=== PATIENT | male | born 1955 | race Caucasian/White ===

== ENCOUNTER 2020-10-09 16:30 | Emergency (ER) | payer OTHER, SELFPAY ==
[2020-10-09 16:43] VITALS: BP 153/83; PULSE 82; RESP 20; TEMP 36.6; O2SAT 98
--- NOTE | 2020-10-09 16:44 | ED.URI ---
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 Patient states his work informed him he should get a Covid test after a member presumably tested positive. 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 He has no complaints, was seen by his primary doctor today, and expresses specifically no fever, cough, S OB, rash, vomiting/diarrhea, CP, AVILES, URI symptoms, other/family contacts. Related Data Home Medications Medication Instructions Recorded Confirmed carvedilol 3.125 mg tablet 3.125 mg PO Q12H 08/17/19 10/09/20 cetirizine 10 mg tablet 10 mg PO DAILY 08/17/19 10/09/20 multivitamin 1 tablet PO DAILY 08/17/19 10/09/20 omega-3 fatty acids 1,000 mg 1,000 mg PO DAILY 08/17/19 10/09/20 capsule famotidine 20 mg DAILY 10/09/20 10/09/20 Allergies Allergy/AdvReac Type Severity Reaction Status Date / Time No Known Allergies Allergy Unknown Uncoded 08/17/19 13:33 Review of Systems Review of Systems: Narrative: General/Constitutional: No weight loss,fever Eyes: N0: Redness,discharge Ears/Nose/Throat: No: Epistaxis,ear discharge Respiratory: Denies: Hemoptysis Gastrointestinal: No Vomiting, Bleeding-rectal Skin: No Lumps, eruption Neurologic: No Focal Weakness,Sz Hematologic: Denies: Petechiae/Purpura Psychiatric: No: Suicida ideationl All Other Systems: Reviewed and Negative PMF Past Medical History Medical History (Updated 10/09/20 @ 17:03 by See Parks MD) Hearing loss Laceration of middle finger with tendon involvement Right carpal tunnel syndrome Vision loss Surgical History Surgical History (Updated 08/21/19 @ 10:40 by Ember Marie) H/O: vasectomy History of carpal tunnel surgery of left wrist History of carpal tunnel surgery of right wrist Family History Family History (Updated 08/21/19 @ 10:42 by Ember Marie) Other Arthritis Cancer Diabetes mellitus Hypertension Social History Social History (Updated 08/21/19 @ 10:47 by Ember Marie) Smoking status: Never smoker Alcohol intake: former 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 Gender identity (if verbalized by the patient): Male Exam Narrative: Exam Narrative: General Appearance: Well appearing, Conjunctiva clear Ears: External ear normal Nose: Normal nose Mouth/Throat: Normal appearing, Normal lips Neck: Supple Respiratory: Airway patent, No respiratory distress Musculoskeletal: Full ROM Skin: Warm, Dry Neurological: A&O x3, Normal affect Course Vital Signs Vital signs: Vital Signs Temperature 98 F 10/09/20 16:43 Pulse Rate 82 10/09/20 16:43 Respiratory Rate 20 10/09/20 16:43 Blood Pressure 153/83 H 10/09/20 16:43 Pulse Oximetry 98 10/09/20 16:43 Temperature 98 F 10/09/20 16:43 Pulse Rate 82 10/09/20 16:43 Respiratory Rate 20 10/09/20 16:43 Blood Pressure 153/83 H 10/09/20 16:43 Pulse Oximetry 98 10/09/20 16:43 MDM - URI/Sore Throat Lab Data Labs: Lab Results 10/09/20 Range/Units 16:30 POC SARS CoV-2 Ag Negative (Negative) Discharge Plan Discharge Clinical Impression: Contact with and (suspected) exposure to other viral communicable diseases Patient Disposition: Home, Self-Care Condition: Stable Prescriptions: No Action famotidine 20 mg tablet 20 mg DAILY RF: 0 carvedilol 3.125 mg tablet 3.125 mg PO Q12H RF: 0 cetirizine 10 mg tablet 10 mg PO DAILY RF: 0 omega-3 fatty acids 1,000 mg capsule 1,000 mg PO DAILY RF: 0 multivitamin [Multiple Vitamins] Tablet 1 tablet PO DAILY RF: 0 F
== END 2020-10-09 17:10 | disposition home or self-care (01) ==
PROVIDERS: Emergency Provider Emergency Medicine; PCP Family Medicine
DX: Z20.822 Contact with and (suspected) exposure to COVID-19 (principal)
CPT/HCPCS: 87426; 99213; C9803; G0463

== ENCOUNTER 2020-12-09 08:00 | Outpatient (CLI) | payer OTHER, SELFPAY | END 2020-12-09 08:01 | disposition home or self-care (01) | LOC: ANHCOVIDVC 08:00 | PROVIDERS: PCP Family Medicine | DX: Z23 Encounter for immunization (principal) | CPT/HCPCS: 0001A; 91300 ==

== ENCOUNTER 2020-12-30 08:02 | Outpatient (CLI) | payer OTHER, SELFPAY | END 2020-12-30 08:03 | disposition home or self-care (01) | LOC: ANHCOVIDVC 08:03 | PROVIDERS: PCP Family Medicine | DX: Z23 Encounter for immunization (principal) | CPT/HCPCS: 0002A; 91300 ==

== ENCOUNTER 2021-02-13 07:40 | Outpatient (CLI) | payer OTHER, SELFPAY ==
--- NOTE | ~2021-02-13 | XR_ITS ---
XR cervical spine 4-5V 02/13/2021 08:04 Indication: Neck pain and left arm numbness. Procedure: 5 views of the cervical spine Comparison: No prior studies for comparison. Findings: Vertebral body heights are disc spaces are preserved. No fracture or traumatic malalignment . No prevertebral soft tissue swelling. Lung apices are normal. Odontoid process within normal limits . There is mild multilevel uncinate and facet degenerative change. Impression: 1: Mild cervical spondylosis. Reviewed, dictated and finalized at location A. Impression: 1: Mild cervical spondylosis.
== END 2021-02-13 07:41 | disposition home or self-care (01) ==
PROVIDERS: PCP Family Medicine; Visit Provider Physician Assistant
DX: M47.812 Spondylosis without myelopathy or radiculopathy, cervical region (principal)
CPT/HCPCS: 72050

== ENCOUNTER 2021-07-20 10:07 | Emergency (ER) | payer OTHER, SELFPAY ==
--- NOTE | 2021-07-20 10:19 | ED.URI ---
HPI - URI/Sore Throat General Chief Complaint: Upper Respiratory Infection Stated Complaint: Cough,Sore Throat,Fever,Vomiting Time Seen by Provider: 07/20/21 11:05 Source: patient and RN notes reviewed Mode of arrival: ambulatory Limitations: no limitations History of Present Illness HPI Narrative: 55-year-old male presents with concern for cough, sore throat, fever, vomiting, body aches. He reports symptoms started on Wednesday after he received a shingles and pneumonia vaccine on the same day. He reports he has been fully vaccinated for Covid. He reports he has taken Tylenol periodically with no relief. He denies known sick contacts. MD elicited complaint: cough Related Data Home Medications Medication Instructions Recorded Confirmed carvedilol 3.125 mg tablet 3.125 mg PO Q12H 08/17/19 10/09/20 cetirizine 10 mg tablet 10 mg PO DAILY 08/17/19 10/09/20 multivitamin 1 tablet PO DAILY 08/17/19 10/09/20 omega-3 fatty acids 1,000 mg 1,000 mg PO DAILY 08/17/19 10/09/20 capsule famotidine 20 mg DAILY 10/09/20 10/09/20 Allergies Allergy/AdvReac Type Severity Reaction Status Date / Time No Known Allergies Allergy Unknown Uncoded 07/20/21 10:34 Review of Systems Review of Systems: CONSTITUTIONAL: Denies malaise, chills, sweats, or fever. EYES: Denies visual changes, redness, or discharge. ENT: Denies rhinorrhea, congestion, sinus pain, otalgia report sore throat. CARDIOVASCULAR: Denies chest pain, palpitations, or edema. RESPIRATORY: Reports cough. Denies dyspnea. GASTROINTESTINAL: Denies abdominal pain, diarrhea. Reports nausea and vomiting SKIN: Denies rash or itching. MUSCULOSKELETAL: Reports myalgia. NEUROLOGIC: Denies headache. All systems reviewed & are unremarkable except as noted in HPI and below PMFSH Past Medical History Medical History (Updated 07/20/21 @ 11:18 by Angie Rico NP) Hearing loss Laceration of middle finger with tendon involvement Right carpal tunnel syndrome Vision loss Surgical History Surgical History (Updated 08/21/19 @ 10:40 by Ember Marie) H/O: vasectomy History of carpal tunnel surgery of left wrist History of carpal tunnel surgery of right wrist Family History Family History (Updated 08/21/19 @ 10:42 by Ember Marie) Other Arthritis Cancer Diabetes mellitus Hypertension Social History Social History (Updated 08/21/19 @ 10:47 by Ember Marie) Smoking status: Never smoker Alcohol intake: former Alcohol use details: No alcohol since Jun 1978 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 There is no relevant family history pertinent to the presenting complaint Exam Narrative: GENERAL: Nontoxic-appearing, well-nourished, and in no acute distress. HEAD: Normocephalic EYES: PERRLA, conjunctivae clear ENT: Nares clear. Mucous membranes moist. TM pearly lora with dull light reflex bilaterally; no tragal tenderness. Oropharynx not erythematous without lesions. Tonsils not enlarged and without exudate, no drooling, no hoarseness, no trismus, uvula midline. NECK: Supple. No lymphadenopathy CHEST: Clear to auscultation, breath sounds equal. No wheezing, rhonchi, rales, or stridor. No respiratory distress, speaks in full sentences. Cough noted HEART: Regular rate and rhythm. No murmur heard. SKIN: Warm, dry, no rash. NEURO: Alert and oriented x3. PSYCH: Normal mood and affect Course Course Emergency Course: Patient is aware of diagnosis, understands and agrees to treatment plan. Anticipatory guidance given. Patient agrees to follow-up as directed and is aware of reasons to seek care at the emergency department. Portions of this record may have been created with voice recognition software Vital Signs Vital signs: Reviewed. MDM - URI/Sore Throat MDM Narrative Medical
[2021-07-20 10:27] VITALS: BP 134/79; PULSE 79; RESP 18; TEMP 36.6; O2SAT 100
== END 2021-07-20 11:35 | disposition home or self-care (01) ==
PROVIDERS: Emergency Provider Nurse Practitioner; PCP Family Medicine
DX: J40 Bronchitis, not specified as acute or chronic (principal)
CPT/HCPCS: 87804; 99213; G0463

== ENCOUNTER 2021-10-02 12:06 | Emergency (ER) | payer OTHER, MEDICARE, SELFPAY ==
[2021-10-02] VITALS (14 sets, daily range): BP systolic 118–140; BP diastolic 75–88; PULSE 87–111; RESP 15–37; TEMP 37–37.4; O2SAT 100
--- NOTE | ~2021-10-02 | XR_ITS ---
EXAMINATION: XR chest 1V portable DATE: 10/02/2021 12:27 INDICATION: Shortness of breath. COVID-19 pneumonia. TECHNIQUE: A single frontal view of the chest was obtained. COMPARISON: None. FINDINGS: There is mild scarring at right lung apex. There are mild airspace opacities in right mid a nd lower lung zones. No pleural effusion or pneumothorax. The heart size is normal. IMPRESSION: 1. Mild airspace opacities in right mid and lower lung zones, consistent with atelectasis versus pneu monia. Reviewed, dictated and finalized at location E. NT ACCOUNT ASSISTANT IMPRESSION: 1. Mild airspace opacities in right mid and lower lung zones, consistent with a telectasis versus pneumonia.
--- NOTE | 2021-10-02 12:15 | ECG_ITS ---
Measurements Intervals [place] Rate: 96 P: 48 [place]: 169 QRS: 27 QRSD: 82 T: 42 QT: 322 QTc: 408 Interpretive Statements SINUS RHYTHM INCOMPLETE RIGHT BUNDLE BRANCH BLOCK BASELINE ARTIFACT- III, AVR, AVF, V1-V6 BORDERLINE ECG Electronically Signed On 10-02-2021 15:05:04 BARREL CHARRER by Jorje Pratt D.O.
[2021-10-02 12:36] LABS: Basophils Percent Auto 0.2 % (0.2-1.2); Eosinophils Absolute Auto 0.2 K/mm3 (0-0.3); Eosinophils Percent Auto 1.3 % (0-4.4); Hematocrit 45.3 % (42.0-52.0); Hemoglobin 15.6 g/dL (14.0-18.0); Immature Granulocyte Absolute 0.04 K/mm3 (0.00-0.031); Immature Granulocyte Percent A 0.3 % (0-0.5); Lymphocytes Absolute Auto 1.62 K/mm3 (0.9-3.2); Lymphocytes Percent Auto 12.7 % (18.3-44.2); Mean Corpuscular HGB Conc 34.4 g/dl (32-36); Mean Corpuscular Hemoglobin 32.1 pg (26-34); Mean Corpuscular Volume 93.2 fl (80-100); Mean Platelet Volume 9.3 fl (7.4-10.4); Monocytes Absolute Auto 1.3 K/mm3 (0.1-0.6); Monocytes Percent Auto 9.8 % (2.6-8.5); Neutrophils Absolute Auto 9.7 K/mm3 (1.3-6.7); Neutrophils Percent Auto 75.7 % (45.5-73.1); Platelet Count Result 271 k/mm3 (150-375); Red Blood Count 4.86 M/mm3 (4.6-6.20); Red Cell Distribution Width 12.1 % (11.5-14.5); White Blood Count 12.8 K/mm3 (4.5-10.0)
[2021-10-02 12:48] LABS: Alanine Aminotransferase 27 U/L (4-50); Albumin Level 4.1 g/dL (3.5-5.1); Alkaline Phosphatase 85 U/L (38-126); Anion Gap 5 mmol/L (8-16); Aspartate Amino Transferase 31 U/L (17-59); Blood Urea Nitrogen 15 mg/dL (9-20); Carbon Dioxide 30 mmol/L (22-30); Chloride 102 mmol/L (98-107); Estimated CRCL calculation 71 ml/min; Estimated Glomerular Filt Rate > 60; Glucose 119 mg/dL (65-110); Potassium 4.1 mmol/L (3.4-5.0); Sodium 137 mmol/L (137-145)
--- NOTE | 2021-10-02 12:58 | ED.SOB ---
HPI - SOB/Dyspnea General Chief Complaint: Shortness of Breath/Dyspnea Stated Complaint: Covid-19+ pneumonia? Time Seen by Provider: 10/02/21 12:45 Source: patient Mode of arrival: ambulatory Limitations: no limitations History of Present Illness HPI Narrative: 65-year-old male Here for cough and shortness of breath Patient said that 2 weeks ago he had onset of an illness with predominantly diarrhea nausea and muscle aches but also a cough He had a positive Covid test at that time At some point he also took a Medrol Dosepak and sounds like he may also have an inhaler of some sort Here because he still has kind of a harsh cough and when he coughs he is short of breath Non-smoker Related Data Home Medications Medication Instructions Recorded Confirmed carvedilol 3.125 mg tablet 3.125 mg PO Q12H 08/17/19 07/20/21 cetirizine 10 mg tablet 10 mg PO DAILY 08/17/19 07/20/21 multivitamin 1 tablet PO DAILY 08/17/19 07/20/21 omega-3 fatty acids 1,000 mg 1,000 mg PO DAILY 08/17/19 07/20/21 capsule famotidine 20 mg DAILY 10/09/20 07/20/21 bimatoprost [Lumigan] 2 drp EACH EYE DAILY 07/20/21 07/20/21 metoprolol succinate 25 mg PO DAILY 07/20/21 07/20/21 Allergies Allergy/AdvReac Type Severity Reaction Status Date / Time No Known Allergies Allergy Verified 10/02/21 12:12 Review of Systems Review of Systems: All systems reviewed & are unremarkable except as noted in HPI and below Constitutional: Constitutional: Reports no additional constitutional complaints, Denies chills, Reports fatigue, Denies fever(s), Denies headache(s) and Reports weakness Eyes: Eyes: Reports no additional eye complaints and Denies change in vision ENT: Denies headache(s) and Denies sore throat Cardiovascular: Cardiovascular: Denies chest pain and Denies dyspnea Respiratory: Respiratory: Reports chest congestion, Reports cough and Reports dyspnea Gastrointestinal: Gastrointestinal: Denies abdominal pain, Reports diarrhea and Denies vomiting Genitourinary: Genitourinary: Denies dysuria and Denies urinary frequency Musculoskeletal: Musculoskeletal: Denies deformity, Denies arthralgias, Denies joint swelling and Denies numbness Integumentary/Breasts: Skin/Breast: Denies rash and Denies wounds Neurologic: Denies headache(s), Denies focal weakness and Denies numbness Psychiatric: Psychiatric: Reports no additional psychiatric complaints Endocrine: Endocrine: Reports no additional endocrine complaints Hematologic/Lymphatic: Hematologic/Lymphatic: Reports no additional hematologic/lymphatic complaints Allergic/Immunologic: Allergic/Immunologic: Reports no additional allergic/immunologic complaints PMFSH Past Medical History Medical History Hearing loss Laceration of middle finger with tendon involvement Right carpal tunnel syndrome Vision loss Surgical History Surgical History H/O: vasectomy History of carpal tunnel surgery of left wrist History of carpal tunnel surgery of right wrist Family History Family History Other Arthritis Cancer Diabetes mellitus Hypertension Social History Social History Smoking status: Never smoker Alcohol intake: former Alcohol use details: No alcohol since Jun 1978 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
[2021-10-02] MEDS: ALBUTEROL SULFATE (*SP) INHALER 4 PUFF INHALATION (13:35)
[2021-10-02] MEDS: DOXYCYCLINE HYCLATE 100 MG TABLET PO (14:00)
== END 2021-10-02 14:05 | disposition home or self-care (01) ==
PROVIDERS: Emergency Medicine; Emergency Provider Emergency Medicine; PCP Family Medicine
DX: U07.1 COVID-19 (principal); R05.9 Cough, unspecified; I45.10 Unspecified right bundle-branch block; R91.8 Other nonspecific abnormal finding of lung field
CPT/HCPCS: 36415; 71045; 80053; 85025; 93005; 99283; A9270

== ENCOUNTER 2021-10-22 08:42 | Outpatient (CLI) | payer OTHER, MEDICARE, SELFPAY ==
--- NOTE | ~2021-10-22 | XR_ITS ---
XR chest 2V 10/22/2021 08:57 Indication: Pneumonia. Covid 19. Procedure: 2 view chest Comparison: 10/02/2021 Findings: There has been near complete resolution of bibasilar pneumonia. No pleural effusion. Heart size normal. No edema or pneumothorax. Impression: 1: Near-complete resolution of bibasilar pneumonia. Reviewed, dictated and finalized at location B. MILL OPERATOR Impression: 1: Near-complete resolution of bibasilar pneumonia.
== END 2021-10-22 08:43 | disposition home or self-care (01) ==
PROVIDERS: PCP Family Medicine; Visit Provider Physician Assistant
DX: U07.1 COVID-19 (principal); J12.82 Pneumonia due to coronavirus disease 2019
CPT/HCPCS: 71046

== ENCOUNTER 2022-02-07 10:04 | Emergency (ER) | payer MEDICARE, OTHER, SELFPAY ==
--- NOTE | 2022-02-07 10:25 | ED.GENADULT ---
HPI - General Adult General Chief complaint: Upper Respiratory Infection Stated complaint: sorethroat,lt ear pain Time Seen by Provider: 02/07/22 10:25 History of Present Illness HPI narrative: 66-year-old male patient presents to the [facility] with complaints of sore throat and left ear pain. Patient states this has been going on for about 3 days now. Denies fevers, body aches or chills. Patient states he has had 3 COVID vaccines and was last diagnosed with COVID in August 2021. Patient denies any chest pain, shortness of breath. Patient states he has had a lot of drainage. Denies any chest pain or shortness of breath. Denies any nausea, vomiting or diarrhea. Patient states he does not get flu shots typically because he got sick from one and has never had one again. Patient does take Zyrtec and famotidine daily for allergies. Related Data Home Medications Medication Instructions Recorded Confirmed cetirizine 10 mg tablet 10 mg PO DAILY 08/17/19 02/07/22 multivitamin (Multiple Vitamins 1 tablet PO DAILY 08/17/19 02/07/22 tablet) omega-3 fatty acids 1,000 mg 1,000 mg PO DAILY 08/17/19 02/07/22 capsule famotidine 20 mg tablet 20 mg BID 10/09/20 02/07/22 glucosamine sulf dipot 1 cap PO DAILY 02/07/22 02/07/22 chlr,msm,chond 550 mg-C 30 mg-oren 1 mg capsule (Glucosamine Chondroitin) Allergies Allergy/AdvReac Type Severity Reaction Status Date / Time No Known Allergies Allergy Verified 02/07/22 10:43 Review of Systems Review of Systems: CONSTITUTIONAL: Denies fever, chills, or sweats. EYES: Denies visual changes, redness, or discharge. ENT: Positive rhinorrhea, congestion, sore throat, and left otalgia. CARDIOVASCULAR: Denies chest pain, palpitations, or edema. RESPIRATORY: Denies cough or dyspnea. GASTROINTESTINAL: Denies abdominal pain, nausea, vomiting, or diarrhea. GENITOURINARY: Denies dysuria or hematuria. SKIN: Denies rash or itching. MUSCULOSKELETAL: Denies back pain, joint pain, or myalgia. NEUROLOGIC: Denies headache, numbness, or weakness. PSYCHIATRIC: Denies anxiety or depression. 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 There is no relevant family history pertinent to the presenting complaint. Exam Narrative: GENERAL: Well-appearing, well-nourished, and in no acute distress. HEAD: Normocephalic, atraumatic. EYES: PERRLA and EOMI. ENT: Nares with erythema and edema noted bilaterally, dry rhinorrhea in bilateral nares, no epistaxis. Mucous membranes moist. Posterior pharynx with no erythema, tonsillar lodgment, exudates or lesions present. There is some evidence of postnasal drip noted. Bilateral TMs are clear with no erythema or foreign bodies to the canal. NECK: Supple. No lymphadenopathy CHEST: Clear to auscultation. No respiratory distress. HEART: Regular rate and rhythm. No murmur heard. Normal peripheral pulses. ABDOMEN: Soft, nontender, nondistended, normal active bowel sounds. EXTREMITIES: Normal range of motion. No edema. SKIN: Warm, dry, no rash. NEURO: N
[2022-02-07 10:31] VITALS: BP 132/84; PULSE 70; RESP 18; TEMP 36.7; O2SAT 100
== END 2022-02-07 11:14 | disposition home or self-care (01) ==
PROVIDERS: Emergency Provider Nurse Practitioner Family; PCP Family Medicine
DX: J06.9 Acute upper respiratory infection, unspecified (principal); J30.9 Allergic rhinitis, unspecified; Z20.822 Contact with and (suspected) exposure to COVID-19; Z98.52 Vasectomy status; Z86.16 Personal history of COVID-19
CPT/HCPCS: 87081; 87426; 87880; 99213; C9803; G0463

== ENCOUNTER 2022-02-21 10:02 | Emergency (ER) | payer MEDICARE, OTHER, SELFPAY ==
[2022-02-21 10:22] VITALS: BP 134/78; PULSE 61; RESP 20; TEMP 36.3; O2SAT 99
[2022-02-21] MEDS: MECLIZINE HCL 25 MG TABLET 50 MG PO (10:56)
--- NOTE | 2022-02-21 10:58 | ED.GENADULT ---
HPI - General Adult General Chief complaint: Upper Respiratory Infection Stated complaint: dizziness,nausea Time Seen by Provider: 02/21/22 10:25 Source: patient Mode of arrival: ambulatory Limitations: no limitations History of Present Illness HPI narrative: Patient presents today complaining of dizziness that started yesterday. Dizziness was intermittent yesterday, but constant today. Dizziness is exacerbated with head movement. He vomited once this morning. Denies headache, vision changes, numbness or tingling, weakness, chest pain or shortness of breath, photophobia, phonophobia, fever. States he was in urgent care approximately 1 month ago and still has a persistent sore throat. Denies any senp-epr-eqwmtma treatment prior to arrival. No history of vertigo Related Data Home Medications Medication Instructions Recorded Confirmed cetirizine 10 mg tablet 10 mg PO DAILY 08/17/19 02/21/22 multivitamin (Multiple Vitamins 1 tablet PO DAILY 08/17/19 02/21/22 tablet) omega-3 fatty acids 1,000 mg 1,000 mg PO DAILY 08/17/19 02/21/22 capsule famotidine 20 mg tablet 20 mg BID 10/09/20 02/21/22 glucosamine sulf dipot 1 cap PO DAILY 02/07/22 02/21/22 chlr,msm,chond 550 mg-C 30 mg-oren 1 mg capsule (Glucosamine Chondroitin) Allergies Allergy/AdvReac Type Severity Reaction Status Date / Time No Known Allergies Allergy Verified 02/21/22 10:28 Review of Systems Review of Systems: CONSTITUTIONAL: Denies body aches, fever, chills, or sweats. EYES: Denies visual changes, redness, or discharge. ENT: Denies rhinorrhea, congestion, sore throat, or otalgia. CARDIOVASCULAR: Denies chest pain, palpitations, or edema. RESPIRATORY: Denies cough or dyspnea. GASTROINTESTINAL: Denies abdominal pain, nausea, vomiting, or diarrhea. GENITOURINARY: Denies dysuria or hematuria. SKIN: Denies rash, itching, or wounds. MUSCULOSKELETAL: Denies back pain, joint pain, or myalgia. NEUROLOGIC: Denies headache, numbness, tingling, or weakness.+ Dizziness PSYCH: Denies depression or anxiety. 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 Please see nursing chart for further information. There is no relevant family history pertinent to the presenting complaint Exam Narrative: GENERAL: Well-appearing, well-nourished, and in no acute distress. HEAD: Normocephalic, atraumatic. EYES: EOMI. PERRL. No nystagmus. No redness or drainage. Conjunctivae normal. EKWOK. ENT: Mucous membranes pink and moist. Nares clear. No rhinorrhea. TMs normal bilaterally. Throat normal. Uvula midline. NECK: Normal AROM. Supple. No lymphadenopathy. CHEST: No respiratory distress. Clear to auscultation. HEART: Regular rate and rhythm. No murmur appreciated. Normal peripheral pulses. EXTREMITIES: Normal range of motion. No edema. SKIN: Warm, dry, no rash. Capillary refill normal. Normal skin turgor. NEURO: No focal deficits. Alert and oriented x3. Gait unsteady due to dizziness. PSYCH: Normal affect. No signs
== END 2022-02-21 11:09 | disposition home or self-care (01) ==
PROVIDERS: Emergency Provider Nurse Practitioner; PCP Family Medicine
DX: R42 Dizziness and giddiness (principal); Z20.822 Contact with and (suspected) exposure to COVID-19; Z98.52 Vasectomy status
CPT/HCPCS: 87081; 87426; 87804; 87880; 99213; A9270; C9803; G0463

== ENCOUNTER 2023-10-02 09:23 | Emergency (ER) | payer MEDICARE, SELFPAY ==
--- NOTE | ~2023-10-02 | XR_ITS ---
EXAMINATION: XR chest 2V DATE: 10/02/2023 10:00 INDICATION: Cough TECHNIQUE: PA and lateral views of the chest are obtained. COMPARISON: 10/22/2021 FINDINGS: The lungs are free of acute opacities. No pleural effusion or pneumothorax. The cardiomedia stinal silhouette is normal. There is mild thoracic spondylosis. There is scarring in the right lung apex. IMPRESSION: 1. No acute cardiopulmonary abnormality. Reviewed, dictated and finalized at location F. IFICATION OFFICER
[2023-10-02 09:40] VITALS: BP 147/81; PULSE 71; RESP 18; TEMP 36.6; O2SAT 100
[2023-10-02 09:41] VITALS: BP 147/81; PULSE 71; RESP 18; TEMP 36.6; O2SAT 100
--- NOTE | 2023-10-02 09:54 | ED.URI ---
HPI - URI/Sore Throat General Chief Complaint: Upper Respiratory Infection Stated Complaint: cold /flu like symtoms Time Seen by Provider: 10/02/23 09:43 Source: patient and RN notes reviewed Mode of arrival: ambulatory Limitations: no limitations History of Present Illness HPI Narrative: Patient presents today with a one-week history of productive cough, postnasal drip, rhinorrhea, fatigue, and watering eyes. Denies shortness of breath or fever. No history of asthma or COPD. He has been using Aleve, cough drops, and Vicks Vaporub Related Data Home Medications Medication Instructions Recorded Confirmed cetirizine 10 mg tablet 10 mg PO DAILY 08/17/19 10/02/23 famotidine 20 mg tablet 20 mg BID 10/09/20 10/02/23 Allergies Allergy/AdvReac Type Severity Reaction Status Date / Time No Known Allergies Allergy Verified 10/02/23 09:40 Review of Systems Review of Systems: CONSTITUTIONAL: Denies body aches, fever, chills, or sweats.+ fatigue EYES: Denies visual changes, redness, or discharge.+ I watering ENT: Denies congestion, sore throat, or otalgia.+ rhinorrhea, postnasal drip CARDIOVASCULAR: Denies chest pain, palpitations, or edema. RESPIRATORY: Denies dyspnea.+ cough GASTROINTESTINAL: Denies abdominal pain, nausea, vomiting, or diarrhea. GENITOURINARY: Denies dysuria or hematuria. SKIN: Denies rash, itching, or wounds. MUSCULOSKELETAL: Denies back pain, joint pain, or myalgia. NEUROLOGIC: Denies headache, numbness, tingling, or weakness. PSYCH: Denies depression or anxiety. 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 Please see nursing chart for further information. There is no relevant family history pertinent to the presenting complaint Exam Narrative: GENERAL: Mildly ill-appearing, well-nourished, and in no acute distress. HEAD: Normocephalic, atraumatic. EYES: EOMI. No redness or drainage. Conjunctivae normal. ENT: Mucous membranes pink and moist. Nares clear. No rhinorrhea. TMs normal bilaterally. Throat normal. Uvula midline. NECK: Normal AROM. Supple. No lymphadenopathy. CHEST: No respiratory distress. Mild crackles in the left lower lobe, otherwise clear HEART: Regular rate and rhythm. No murmur appreciated. EXTREMITIES: Normal range of motion. No edema. SKIN: Warm, dry, no rash. Capillary refill normal. Normal skin turgor. NEURO: No focal deficits. Alert and oriented x3. Gait steady. PSYCH: Normal affect. No signs of depression or anxiety. Course Course Level of Care: Express Care Visit Vital Signs Vital signs: Vital Signs Temperature 97.8 F 10/02/23 09:40 Pulse Rate 71 10/02/23 09:40 Respiratory Rate 18 10/02/23 09:40 Blood Pressure 147/81 H 10/02/23 09:40 Pulse Oximetry 100 10/02/23 09:40 Oxygen Delivery Room Air 10/02/23 09:40 Temperature 97.8 F 10/02/23 09:41 Pulse Rate 71 10/02/23 09:41 Respiratory Rate 18 10/02/23 09:41 Blood Press
== END 2023-10-02 10:21 | disposition home or self-care (01) ==
PROVIDERS: Emergency Provider Nurse Practitioner; PCP Family Medicine
DX: J06.9 Acute upper respiratory infection, unspecified (principal)
CPT/HCPCS: 71046; 99213; G0463

== ENCOUNTER 2023-12-04 08:24 | Emergency (ER) | payer MEDICARE, SELFPAY ==
[2023-12-04 08:36] VITALS: BP 172/84; PULSE 68; RESP 20; TEMP 36.5; O2SAT 98
--- NOTE | 2023-12-04 08:38 | ED.URI ---
HPI - URI/Sore Throat General Chief Complaint: Upper Respiratory Infection Stated Complaint: Sore Throat,Bilateral Ear Irritation Time Seen by Provider: 12/04/23 08:38 Source: patient Mode of arrival: ambulatory Limitations: no limitations History of Present Illness HPI Narrative: 68-year-old male presents with complaint nasal congestion, postnasal drainage, sore throat, bilateral ear pain, dry cough, fatigue and weakness for 3 days. Afebrile. Denies nausea vomiting diarrhea. No chest pain or shortness of breath. Taking DayQuil NyQuil cold and flu and ibuprofen to treat symptoms. All systems reviewed and negative except as noted above. Related Data Home Medications Medication Instructions Recorded Confirmed cetirizine 10 mg tablet 10 mg PO DAILY 08/17/19 12/04/23 famotidine 20 mg tablet 20 mg BID 10/09/20 12/04/23 atorvastatin 10 mg tablet 10 mg PO HS 12/04/23 12/04/23 latanoprost 0.005 % eye drops 1 drp EACH EYE HS 12/04/23 12/04/23 Allergies Allergy/AdvReac Type Severity Reaction Status Date / Time No Known Allergies Allergy Verified 12/04/23 08:30 Review of Systems Review of Systems: CONSTITUTIONAL: Denies fever, chills, or sweats. EYES: Denies visual changes, redness, or discharge. ENT: Reports rhinorrhea, congestion, sinus pressure, sore throat, bilateral otalgia. CARDIOVASCULAR: Denies chest pain, palpitations, or edema. RESPIRATORY: reports cough. Denies dyspnea. GASTROINTESTINAL: Denies abdominal pain, nausea, vomiting, or diarrhea. GENITOURINARY: Denies dysuria or hematuria. SKIN: Denies rash or itching. MUSCULOSKELETAL: Denies back pain, joint pain, or myalgia. NEUROLOGIC: Denies headache, numbness, or weakness. PSYCHIATRIC: Denies anxiety or depression. All other systems reviewed are negative, except as documented in HPI. 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 There is no relevant family history pertinent to the presenting complaint. Exam Narrative: GENERAL: This is a well-nourished, well-developed patient, in no apparent distress. HEAD: normocephalic, atraumatic. EYES: PERRL. Sclera clear/white. Vision is grossly intact. EARS: External ears normal, auditory canals clear and without drainage, Fluid to bilateral TMs, dull light reflex with mild erythema without perforation. Hearing grossly intact. NOSE: External nose normal with congestion, clear nasal drainage, erythema to bilateral nares THROAT: Mucous membranes moist, postnasal drainage without erythema or swelling. NECK: Neck supple, non-tender without lymphadenopathy, masses or thyromegaly. CARDIOVASCULAR: Regular rate and rhythm without murmurs, gallops, or rubs. RESPIRATORY: Clear to auscultation. Breath sounds equal bilaterally. No wheezes, rales, or rhonchi. SKIN: warm, Dry, intact with no suspicious lesions or rash, good texture and turgor. NEURO: awake, alert, and oriented to person, place and time. There were no obvious focal neurologic abnormalities. EXTREMI
== END 2023-12-04 08:54 | disposition home or self-care (01) ==
PROVIDERS: Emergency Provider Nurse Practitioner Family; PCP Family Medicine
DX: H65.03 Acute serous otitis media, bilateral (principal); J01.90 Acute sinusitis, unspecified; Z98.52 Vasectomy status
CPT/HCPCS: 99213; G0463

== ENCOUNTER 2024-08-14 16:06 | Emergency (ER) | payer MEDICARE, SELFPAY ==
--- NOTE | ~2024-08-14 | XR_ITS ---
EXAMINATION: XR chest 2V DATE: 08/14/2024 18:01 INDICATION: Cough. TECHNIQUE: Frontal and lateral views of the chest were obtained. COMPARISON: Chest 2 views 10/02/2023 FINDINGS: There is no pneumonia, pleural effusion, or pneumothorax. The heart size is normal. IMPRESSION: 1. No acute cardiopulmonary disease. Reviewed, dictated and finalized at location A. RIFUGAL EXTRACTOR OPERATOR
[2024-08-14 17:17] VITALS: BP 135/80; PULSE 81; RESP 16; TEMP 36.1; O2SAT 99
[2024-08-14 17:45] LABS: EDCOVIDSCREEN Negative (Negative); EDINFLUASCREEN Negative (Negative); EDINFLUBSCREEN Negative (Negative); EDSTREPNEGPOS1 Negative (Negative)
--- NOTE | 2024-08-14 17:45 | ED.URI ---
HPI - URI/Sore Throat General Chief Complaint: Upper Respiratory Infection Stated Complaint: coughing and phlegm Time Seen by Provider: 08/14/24 17:45 Source: patient, RN notes reviewed and old records reviewed Mode of arrival: ambulatory Limitations: no limitations History of Present Illness HPI Narrative: 68-year-old male presents to the [facility] with productive cough that started several days ago. Had seen his primary care provider for ear pain. Was not given a antibiotic for a slight ear infection Onset (ago): day(s) Related Data Home Medications ?Medication ?Instructions ?Recorded ?Confirmed ?Last Taken ?Type cetirizine 10 mg tablet 10 mg PO DAILY 08/17/19 12/04/23 Unknown History famotidine 20 mg tablet 20 mg BID 10/09/20 12/04/23 Unknown History atorvastatin 10 mg tablet 10 mg PO HS 12/04/23 12/04/23 Unknown History latanoprost 0.005 % eye drops 1 drp EACH EYE HS 12/04/23 12/04/23 Unknown History Allergies Allergy/AdvReac Type Severity Reaction Status Date / Time No Known Allergies Allergy Verified 08/14/24 17:38 Review of Systems Review of Systems: All systems reviewed & are unremarkable except as noted in HPI and below Constitutional: Constitutional: Reports no additional constitutional complaints ENT: Reports as per HPI Cardiovascular: Cardiovascular: Reports no additional cardiovascular complaints, Denies chest pain and Denies dyspnea Respiratory: Respiratory: Reports as per HPI, Denies chest congestion, Reports cough and Denies dyspnea Gastrointestinal: Gastrointestinal: Reports no additional gastrointestinal complaints, Denies abdominal pain, Denies nausea and Denies vomiting Musculoskeletal: Musculoskeletal: Reports no additional musculoskeletal complaints Integumentary/Breasts: Skin/Breast: Reports system reviewed and no additional complaints, except as docu PMFSH Past Medical History Medical History Hearing loss Laceration of middle finger with tendon involvement Right carpal tunnel syndrome Vision loss Surgical History Surgical History H/O: vasectomy History of carpal tunnel surgery of left wrist History of carpal tunnel surgery of right wrist Family History Family History Other Arthritis Cancer Diabetes mellitus Hypertension Social History Social History Smoking status: Never smoker Alcohol intake: former Alcohol use details: No alcohol since Jun 1978 Occupation/Education: occupation 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 There is no relevant family history pertinent to the patient complaint. Exam Const: General: cooperative, healthy appearing, comfortable, no acute distress, well developed, alert and well nourished Nutritional Appearance: well nourished Orientation/consciousness: patient oriented x3 Limitations: no limitations HENMT: Head: normal to inspection Ears: hearing grossly normal bilaterally, external ears normal, TM's normal bilaterally, EAC's normal, mastoids normal and no periauricular adenopathy Face/Nose/Sinus: Normal external nose present, normal facial exam and face symmetric Face and sinus: normal facial exam and face symmetric Mouth: Yes Normal oral and palatal mucosa present, Yes lip normal and Yes tongue normal Throat: posterior oropharynx normal, uvula midline and no uvular edema Eyes: General: appearance normal, both eyes and all related structures Alignment and Position: alignment normal Periorbital: periorbital findings normal Neck: Neck: normal visual inspection, full ROM, no lymphadenopathy and no meningeal signs Chest: Chest palpation & inspection: normal inspection of the chest Resp: Effort & Inspection: normal respiratory effort and able to speak in complete sentences Auscultation: clear to auscultation bilaterally, no crackles, no rales, no rhonchi and no wheezes Cardio: Rate: regular rate Skin: General skin exam: normal color and no rashes or lesions noted Lesions: no lesions Rashes: no rashes Wounds: no wounds Neuro: General: patient oriented x3, gait normal, tone normal, moves all extremities and no meningeal signs Cognition (Neuro): normal cognition Speech: normal speech Gait exam (Neuro): Normal gait present Extrem: General: normal to inspection, full ROM, capillary refill normal and normal gait Psych: Appearance: grossly normal and well kempt Mental Status: mental status grossly normal Speech and movement: Normal speech and movement present and Clear speech present Affect: normal affect Attitude: cooperative Course Course Level of Care: Express Care Visit Vital Signs Vital signs: Vital Signs Temperature 97.0 F L 08/14/24 17:17 Pulse Rate 81 08/14/24 17:17 Respiratory Rate 16 08/14/24 17:17 Blood Pressure 135/80 08/14/24 17:17 Pulse Oximetry 99 08/14/24 17:17 Oxygen Delivery Room Air 08/14/24 17:17 Temperature 97.0 F L 08/14/24 17:17 Pulse Rate 81 08/14/24 17:17 Respiratory Rate 16 08/14/24 17:17 Blood Pressure 135/80 08/14/24 17:17 Pulse Oximetry 99 08/14/24 17:17 Oxygen Delivery Room Air 08/14/24 17:17 Reviewed MDM - URI/Sore Throat MDM Narrative Medical decision making narrative: Patient sitting comfortably in exam room. Nontoxic, vitals stable. Patient in no acute distress. Patient presents with URI symptoms, chest x-ray is negative. Patient appropriate for outpatient treatment of viral bronchitis with close follow-up Discharge instructions reviewed with patient, as well as provided in writing per nursing staff. The instructions also include specific and strict return/GO TO THE ER as well as f/u information. All questions have been answered, and the patient deny any further questions with discharge and discharge plan. Some parts of this dictation were generated by voice recognition software and may contain typographical and/or grammatical inaccuracies. Differential Diagnosis Differential diagnosis: Likely upper respiratory infection, otitis media, sinusitis, viral infection and bronchitis Lab Data Labs: Lab Results 08/14/24 Range/Units 17:25 POC Influenza A Ag Negative (Negative) POC Influenza B Ag Negative (Negative) POC SARS CoV-2 Ag Negative (Negative) POC Grp A Strep Screen Negative (Negative) Reviewed Imaging Data Radiologist's impression: EXAMINATION: XR chest 2V DATE: 08/14/2024 18:01 INDICATION: Cough. TECHNIQUE: Frontal and lateral views of the chest were obtained. COMPARISON: Chest 2 views 10/02/2023 FINDINGS: There is no pneumonia, pleural effusion, or pneumothorax. The heart size is normal. IMPRESSION: 1. No acute cardiopulmonary disease. Critical Care Time Critical Care Time Critical Care Time: No Discharge Plan Discharge Clinical Impression: Bronchitis Patient Disposition: Home, Self-Care Condition: Stable Instructions: Antibiotic Form, Acute Bronchitis (ED) Additional Instructions: Your rapid strep swab was negative today at [facility]. A throat culture will be sent to the laboratory for further testing. If the test is positive, you will receive a phone call within 48 hours and an appropriate antibiotic will be initiated at that time. Your rapid COVID test were negative Your rapid flu test was negative Your x-ray did not show signs of a pneumonia. Her symptoms are very consistent with bronchitis. It is very important to treat your symptoms. Drink plenty of water, Gatorade, Pedialyte, ice pops or Jell-O. -Alternate Tylenol and Motrin per package directions for fever or pain. You can alternate every 4 hours -Antihistamine medication such as Benadryl at night and Zyrtec/Claritin/Gaby during the day can help improve symptoms. -doing daily nasal irrigations can help relieve pressure your sinuses. Things like a Neti pot -Use Flonase twice a day for 5 days then daily to help reduce the inflammation and dry up your sinuses. -You can also use Mucinex. Be sure to drink plenty of water with this medication at least 8 ounces with every dose and it is important to drink 8 to 10 glasses of water per day. Water is a natural decongestant -Eat and drink things that are easy to swallow, like tea or soup, or popsicles. -Oral rinses such as: Salt water gargles and/or may use topical anesthetic (eg. Chloraseptic spray) or lozenges to relieve dryness or throat pain). -Frequent hand washing or hand auto apprentice mechanic is one of the best ways to prevent spread of infection. -Using a vaporizer or humidifier at night will also help thin secretions and help with coughing up phlegm. -Follow up with primary care provider in 7-10 days if condition is not improving - For new or worsening symptoms go directly to the nearest ER Patient Language: Dutch Prescriptions: New prednisone 20 mg tablet See Rx Instructions .Route .COMPLEX Qty: 9 0RF Rx Instructions: Take 40 mg daily for 3 days, 20 mg daily for 3 days No Action famotidine 20 mg tablet 20 mg BID atorvastatin 10 mg tablet 10 mg PO HS latanoprost 0.005 % drops 1 drp EACH EYE HS fluticasone propionate [Flonase Allergy Relief] 50 mcg/actuation spray,suspension 1 spray intranasal BID Qty: 16 0RF Rx Instructions: administer into each nostril cetirizine 10 mg tablet 10 mg PO DAILY Follow-up/Referrals: Wm,MD Tyrone [Primary Care Provider] - 1 Week ([facility] care follow up ) Stand Alone Forms: Work/School Release IP Time of Disposition: 18:22
== END 2024-08-14 18:25 | disposition home or self-care (01) ==
PROVIDERS: Emergency Provider Nurse Practitioner; PCP Family Medicine
DX: J40 Bronchitis, not specified as acute or chronic (principal); Z20.822 Contact with and (suspected) exposure to COVID-19; Z98.52 Vasectomy status
CPT/HCPCS: 71046; 87081; 87426; 87804; 87880; 99213; G0463

== ENCOUNTER 2024-11-29 09:04 | Outpatient (CLI) | payer MEDICARE, SELFPAY ==
--- NOTE | ~2024-11-29 | XR_ITS ---
AP view of the pelvis and AP and lateral views of the right hip Clinical history: Pain Findings: No acute fracture or dislocation is seen. Osseous alignment is anatomic. Bilateral hip and SI joint spaces are preserved. Soft tissues are unremarkable. Impression: No significant abnormality is seen. Reviewed, dictated and finalized at [facility]. Impression: No significant abnormality is seen.
--- NOTE | ~2024-11-29 | XR_ITS ---
Lumbosacral Spine: AP, oblique, and lateral views Clinical History: Pain Findings: The normal lordotic curve is maintained. The vertebral bodies and posterior elements are i ntact. There are mild degenerative disc changes throughout the lumbar spine. There is moderate to adv anced facet arthropathy at the lower lumbar spine. The sacroiliac joints are normally outlined. Impression: Moderate degenerative spondylosis overall, as detailed above. Reviewed, dictated and finalized at location M. Impression: Moderate degenerative spondylosis overall, as detailed above.
--- NOTE | ~2024-11-29 | XR_ITS ---
AP and oblique views of the SI joints HISTORY: Back pain FINDINGS: No fracture or dislocation seen. SI joints are unremarkable. Visualized hip joints are unre markable. No soft tissue abnormality seen. IMPRESSION: Normal exam. Reviewed, dictated and finalized at location . IMPRESSION: Normal exam.
--- OUTSIDE RECORDS SUMMARY | 2024-11-29 09:36 | XMS_ITS | Data Portability ---
Author Organization [place] - [facility] [employer], Main Office Address [address] [place] [address] Care Team Providers Care Sewer Line Photo Inspector Name Role Phone TYRONE BURK Primary Care Provider [phone] Assessment Encounter Date Assessment Date Assessment LastModified by Organization Details LastModified Time 09/13/2024 09/13/2024 68 yo M with - WELL ADULT VISIT - B/L EAR WAX - HTG, uncontrolled - HLD - ELEVATED BP, stable - GERD - SEASONAL ALLERGIC RHINITIS - B/L HEARING LOSS, chronic Annual labs: 09/14/23. CXR: 04/08/23. HbA1c, H pylori: 03/12/23. D/w pt in detail about his conditions, recent labs & imagines and further plan of care. Will do routine labs. Meds as directed. Diet and exercise explained in detail. BP diary education given and call us if any concerns. Cont f/u with ENT at [facility] as per schedule. Cont f/u with Ophtho as per schedule. Cont f/u with GI as per schedule. HM: Colonoscopy - 06/20, normal as per pt. Cont f/u with GI (5 yrs) as per schedule. Flu - Pt declined. Tdap, Pneumo, Shingrix - At pharmacy/HD. F/u in 2-3 weeks. B/l ear flushing on next visit. Annual labs in 09/24. Not available 09/13/2024 11:23:06 10/04/2024 10/04/2024 68 yo M with - B/L EAR WAX; s/p flushing today - PRE-DM, new - HYPERBILIRUBINE VLADIMIR, new - ELEVATED BP, stable - HLD - HTG - GERD - SEASONAL ALLERGIC RHINITIS - B/L HEARING LOSS, chronic HbA1c: 6.0(09/14/24) Annual labs: 09/14/24. Annual labs: 09/14/23. CXR: 04/08/23. HbA1c, H pylori: 03/12/23. D/w pt in detail about his conditions, recent labs & imagines and further plan of care. Verbal consent taken for b/l ear flushing. Pt did well. Pt declined for any new med. Meds as directed. Diet and exercise explained in detail. BP diary education given and call us if any concerns. Cont f/u with ENT at [facility] as per schedule. Cont f/u with Ophtho as per schedule. Cont f/u with GI as per schedule. HM: Colonoscopy - 06/20, normal as per pt. Cont f/u with GI (5 yrs) as per schedule. Flu - Pt declined. Tdap, Pneumo, Shingrix - At pharmacy/HD. F/u in 3 months. A1c, CMP in 01/21. Annual labs in 09/24. Not available 10/04/2024 10:38:43 Plan of Treatment Reminders Order Date Submit Date Provider Last Modified By Organization Details Last Modified Time Details Appointments Follow Up 2024 09:30A M Tyrone Burk MD Not available Not available Not available Any 15 2024 09:00A Mable Burk MD Not available Not available Not available Lab CMP, serum or plasma 2024 025 [facility] (Lab), [address] [place], [address], 10/04/2024 10:32:37 glycohemo globin, total, blood 2024 025 [email or web address] [facility] (Lab), [address] [place], [address], 10/04/2024 10:32:37 CBC w/ auto diff 2024 025 [facility] (Lab), [address] [place], [address], 09/14/2024 16:21:22 CMP, serum or plasma [address] (Lab), [address] [place], [address], 09/14/2024 16:20:54 urinalysi s complete, reflex culture [address] (Lab), [address] [place], [address], 09/14/2024 16:19:38 lipid panel, serum [address] (Lab), [address] [place], [address], 09/14/2024 16:20:27 TSH, serum or plasma [address] (Lab), [address] [place], [address], 09/14/2024 16:20:03 HbA1c (hemoglob in A1c), blood [address] (Lab), [address] [place], [address], 09/14/2024 16:19:08 PSA, serum or plasma [address] (Lab), [address] [place], [address], 09/14/2024 16:18:48 rapid strep group A, throat 2023 024 [place] [facility], [address] [place] [address], [phone], 08/11/2024 11:19:10 Referral None recorded. Procedures None recorded. Surgeries None recorded. Imaging XR, lumbosacr al spine, 4 or more view 2024 025 [email or web address] [facility], [address] [address], [place], [address], 11/28/2024 11:16:54 XR, sacroilia c joint(s), 3 or more view 2024 025 [email or web address] [facility], [address] [address], [place], [address], 11/28/2024 11:16:54 XR, hip, unilatera l, 2 or 3 view - With Pelvis [email or web address] [facility], [address], [address], 11/28/2024 11:16:54 Medication Orders cyclobenz aprine 10 mg tablet 2024 025 [facility] #[facility], [address], [place], [id number], 11/28/2024 11:12:29 diclofena c sodium 75 mg tablet,de layed release 2024 025 [facility] #21272, [address], [place], [id number], 11/28/2024 11:12:27 fenofibra te 54 mg tablet 2024 025 [email or web address] [facility]/Pharmacy #2510, [address] [place], [address], 11/01/2024 10:24:16 atorvasta tin 10 mg tablet 2024 025 [facility]/Pharmacy #2510, [address] [place], [address], 10/04/2024 10:32:41 fenofibra te 54 mg tablet 2024 025 [facility]/Pharmacy #2510, [address] [place], [address], 09/13/2024 11:17:13 Debrox 6.5 % ear drops 2024 025 AMENIA [facility] #[facility]64, [address], [place], [id number], 09/13/2024 11:19:31 atorvasta tin 10 mg tablet 2024 025 [facility]/Pharmacy #2510, [address] [place], [address], 09/13/2024 11:17:12 Medrol (Christian) 4 mg tablets in a dose pack 2023 024 [email or web address] [facility]/Pharmacy #2510, [address] [place], [address], 09/13/2024 11:16:47 Patient TargetsNo targets recorded. Patient Instructions Encounter Date Encounter Id Patient Instructions Last Modified By Organization Details Last Modified Time 09/13/2024 [id number] dash diet: care instructions [email or web address] Not available 09/13/2024 11:17:09 learning about high blood pressure [email or web address] Not available 09/13/2024 11:17:08 high cholesterol : care instructions Not available 09/13/2024 11:17:08 10/04/2024 [id number] dash diet: care instructions [email or web address] Not available 10/04/2024 10:32:37 learning about high blood pressure [email or web address] Not available 10/04/2024 10:32:37 prediabetes: car e instructions [email or web address] Not available 10/04/2024 10:40:46 high cholesterol : care instructions [email or web address] Not available 10/04/2024 10:32:37 Reason for Referral None Reported. Results Created Date Observation Date Name Description Value Unit Range Abnormal Flag Note LastModifiedBy Organization Detail LastModifiedTime 08/11/20 24 08/11/2024 rapid strep group A, throa t STREP A negati ve Not Available [id number] [address] [place], [address], 08/11/2024 11:07:19 09/14/19 25 09/14/2024 CBC/C OMPLE TE BLD COUNT W/DIF F white blood cells 3.8 x10'3 /uL 4.2-10 .8 low Not Available [facility] (Lab) [address] [place], [address], 09/14/2024 20:23:49 09/14/19 25 09/14/2024 CBC/C OMPLE TE BLD COUNT W/DIF F red blood cells 4.94 x10'6 /uL 4.10-5 .80 Not Available [facility] (Lab) [address] [place], [address], 09/14/2024 20:23:49 09/14/19 25 09/14/2024 CBC/C OMPLE TE BLD COUNT W/DIF F hemoglobin 15.9 g/dL 13.2-1 7.0 Not Available [facility] (Lab) [address] [place], [address], 09/14/2024 20:23:49 09/14/19 25 09/14/2024 CBC/C OMPLE TE BLD COUNT W/DIF F hematocrit 46.5 % 39.3-5 0.0 Not Available [facility] (Lab) [address] [place], [address], 09/14/2024 20:23:49 09/14/19 25 09/14/2024 CBC/C OMPLE TE BLD COUNT W/DIF F mean red cell volume 94.1 fL 80.0-9 7.0 Not Available [facility] (Lab) [address] [place], [address], 09/14/2024 20:23:49 09/14/19 25 09/14/2024 CBC/C OMPLE TE BLD COUNT W/DIF F mean red cell hemoglobin 32.2 pg 27.0-3 3.0 Not Available [facility] (Lab) [address] [place], [address], 09/14/2024 20:23:49 09/14/19 25 09/14/2024 CBC/C OMPLE TE BLD COUNT W/DIF F mean RBC HGB concentratio n 34.2 g/dL 31.0-3 6.0 Not Available [facility] (Lab) [address] [place], [address], 09/14/2024 20:23:49 09/14/19 25 09/14/2024 CBC/C OMPLE TE BLD COUNT W/DIF F red cell distribution width 12.1 % 11.8-1 5.5 Not Available [facility] (Lab) [address] [place], [address], 09/14/2024 20:23:49 09/14/19 25 09/14/2024 CBC/C OMPLE TE BLD COUNT W/DIF F platelets 228 x10'3 /uL 150-40 0 Not Available [facility] (Lab) [address] [place], [address], 09/14/2024 20:23:49 09/14/19 25 09/14/2024 CBC/C OMPLE TE BLD COUNT W/DIF F mean platelet volume 10.5 fL 9.0-12 .4 Not Available [facility] (Lab) [address] [place], [address], 09/14/2024 20:23:49 09/14/19 25 09/14/2024 CBC/C OMPLE TE BLD COUNT W/DIF F neutrophils 44.6 % 39.0-7 2.0 Not Available [facility] (Lab) [address] [place], [address], 09/14/2024 20:23:49 09/14/19 25 09/14/2024 CBC/C OMPLE TE BLD COUNT W/DIF F lymphocytes 38.5 % 16.0-4 7.0 Not Available [facility] (Lab) [address] [place], [address], 09/14/2024 20:23:49 09/14/19 25 09/14/2024 CBC/C OMPLE TE BLD COUNT W/DIF F monocytes 11.2 % 5.0-12 .0 Not Available [facility] (Lab) [address] [place], [address], 09/14/2024 20:23:49 09/14/19 25 09/14/2024 CBC/C OMPLE TE BLD COUNT W/DIF F eosinophils 4.9 % 1.0-7. 0 Not Available [facility] (Lab) [address] [place], [address], 09/14/2024 20:23:49 09/14/19 25 09/14/2024 CBC/C OMPLE TE BLD COUNT W/DIF F basophils 0.5 % 0.0-2. 0 Not Available [facility] (Lab) [address] [place], [address], 09/14/2024 20:23:49 09/14/19 25 09/14/2024 CBC/C OMPLE TE BLD COUNT W/DIF F immature granulocytes 0.3 % 0.00-0 .50 Not Available [facility] (Lab) [address] [place], [address], 09/14/2024 20:23:49 09/14/19 25 09/14/2024 CBC/C OMPLE TE BLD COUNT W/DIF F neutrophils, absolute count 1.71 x10'3 /uL 1.5-8. 0 Not Available [facility] (Lab) [address] [place], [address], 09/14/2024 20:23:49 09/14/19 25 09/14/2024 CBC/C OMPLE TE BLD COUNT W/DIF F lymphocytes, absolute count 1.48 x10'3 /uL 1.07-3 .43 Not Available [facility] (Lab) [address] [place], [address], 09/14/2024 20:23:49 09/14/19 25 09/14/2024 CBC/C OMPLE TE BLD COUNT W/DIF F monocytes, absolute count 0.43 x10'3 /uL 0.29-0 .99 Not Available [facility] (Lab) [address] [place], [address], 09/14/2024 20:23:49 09/14/19 25 09/14/2024 CBC/C OMPLE TE BLD COUNT W/DIF F eosinophils, absolute count 0.19 x10'3 /uL 0.02-0 .53 Not Available [facility] (Lab) [address] [place], [address], 09/14/2024 20:23:49 09/14/19 25 09/14/2024 CBC/C OMPLE TE BLD COUNT W/DIF F basophils, absolute count 0.02 x10'3 /uL 0.01-0 .08 Not Available [facility] (Lab) [address] [place], [address], 09/14/2024 20:23:49 09/14/19 25 09/14/2024 CBC/C OMPLE TE BLD COUNT W/DIF F immature granulocytes ,absolute 0.01 x10'3 /uL 0.00-0 .05 Not Available [facility] (Lab) [address] [place], [address], 09/14/2024 20:23:49 09/14/19 25 09/14/2024 CBC/C OMPLE TE BLD COUNT W/DIF F nucleated red blood cells 0.0 % -0 Not Available [facility] (Lab) [address] [place], [address], 09/14/2024 20:23:49 09/14/19 25 09/14/2024 CBC/C OMPLE TE BLD COUNT W/DIF F NRBC# 0.00 x10'3 /uL Not Available [facility] (Lab) [address] [place], [address], 09/14/2024 20:23:49 09/14/19 25 09/14/2024 URINA LYSIS COMPL ETE/I RIS W/RFX color YELLOW Not Available [facility] (Lab) [address] [place], [address], 09/14/2024 20:27:11 09/14/19 25 09/14/2024 URINA LYSIS COMPL ETE/I RIS W/RFX appear CLEAR Not Available [facility] (Lab) [address] [place], [address], 09/14/2024 20:27:11 09/14/19 25 09/14/2024 URINA LYSIS COMPL ETE/I RIS W/RFX specific gravity 1.021 1.001- 1.030 Not Available [facility] (Lab) [address] [place], [address], 09/14/2024 20:27:11 09/14/19 25 09/14/2024 URINA LYSIS COMPL ETE/I RIS W/RFX pH 6.5 pH_un its 5.0-9. 0 Not Available [facility] (Lab) [address] [place], [address], 09/14/2024 20:27:11 09/14/19 25 09/14/2024 URINA LYSIS COMPL ETE/I RIS W/RFX leukocytes NEGATI VE koko/u L negati ve- Not Available [facility] (Lab) [address] [place], [address], 09/14/2024 20:27:11 09/14/19 25 09/14/2024 URINA LYSIS COMPL ETE/I RIS W/RFX nitrite NEGATI VE negati ve- Not Available [facility] (Lab) [address] [place], [address], 09/14/2024 20:27:11 09/14/19 25 09/14/2024 URINA LYSIS COMPL ETE/I RIS W/RFX protein NEGATI VE mg/dL negati ve- Not Available [facility] (Lab) [address] [place], [address], 09/14/2024 20:27:11 09/14/19 25 09/14/2024 URINA LYSIS COMPL ETE/I RIS W/RFX glucose NORMAL mg/dL normal - Not Available [facility] (Lab) [address] [place], [address], 09/14/2024 20:27:11 09/14/19 25 09/14/2024 URINA LYSIS COMPL ETE/I RIS W/RFX ketones NEGATI VE mg/dL negati ve- Not Available [facility] (Lab) [address] [place], [address], 09/14/2024 20:27:11 09/14/19 25 09/14/2024 URINA LYSIS COMPL ETE/I RIS W/RFX urobilinogen NORMAL mg/dL normal - Not Available [facility] (Lab) [address] [place], [address], 09/14/2024 20:27:11 09/14/19 25 09/14/2024 URINA LYSIS COMPL ETE/I RIS W/RFX bilirubin NEGATI VE mg/dL negati ve- Not Available [facility] (Lab) [address] [place], [address], 09/14/2024 20:27:11 09/14/19 25 09/14/2024 URINA LYSIS COMPL ETE/I RIS W/RFX blood NEGATI VE mg/dL negati ve- Not Available [facility] (Lab) [address] [place], [address], 09/14/2024 20:27:11 09/14/19 25 09/14/2024 URINA LYSIS COMPL ETE/I RIS W/RFX white blood cells 0-8 /i??h pfi?? 0-8 Not Available [facility] (Lab) [address] [place], [address], 09/14/2024 20:27:11 09/14/19 25 09/14/2024 URINA LYSIS COMPL ETE/I RIS W/RFX red blood cells 0-4 /i??h pfi?? 0-4 Not Available [facility] (Lab) [address] [place], [address], 09/14/2024 20:27:11 09/14/19 25 09/14/2024 URINA LYSIS COMPL ETE/I RIS W/RFX bacteria NONE Not Available [facility] (Lab) [address] [place], [address], 09/14/2024 20:27:11 09/14/19 25 09/14/2024 URINA LYSIS COMPL ETE/I RIS W/RFX mucous OCCASI ONAL /i??l pfi?? abnormal Not Available [facility] (Lab) [address] [place], [address], 09/14/2024 20:27:11 09/14/19 25 09/14/2024 URINA LYSIS COMPL ETE/I RIS W/RFX squamous epithelial OCCASI ONAL /i??l pfi?? abnormal Not Available [facility] (Lab) [address] [place], [address], 09/14/2024 20:27:11 09/14/19 25 09/14/2024 COMPR EHENS EMILE METAB OLIC PANEL sodium 140 mmol/ L 137-14 5 Not Available [facility] (Lab) [address] [place], [address], 09/14/2024 20:52:35 09/14/19 25 09/14/2024 COMPR EHENS EMILE METAB OLIC PANEL potassium 5.1 mmol/ L 3.5-5. 1 Not Available [facility] (Lab) [address] [place], [address], 09/14/2024 20:52:35 09/14/19 25 09/14/2024 COMPR EHENS EMILE METAB OLIC PANEL chloride 104 mmol/ L 98-107 Not Available [facility] (Lab) [address] [place], [address], 09/14/2024 20:52:35 09/14/19 25 09/14/2024 COMPR EHENS EMILE METAB OLIC PANEL carbon dioxide 29 mmol/ L 22-30 Not Available [facility] (Lab) [address] [place], [address], 09/14/2024 20:52:35 09/14/19 25 09/14/2024 COMPR EHENS EMILE METAB OLIC PANEL anion gap 12.1 mmol/ L 14-22 low Not Available [facility] (Lab) [address] [place], [address], 09/14/2024 20:52:35 09/14/19 25 09/14/2024 COMPR EHENS EMILE METAB OLIC PANEL glucose 92 mg/dL 70-99 Not Available [facility] (Lab) [address] [place], [address], 09/14/2024 20:52:35 09/14/19 25 09/14/2024 COMPR EHENS EMILE METAB OLIC PANEL BUN 19 mg/dL 8-19 Not Available [facility] (Lab) [address] [place], [address], 09/14/2024 20:52:35 09/14/19 25 09/14/2024 COMPR EHENS EMILE METAB OLIC PANEL creatinine 1.21 mg/dL 0.66-1 .25 Not Available [facility] (Lab) [address] [place], [address], 09/14/2024 20:52:35 09/14/19 25 09/14/2024 COMPR EHENS EMILE METAB OLIC PANEL GFR 59 Refer ence Range : [place] ge GFR Healt hy Adult : >60 mL/mi n/1.7 3 m2 Chron ic Kidne y Disea se: 15-60 mL/mi n/1.7 3 m2 Kidne y Failu re: <15/m L/min /1.73 m2 www.n iddk. nih.g ov The MDRD study equat ion has not been valid ated in child rylie <18 years of age; pregn ant women ; the elder ly >85 years of age; or in some racia l or ethni c subgr oups, such as Hispa nics. Outsi de the valid ated jacy eters , estim ated GFR is less accur ate, requi ring clini laci judgm ent on a case- by-ca se basis . Clini laci inter preta tion for other races and ages must be made by the clini dillon. The MDRD study equat ion has not been valid ated for the evalu ation of serum creat inine relat ed to nutri ger l statu s or medic ation usage . For perso ns <18 years of age, a pedia tric GFR calcu lator is avail able on the F websi te: https ://dmitry w.kid temitope.o rg/pr shannoness ional s/kdo qi/gf r_cal culat or Not Available [facility] (Lab) [address] [place], [address], 09/14/2024 20:52:35 09/14/19 25 09/14/2024 COMPR EHENS EMILE METAB OLIC PANEL alkaline phosphatase 62 U/L 38-126 Not Available [facility] (Lab) [address] [place], [address], 09/14/2024 20:52:35 09/14/19 25 09/14/2024 COMPR EHENS EMILE METAB OLIC PANEL alanine aminotransfe rase 32 U/L 0-50 Not Available [facility] (Lab) [address] [place], [address], 09/14/2024 20:52:35 09/14/19 25 09/14/2024 COMPR EHENS EMILE METAB OLIC PANEL aspartate aminotransfe rase 41 U/L 15-46 Not Available [facility] (Lab) [address] [place], [address], 09/14/2024 20:52:35 09/14/19 25 09/14/2024 COMPR EHENS EMILE METAB OLIC PANEL bilirubin, total 1.60 mg/dL 0.20-1 .30 high Not Available [facility] (Lab) [address] [place], [address], 09/14/2024 20:52:35 09/14/19 25 09/14/2024 COMPR EHENS EMILE METAB OLIC PANEL calcium 9.6 mg/dL 8.4-10 .2 Not Available [facility] (Lab) [address] [place], [address], 09/14/2024 20:52:35 09/14/19 25 09/14/2024 COMPR EHENS EMILE METAB OLIC PANEL total protein 7.4 g/dL 6.3-8. 2 Not Available [facility] (Lab) [address] [place], [address], 09/14/2024 20:52:35 09/14/19 25 09/14/2024 COMPR EHENS EMILE METAB OLIC PANEL albumin 4.8 g/dL 3.0-4. 4 high Not Available [facility] (Lab) [address] [place], [address], 09/14/2024 20:52:35 09/14/19 25 09/14/2024 COMPR EHENS EMILE METAB OLIC PANEL globulin 2.6 g/dL 2.6-4. 2 Not Available [facility] (Lab) [address] [place], [address], 09/14/2024 20:52:35 09/14/19 25 09/14/2024 COMPR EHENS EMILE METAB OLIC PANEL A/G ratio 1.8 ratio 1.0-2. 0 Not Available [facility] (Lab) [address] [place], [address], 09/14/2024 20:52:35 09/14/19 25 09/14/2024 LIPID PANEL cholesterol 116 mg/dL 140-19 9 low NIH PADMINI NSUS RECOM MENDA TION FOR IGNACIO STERO L: ADULT CHILD LOW RISK: <200 <170 BORDE RLINE : <200- 239 ----- HIGH RISK: >240 >200 Not Available [facility] (Lab) [address] [place], [address], 09/14/2024 20:52:37 09/14/19 25 09/14/2024 LIPID PANEL triglyceride s 67 mg/dL 0-150 NIH PADMINI NSUS REPOR T RECOM MENDA TION FOR TRIGL YCERI ASUNCION: ADULT CHILD LOW RISK: <150 ----- BODER LINE: 150-1 99 ----- HIGH RISK: >200 ----- Not Available [facility] (Lab) [address] [place], [address], 09/14/2024 20:52:37 09/14/19 25 09/14/2024 LIPID PANEL HDL cholesterol 34 mg/dL 40- low Not Available [facility] (Lab) [address] [place], [address], 09/14/2024 20:52:37 09/14/19 25 09/14/2024 LIPID PANEL LDL cholesterol, calculated 69 mg/dL 0-130 NIH PADMINI NSUS REPOR T RECOM MENDA TIONS FOR LDL: ADULT CHILD LOW RISK <130 <110 (OPTI MAL LDL) <100 ----- BORDE RLINE : 130-1 59 ----- HIGH RISK: >160 >130 A TRIGL YCERI DE RESUL T >400 INVAL IDATE S THE CALCU LATIO N FOR LDL FRACT IONAT ION - THE LDL RESUL T WILL NOT BE REPOR ABBY. Not Available [facility] (Lab) [address] [place], [address], 09/14/2024 20:52:37 09/14/19 25 09/14/2024 TSH W/REF GERTRUDIS FT4 TSH with reflex free T4 1.160 uIU/m L 0.465- 4.680 Not Available [facility] (Lab) [address] [place], [address], 09/14/2024 21:14:27 09/14/19 25 09/14/2024 HEMOG LOBIN A1C HA1C 6.0 % 4.0-6. 0 Diabe igor Scree kyung Crite nathen: <5.7% Consi stent with absen ce of diabe igor 5.7-6 .4% Consi stent with incre ased risk for diabe igor (pred iabet es) >OR=6 .5% Consi stent with diabe igor REFER ENCE: Diabe igor Care 2016, 39([place] ppl.1 ):s13 -s22 Not Available [facility] (Lab) [address] [place], [address], 09/14/2024 21:51:29 09/14/19 25 09/15/2024 PSA SCREE N PSA medicare screen 1.40 NG/mL 0.00-4 .00 Not Available [facility] (Lab) [address] [place], [address], 09/15/2024 10:47:08 08/14/20 24 08/14/2024 XR, chest , 2 view No observ ation record ed. [email or web address] [facility] [address], [place], [address], 09/13/2024 11:14:58 Result Notes None recorded. Problems Name Problem SNOMED Code Status Onset Date Resolution Date Notes Provider Name and Address Organization Details Recorded Time Elevated blood-press ure reading without diagnosis of hypertensio n 830179838 Active 2022 Tyrone Burk MD [address], [place], [address], [employer] 3 12:01:26 Gastroesoph ageal reflux disease without esophagitis 662178523 Active 2022 Tyrone Burk MD [address], [place], [address], [employer] 3 12:03:18 Bronchitis 19633213 Active 2022 Tyrone Burk MD [address], [place], [address], [employer] 3 12:28:15 Sinusitis 75577222 Active 2022 Tyrone Burk MD [address], [place], [address], [employer] 3 17:24:53 Cough 96468715 Active 2022 Tyrone Burk MD [address], [place], [address], [employer] 3 17:25:21 Seasonal allergic rhinitis 619107670 Active 2022 Tyrone Burk MD [address], [place], [address], [employer] 3 17:27:11 Sensorineur al hearing loss of bilateral ears 199346630 Active 2023 Tyrone Burk MD [address], [place], [address], [employer] 4 12:34:38 Hyperlipide vladimir 01382983 Active 2023 Tyrone Burk MD [address], [place], [address], [employer] 4 11:09:32 Hypertrigly ceridemia 810155618 Active 2023 Tyrone Burk MD [address], [place], [address], [place] [facility] [employer] 4 14:04:27 Eruption 133725597 Active 2023 Tyrone Burk MD [address], [place], [address], [employer] 4 16:37:07 Tinea corporis 32769162 Active 2023 Tyrone Burk MD [address], [place], [address], [employer] 4 16:37:25 Sore throat 708814642 Active 2023 TASIA Sparrow [address], [place], [address], [employer] 4 11:04:30 Chronic cough 05656972 Active 2023 TASIA Sparrow [address], [place], [address], [employer] 4 11:07:28 Acute sinusitis 94908783 Active 2023 TASIA Sparrow [address], [place], [address], [employer] 4 09:11:16 Impacted cerumen of bilateral ears 0044823064327 108 Active 2024 Tyrone Burk MD [address], [place], [address], [place] [facility] [employer] 5 11:18:51 Prediabetes 411502685 Active 2024 Tyrone Burk MD [address], [place], [address], [employer] [facility] 5 10:31:18 Hyperbiliru binemia 24282796 Active 2024 Tyrone Burk MD [address], [place], [address], [employer] Organization [facility] 5 10:31:46 Chronic low back pain 791109726 Active 2024 Tyrone Burk MD [address], [address], [place], [address], [employer] [employer] [facility] 5 11:08:39 Pain in right hip joint 6149766195188 02 Active 2024 Tyrone Burk MD [address], [address], [place], [address], Trup[facility]ion [facility] [employer] 11:09:06 Problem Notes None recorded. Procedures Surgical History Date Name Laterality Status Provider Name and Address Organization Details Recorded Time 5 Ear Irrigation completed Tyrone Burk MD [address], [address], [place], [address], [facility] [employer] [facility] [employer] [facility] 10/04/2024 10:35:45 2 colonoscopy completed Kierra Alberts RN [facility] [employer] [facility] 03/10/2023 11:49:11 5 Carpal tunnel surgery completed Kierra Alberts RN [facility] [employer] [facility] 03/10/2023 11:45:17 4 Carpal tunnel surgery completed Kierra Alberts RN [facility] [employer] [facility] 03/10/2023 11:45:01 0 vasectomy completed Kierra Alberts RN [facility] [employer] [facility] 03/10/2023 11:44:13 Imaging Results Imaging Date Name Status LastModified by Organiz [facility] Details LastModified Time 08/14/2024 XR, chest, 2 view completed [facility] [place] [address], [place], [address], 09/13/2024 11:14:58 Procedure Notes None recorded. Medical Equipment None Reported. Allergies No known drug allergies Medications Name Sig Start Date Stop Date Status Note LastModified by Organization Details LastModified Time cyclobenzap rine 10 mg tablet Take 1 tablet every 12 hours by oral route as needed for 30 days. 2024 active Not Available Not Available Not Avai lable amoxicillin 500 mg capsule TAKE 1 CAPSULE BY MOUTH 3 TIMES A DAY UNTIL FINISHED 03/10 completed Not Available Not Available Not Available latanoprost 0.005 % eye drops INSTILL 1 DROP INTO BOTH EYES AT BEDTIME active Not Available Not Available No t Available prednisone 10 mg tablet TAKE 1 TABLET BY MOUTH EVERY DAY DIRECTED FOR 7 DAYS 04/07 completed Not Available Not Available Not Available cetirizine 10 mg tablet TAKE 1 TABLET BY MOUTH EVERY DAY 04/07 completed Not Available Not Available Not Available atorvastati n 10 mg tablet Take 1 tablet every day by oral route at bedtime for 90 days. 2024 active Not Available Not Available Not Avai lable azithromyci n 250 mg tablet TAKE 2 TABLETS BY MOUTH TODAY, THEN TAKE 1 TABLET DAILY FOR 4 DAYS 04/07 completed Not Available Not Available Not Available ibuprofen 800 mg tablet 03/10 completed Not Available Not Available Not Available benzonatate 200 mg capsule TAKE 1 CAPSULE BY MOUTH EVERY 8 HOURS NEEDED FOR 10 DAYS 09/13 completed Not Available Not Available Not Available Medrol (Christian) 4 mg tablets in a dose pack Take as directed 09/13 completed Not Available Not Available Not Available prednisone 20 mg tablet TAKE 3 TABLETS BY MOUTH DAILY FOR 3 DAYS, 2 TABS DAILY FOR 2 DAYS, 1 TAB DAILY FOR 2 DAYS 08/11 completed Not Available Not Available Not Available Debrox 6.5 % ear drops INSTILL 4 DROPS INTO AFFECTED EAR(S) BY OTIC ROUTE 2 TIMES PER DAY active Not Available Not Available No t Available metronidazo le 500 mg tablet TAKE 1 TAB RIGHT AWAY, THEN 1 TAB TWICE A DAY UNTIL FINISHED 03/10 completed Not Available Not Available Not Available peg-electro lyte solution 420 gram oral solution TAKE 4,000 ML'S BY MOUTH ONCE FOR 1 DOSE 03/10 completed Not Available Not Available Not Available carvedilol 3.125 mg tablet 03/10 completed Not Available Not Available Not Available meloxicam 7.5 mg tablet 03/10 completed Not Available Not Available Not Available amoxicillin 875 mg tablet 875 MG ORALLY EVERY 12 HOURS FOR 10 DAYS 01/26 completed Not Available Not Available Not Available famotidine 20 mg tablet Take 1 tablet twice a day by oral route as directed for 90 days. 08/11 completed Not Available Not Available Not Available clotrimazol e-betametha sone 1 %-0.05 % topical cream APPLY TO AFFECTED AND SURROUNDI NG AREA OF SKIN IN THE MORNING AND EVENING X 2 WEEKS active Not Available Not Available No t Available diclofenac sodium 75 mg tablet,roro yed release Take 1 tablet every 12 hours by oral route as needed for 30 days. 2024 active Not Available Not Available Not Avai lable ranitidine 150 mg capsule 01/18 completed Not Available Not Available Not Available azelastine 137 mcg (0.1 %) nasal spray ADMINISTE R 1 SPRAY IN EACH NOSTRIL TWICE A DAY active Not Available Not Available No t Available albuterol sulfate HFA 90 mcg/actuati on aerosol inhaler INHALE 2 PUFFS EVERY 4 HOURS FOR 15 DAYS active Not Available Not Available No t Available fluticasone propionate 50 mcg/actuati on nasal spray,suspe nsion 1 SPRAY INTRANASA LLY TWICE A DAY ADMINISTE R INTO EACH NOSTRIL active Not Available Not Available No t Available amoxicillin 875 mg-potassiu m clavulanate 125 mg tablet Take 1 tablet every 12 hours by oral route as directed for 7 days. 09/13 completed Not Available Not Available Not Available amoxicillin 500 mg-potassiu m clavulanate 125 mg tablet TAKE 1 TABLET BY MOUTH EVERY 8 HOURS 08/11 completed Not Available Not Available Not Available cyclobenzap rine 5 mg tablet 01/18 completed Not Available Not Available Not Available levocetiriz ine 5 mg tablet TAKE 1 TABLET BY MOUTH EVERY DAY DIRECTED 2023 active Not Available Not Available Not Avai lable fenofibrate 54 mg tablet TAKE 1 TABLET BY MOUTH EVERY DAY IN THE MORNING 2024 active Not Available Not Available Not Avai lable Vitals Date Recorded Body height Body mass index (BMI) Body weight Body temperature Heart rate Respiratory rate Oxygen saturation Oxygen saturation in Arterial blood by Pulse oximetry Pain severity - 0-10 verbal numeric rating [Score] - Reported Systolic blood pressure Diastolic blood pressure Provider Name and Address Organization Details Last Updated DateTime 4 175.26 cm 25 kg/m2 27736.2 6 g 97.7 [degF] 49 /min 20 /min 96 % 96 % 1 140 mm[Hg] 78 mm[Hg] Kierra Alberts RN [facility] [employer] [facility] 4 10:51:15 Date Recorded Body height Body mass index (BMI) Body weight Oxygen saturation Oxygen saturation in Arterial blood by Pulse oximetry Heart rate Systolic blood pressure Diastolic blood pressure Provider Name and Address Organization Details Last Updated DateTime 5 175.26 cm 25 kg/m2 87882.1 6 g 95 % 95 % 61 /min 142 mm[Hg] 76 mm[Hg] Sheila Brown RN [facility] [employer] 5 11:12:13 Date Recorded Body temperature Provider Name a ma Address Organization Details Last Updated DateTime 09/13/2024 97.3 [degF] Mable Saeed [address] [place] [address], [phone], [facility] [employer] 09/13/2024 11:29:22 Date Recorded Body height Body mass index (BMI) Body weight Body temperature Oxygen saturation Oxygen saturation in Arterial blood by Pulse oximetry Heart rate Systolic blood pressure Diastolic blood pressure Provider Name and Address Organization Details Last Updated DateTime 5 175.26 cm 24.7 kg/m2 40522.7 3 g 97.4 [degF] 97 % 97 % 70 /min 140 mm[Hg] 72 mm[Hg] Sheila Brown RN [facility] [employer] [facility] 5 10:26:30 Date Recorded Body height Body mass index (BMI) Body weight Body temperature Oxygen saturation Oxygen saturation in Arterial blood by Pulse oximetry Heart rate Systolic blood pressure Diastolic blood pressure Provider Name and Address Organization Details Last Updated DateTime 5 175.26 cm 24.4 kg/m2 94371.4 9 g 97.2 [degF] 98 % 98 % 68 /min 140 mm[Hg] 72 mm[Hg] Sheila Brown RN [facility] [employer] [facility] 11:04:41 Social History Question Answer Notes LastModified by Organization Details LastModified Time Tobacco Smoking Status Never Smoker Kierra Alberts RN [facility], [facility] [employer] [facility] 03/10/2023 11:46:10 Do You Have An Advance Directive? No Information not available 03/10/2023 What Is Your Level Of Alcohol Consumption? None Information not available 03/10/2023 Are You Blind Or Do You Have Difficulty Seeing? No Information not available 03/10/2023 Is Blood Transfusion Acceptable In An Emergency? Yes Information not available 03/10/2023 What Is Your Level Of Caffeine Consumption? Moderate Soda-coke, And [place] Information not available 09/13/2024 In The 14 Days Before Symptom Onset, Have You Had Close Contact With A Laboratory-confi rmed COVID-19 While That Case Was Ill? No Information not available 08/11/2024 In The 14 Days Before Symptom Onset, Have You Had Close Contact With A Person Who Is Under Investigation For COVID-19 While That Person Was Ill? No Information not available 08/11/2024 Are You Currently Employed? No Information not available 03/10/2023 Are You Deaf Or Do You Have Serious Difficulty Hearing? Yes Hearing Aids Information not available 03/10/2023 What Type Of Diet Are You Following? REGULAR Information not available 03/10/2023 Have There Been Any Changes To Your Family Or Social Situation? No Information not available 03/10/2023 Are There Any Guns Present In Your Home? Yes Information not available 03/10/2023 Do You Use Insect Repellent Routinely? No Information not available 03/10/2023 Where Do You Live? SingleLevelHouse Information not available 03/10/2023 Do You Have A Medical Power Of Marine Design Engineer? No Information not available 03/10/2023 Do You Have Any Pets? Yes Information not available 03/10/2023 What Is Your Relationship Status? Information not available 03/10/2023 Do You Use Your Seat Belt Or Car Seat Routinely? Yes Information not available 03/10/2023 Do You Have Smoke And Carbon Monoxide Detectors In Your Home? Yes Information not available 03/10/2023 Are There Any Smokers In Your House? No Information not available 03/10/2023 Do You Participate In Social Droplr? Yes Information not available 03/10/2023 Do You Feel Stressed (tense, Restless, Nervous, Or Anxious, Or Unable To Sleep At Night)? [id number] Information not available 03/10/2023 Do You Use Sunscreen Routinely? Yes Information not available 03/10/2023 Have You Recently Traveled Abroad? No Information not available 08/11/2024 Sex: Unknown Functional Status Question Answer Note LastModified by Organizat ion Details LastModified Time Do you have difficulty walking or climbing stairs? No Information not available 03/10/2023 Do you have transportation difficulties? No Information not available 03/10/2023 Are you able to walk? YESWOREST Information not available 03/10/2023 Do you have difficulty doing errands alone? No Information not available 03/10/2023 Are you able to care for yourself? Yes Information not available 03/10/2023 Do you have difficulty dressing or bathing? No Information not available 03/10/2023 What is your exercise level? None Information not available 03/10/2023 Mental Status Question Answer Note LastModified by Organization D etails LastModified Time Do you have difficulty concentrating, remembering or making decisions? No Information no t available 03/10/2023 Family History Nothing Reported. Medical History Condition Response BLINDNESS N RHEUMATIC FEVER N KIDNEY STONES N BLADDER PROBLEMS N MRSA N OTHER # 1 N POLIO N LUNG DISEASE/DISORDER N HISTORY OF DRUG ABUSE N RADIATION / CHEMOTHERAPY N COPD N Other # 2 N BLOOD DISEASES N SURGERY N EAR OR HEARING PROBLEMS N MUMPS N SHINGLES N FEMALE PROBLEMS / INFECTIONS N DEPRESSION (INCLUDING POST ) N BOWEL PROBLEMS N FAILED BACK SYNDROME N STROKE/TIA N THYROID DISEASE N ULCERS N BENIGN PROSTATIC HYPERPLASIA N MEASLES N CERVICALGIA N TB SKIN TEST N HYPOTENSION N MYOCARDIAL INFARCTION N PARAPELGIA N OBESITY N GERD/NAUSEA N ANEURYSM N URINARY/BLADDER/KIDNEY PROBLEMS N CORONARY ARTERY DISEASE (CAD) N MENIERE'S DISEASE N Do you have Advance directive? N ADDICTION CONCERNS N ENDOMETRIOSIS N USE OF BLOOD THINNERS N SKIN PROBLEMS N EMPHYSEMA N GASTROINTESTINAL DISORDER N PERIPHERAL ARTERY DISEASE N MUSCLE,JOINT OR BONE PROBLEMS N GASTROINTESTINAL BLEEDING N BLOOD CLOTS N ASTHMA N CATARACTS N Abdominal Pain N ERECTILE DYSFUNCTION N ARTERIAL INSUFFICIENCY N GI PROBLEMS N CHF N Low Testosterone N NEUROPATHY N INFERTILITY N AIDS/HIV N FRACTURES N CHEMOTHERAPY / RADIATION N VISION/EYE PROBLEMS N LIVER DISEASE N HYPERTENSION N TOURETTE'S N ANXIETY DISORDER N BLOOD TRANSFUSION N ANEMIA/BLOOD DISORDER N CHRONIC EAR INFECTIONS N BRONCHITIS N TUBERCULOSIS N GLAUCOMA N FOOT PROBLEM N DIVERTICULITIS N SLEEP APNEA N CHICKENPOX N ALLERGIES/HAYFEVER N BACK INJECTIONS N INFECTIOUS DISEASE N PROSTATE N HEART ARRHYTHMIA N ESRD N INSOMNIA N HIGH CHOLESTEROL / HYPERLIPIDEMIA N EYE PROBLEMS N HYPERTHYROIDISM N PVD N EATING DISORDER N EDEMA N CHRONIC PAIN SYNDROME N CAROTID BLOCKAGE N CONSTIPATION N BACK / NECK PROBLEMS N HAVE YOU BEEN HOSPITALIZED OR SEEN IN [facility] IN THE PAST YEAR ? N ATHEROSCLEROSIS N BREAST PROBLEMS N DIALYSIS N POLYCYSTIC OVARIES N ECZEMA N FIBROMYALGIA N OSTEOPOROSIS N ARTHRITIS N NO SIGNIFICANT PAST MEDICAL HISTORY N APPENDICITIS N DIABETES, TYPE N BAD TEETH N VON WILLIBRAND'S DISEASE N HEARTBURN / REFLUX N ADD/ADHD N AUTISM SPECTRUM DISORDER (ASD) N POST LAMINECTOMY SYNDROME N HEPATITIS / LIVER DISEASE N PULMONARY DISEASE N GOUT N SLEEP DISORDER N ALZHEIMER'S DISEASE N PAIN N DEMENTIA N HERPES N SEIZURES/EPILEPSY N HEADACHES/MIGRAINES N VASCULAR DISEASE N PACEMAKER N DIZZINESS N KIDNEY DISEASE N HEART DISEASE/HEART PROBLEMS N SCARLET FEVER N MULTIPLE SCLEROSIS N MENTAL DISORDER/ILLNESS N DEVELOPMENTAL OR BEHAVIORAL DISORDERS N NEUROPSYCHOLOGICAL N CANCER: SPECIFY N CARDIAC ARRHYTHMIA N PNEUMONIA N ATRIAL FIBRILLATION N Gall Stones N PULMONARY EMBOLISM N AUTOIMMUNE DISEASE N Past Encounters Encounter ID Performer Location Encounter Start Date Encounter Closed Date Diagnosis/Indication Diagnosis SNOMED-CT Code Diagnosis ICD10 Code Diagnosis Note [id number] Tyrone Burk MD [facility] [address] [address] 03/10/2023 11:28:43 03/10/2023 12:14:20 Adult health examination 418127804 Z00.00 Anemia screening 5783100 07 Z13.0 Diabetes m ellitus screening 176360000 Z13.1 Hyperlipid emia screening 843647365 Z13.220 Nephropathy screening 17 3553355 Z13.89 Screening for malignant neoplasm of prostate 271321223 Z12.5 Thyroid di sorder screening 447297959 Z13.29 Elevated blood-pressure reading without diagnosis of hypertension 697654890 R03.0 Gastroesop hageal reflux disease without esophagitis 942090520 K21.9 [id number] Tyrone Burk MD [address] [address] 03/30/2023 12:07:15 03/30/2023 12:34:06 Elevated blood-pressure reading without diagnosis of hypertension 137054681 R03.0 Gastroesop hageal reflux disease without esophagitis 494242512 K21.9 Bronchitis 19704215 J40 [id number] Tyrone Burk MD [address] [address] 04/07/2023 17:10:53 04/07/2023 17:34:40 Sinusitis 65742073 J32.9 Cough 69906207 R05.9 Seasonal a llergic rhinitis 302076176 J30.2 [id number] Tyrone Burk MD [address] [address] 09/13/2023 12:16:51 09/13/2023 12:52:27 Gastroesophageal reflux disease without esophagitis 723179707 K21.9 Elevated blood-pressure reading without diagnosis of hypertension 622789524 R03.0 Anemia screening 4914589 07 Z13.0 Diabetes m ellitus screening 341153471 Z13.1 Hyperlipid emia screening 911574946 Z13.220 Nephropathy screening 17 2612790 Z13.89 Screening for malignant neoplasm of prostate 231149826 Z12.5 Seasonal a llergic rhinitis 288006172 J30.2 Sensorineu ral hearing loss of bilateral ears 712717514 H90.3 chronic Adult heal th examination 975200073 Z00.00 [id number] Tyrone Burk MD [address] [address] 09/14/2023 11:06:12 09/14/2023 17:39:16 [id number] Tyrone Burk MD [address] [address] 10/06/2023 10:49:41 10/06/2023 11:19:50 Gastroesophageal reflux disease without esophagitis 047587557 K21.9 Elevated blood-pressure reading without diagnosis of hypertension 995088232 R03.0 Seasonal a llergic rhinitis 026336824 J30.2 Sensorineu ral hearing loss of bilateral ears 922499536 H90.3 chronic Hyperlipidemia 00804902 E78.5 [id number] Tyrone Burk MD [address] [address] 01/27/2024 14:19:33 01/27/2024 14:44:45 Hyperlipidemia 49373248 E78.5 Gastroesop hageal reflux disease without esophagitis 053202513 K21.9 Elevated blood-pressure reading without diagnosis of hypertension 096172102 R03.0 Seasonal a llergic rhinitis 162310472 J30.2 Sensorineu ral hearing loss of bilateral ears 356284470 H90.3 chronic Hypertriglyceridemia 302 534553 E78.2 [id number] Tyrone Burk MD [address] [address] 04/18/2024 16:19:48 04/18/2024 17:02:26 Eruption 389975917 R21 Lt knee Tinea corporis 46664151 B35.4 [id number] Tyrone Burk MD [address] [address] 04/27/2024 17:15:58 04/27/2024 17:49:00 Hyperlipidemia 70215275 E78.5 Hypertriglyceridemia 302 090734 E78.2 Gastroesop hageal reflux disease without esophagitis 239908553 K21.9 Elevated blood-pressure reading without diagnosis of hypertension 382200314 R03.0 Seasonal a llergic rhinitis 390974310 J30.2 Sensorineu ral hearing loss of bilateral ears 978922297 H90.3 chronic History an d physical examination, pre-employment 783523077 Z02.1 [id number] Tyrone Burk MD [place] [id number] 05/08/2024 09:40:06 05/08/2024 11:04:58 [id number] Tyrone Burk MD [place] [id number] 05/17/2024 10:48:54 05/17/2024 11:18:24 Hyperlipidemia 98237815 E78.5 Hypertriglyceridemia 302 021384 E78.2 Gastroesop hageal reflux disease without esophagitis 169081224 K21.9 Elevated blood-pressure reading without diagnosis of hypertension 614891156 R03.0 Seasonal a llergic rhinitis 310309232 J30.2 Sensorineu ral hearing loss of bilateral ears 776666441 H90.3 chronic [id number] TASIA Sparrow [address] [address] 08/11/2024 10:42:30 08/11/2024 11:12:57 Sore throat 177145170 J02.9 Cough 01849877 R05.9 Pt expresses concens with no abx prescripti on today, discussed abx stewardshi p, pt agreeable. [id number] Tyrone Burk MD [place] [id number] 09/13/2024 10:48:29 09/13/2024 11:28:59 Hypertriglyceridemia 526924299 E78.2 Hyperlipidemia 17157042 E78.5 Gastroesop hageal reflux disease without esophagitis 199991841 K21.9 Elevated blood-pressure reading without diagnosis of hypertension 406903213 R03.0 Seasonal a llergic rhinitis 912365052 J30.2 Sensorineu ral hearing loss of bilateral ears 261878848 H90.3 chronic Screening for malignant neoplasm of prostate 130071526 Z12.5 Impacted c erumen of bilateral ears 3851435225 033717 H61.23 [id number] Tyrone Burk MD [place] [id number] 09/14/2024 10:54:12 09/14/2024 16:16:11 [id number] Tyrone Burk MD [place] [id number] 10/04/2024 10:19:51 10/04/2024 10:43:36 Hypertriglyceridemia 998232460 E78.2 Hyperlipidemia 66356286 E78.5 Gastroesop hageal reflux disease without esophagitis 482752197 K21.9 Elevated blood-pressure reading without diagnosis of hypertension 626679618 R03.0 Seasonal a llergic rhinitis 831879621 J30.2 Sensorineu ral hearing loss of bilateral ears 573891284 H90.3 chronic Impacted c erumen of bilateral ears 7200128575 813516 H61.23 Prediabetes 130148409 R7 3.03 Hyperbilirubinemia 49349 006 E80.6 [id number] Tyrone Burk MD [place] [id number] 11/28/2024 10:50:55 11/28/2024 11:16:53 Chronic low back pain 097730398 M54.50 Pain in ri ght hip joint 7241527936 26407 M25.551 Health Concerns Section Related Observation LastModified by Organization Detai ls LastModified Time None Recorded Concern Status LastModified by Organization Details LastModified Time None Recorded Advance Directives Directive N: Payers Encounter Date Sequence Insurance Name Policy Number Policy Lemon Covered Member ID Lemon Member ID Guarantor Name 08/11/2024 1 [facility] (MEDICARE REPLACEMENT/A DVANTAGE - POS) [id number] Salvatore Colbert [id number] Salvatore Colbert 08/11/2024 2 [place] Salvatore Colbert [id number] Salvatore Colbert 09/13/2024 1 [facility] (MEDICARE REPLACEMENT/A DVANTAGE - POS) [id number] Salvatore Colbert [id number] Salvatore Colbert 09/13/2024 2 [place] Salvatore Colbert [id number] Salvatore Colbert 09/14/2024 1 [facility] (MEDICARE REPLACEMENT/A DVANTAGE - POS) [id number] Salvatore Hoyosgitt [id number] Salvatore Colbert 10/04/2024 1 [facility] (MEDICARE REPLACEMENT/A DVANTAGE - POS) [id number] Salvatore Colbert [id number] Salvatore Colbert 11/28/2024 1 [facility] (MEDICARE REPLACEMENT/A DVANTAGE - POS) [id number] Salvatore Colbert [id number] Salvatore Colbert Notes Date Note Type Note Provider Name and Address Organization Details Recorded Time 08/11/2024 text/html Salvatore Colbert is a 68 year old male patient here today for sick visit He has concerns today with a non-productive cough, runny nose, sore throat, MONICA ear pain. Declines fever and body aches. Home COVID test negative. TASIA Sparrow [address] [facility], [facility] [address], [place], [address], [employer] HERMEL DELOR 08/11/2024 11:10:06 09/13/2024 text/html Pt is here for his annual exam. Doing overall well. Denies any problem with meds. Denies any new concern. Pt is not checking his BP at home. No concern with it.Pt is f/u with ENT at for his chronic b/l hearing loss and he has hearing aids too. Tyrone Burk MD [address] [facility], [facility] [address], [place], [address], [employer] HERMEL DELOR 09/13/2024 11:30:14 10/04/2024 text/html Pt is here for f/u on his annual labs and b/l ear flushing. Doing overall well. Denies any problem with meds. Denies any new concern. Pt is not checking his BP at home. No concern with it.Pt is f/u with ENT at for his chronic b/l hearing loss and he has hearing aids too. Tyrone Burk MD [address], [facility] [address], [place], [address], [facility] [employer] [facility] [employer] [facility] 10/04/2024 10:40:56 11/28/2024 text/html ACV: C/o Rt lower back and Rt hip area pain for last 3 weeks. Denies any recent fall/trauma, denies any injury in the past. Pt says he gets this few times per day for last few yrs, but it gets better after a week; but this time, its still not better. Denies any incontinence. No other area pain, no other concern. Tyrone Burk MD [address], [facility] [address], [place], [address], [facility] [employer] [facility] [employer] 11/28/2024 11:22:01
--- OUTSIDE RECORDS SUMMARY | 2024-11-29 09:36 | XMS_ITS | Encounter Summary ---
Author Organization [facility] Address [address] [place] [address] Care Team Providers Care Booking Manager Name Role Phone Charito Ferrell PA-C Primary Care Provider [phone] Erich Parker MD Unavailable [phone] Encounter Details Date Type Department Care Team (Late st Contact Info) Description 06/28/2019 Abstract [facility] at [facility], [address] [address] Jose Freeman MA Social History Tobacco Use Types Packs/Day Years Used Date Smoking Tobacco: Never Smokeless Tobacco: Never Alcohol Use Standard Drinks/Week Comments No 0 (1 standard drink = 0.6 oz pur e alcohol) AUDIT-C Answer Date Recorded Frequency of Alcohol Consumption Never 08/10/2018 Average Number of Drinks Not on file 018 Frequency of Binge Drinking Not on file 07/30 Sex and Gender Information Value Date Recorded Sex Assigned at Not on file Legal Sex Male 6:13 PM CDT Gender Identity Not on file Sexual Orientation Not on file 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 Not on file Not on germaine e documented as of this encounter Plan of Treatment Not on file documented as of this encounter Procedures Procedure Name Priority Date/Time Associated Diagnosis Comments CBC (OUTSIDE LAB) Routine 06/21/2019 COMPREHENSIVE METABOLIC PANEL Routine 06/21/2019 LIPID PANEL Routine 06/21/2019 THYROID STIM HORMONE TSH Routine 06/21/2019 documented in this encounter Results * CBC (OUTSIDE LAB) (06/21/2019) Pathologist [facility] WBC 4.1 HGB 15.3 HCT 47.2 PLT 179 06/21/2019 us Doc [facility] Abstract LAB-OUTSIDE/ABSTRACTED Final Result * THYROID STIM HORMONE, TSH (06/21/2019) Pathologist [facility] TSH 1.68 0.40 - 4.50 06/21/2019 us Doc [facility] Abstract LABORATORY Final Result * COMPREHENSIVE METABOLIC PANEL (06/21/2019) Pathologist [facility] SODIUM S/P/B 139 POTASSIUM S/P/B 4.4 CO2 28 CHLORIDE S/P/B 103 GLUCOSE 98 mg/dL CALCIUM S/P/B 9.2 BUN 14 CREATININE S/P/B 0.96 0.7 - 1.3 EGFR AFR. AMER. 96 EGFR NON-AFR. AMER. 83 <=90 ALKALINE PHOSPHATASE S/P/B 64 ALT 22 AST 19 BILIRUBIN TOTAL S/P/B 1.5 ALBUMIN S/P/B 4.3 3.5 - 5.0 TOTAL PROTEIN S/P/B 6.7 GLOBULIN 2.4 06/21/2019 us Doc [facility] Abstract LABORATORY Final Result * LIPID PANEL (06/21/2019) Pathologist [facility] CHOLESTEROL 184 HDL 32 TRIGLYCERIDES 179 NON HDL CHOLESTEROL 152 LDL (CALCULATED) 122 06/21/2019 us Doc [facility] Abstract LABORATORY Final Result documented in this encounter Visit Diagnoses Not on filedocumented in this encounter Additional Health Concerns Infection Onset Date Last Indicated Resolved Time COVID-19 Rule Out 09/16/2021 09/16/2021 09/16/2021 1:43 PM JDE DEVELOPER COVID-19 Confirmed 09/16/2021 09/16/2021 2 12:32 AM JDE DEVELOPER documented as of this encounter Care Teams Booking Manager Relationship Specialty Start Date End Date Charito Ferrell PA-C [address] [place] [address]. [place] [address] PCP - General PHYSICIAN LAMINATION BUILDER 07/25/18 Erich Parker MD [facility]. [address] [address] [place] Clinical Statistics Manager CARDIOVASCULAR DISEASE 07/30/18 documented as of this encounter
--- OUTSIDE RECORDS SUMMARY | 2024-11-29 09:36 | XMS_ITS | Clinical Summary ---
Author Organization [facility] Address [address] [place] [address] Care Team Providers Care Chief Contract Officer Name Role Phone Charito Ferrell PA-C Primary Care Provider [phone] Erich Parker MD Unavailable [phone] Allergies No known active allergies Medications fish oil 1000 MG Cap capsule Take 1 capsule (1,000 mg total) by mouth 2 (two) times daily. 08/10/2018 Active latanoprost 0.005 % ophthalmic solution 08/14/2021 Active Multiple Vitamin (MULTIVITAMIN OR) Active famotidine (PEPCID) 20 MG tabletIndication s:Gastroesophage al reflux disease without esophagitis TAKE 1 TABLET BY MOUTH TWICE A DAY 180 tablet 3 11/25/2022 Active Active Problems Problem Noted Date Diagnosed Date Other chest pain 12/17/2022 Ulcerative colitis without c omplications, unspecified location ([facility]) 06/05/2022 Overview (06/05/2022): Added automatically from request for surgery [id number] Screening for colon cancer 06/05/2022 Overview (06/05/2022): Added automatically from request for surgery [id number] Gastroesophageal reflux disease without esophagi tis 03/10/2021 Allergic rhinitis, unspecifi ed seasonality, unspecified trigger 03/10/2021 Resolved Problems Problem Noted Date Diagnosed Date Resolved Date Current moderate episode of major depressive disorder without prior episode 06/25/2021 2 Immunizations Name Administration Dates Next Due Pneumococcal (Pneumovax 23) 07/18/2021, 0 Shingrix 07/18/2021 Tdap (Boostrix) 06/13/2016 Zoster (Zostavax) 26128 Unt/0.65Ml 10/27/2015 Family History Medical History Relation Comments Diabetes Mother Diabetes Sister 1 Diabetes Sister 2 Relation Status Comments Brother Alive Father (Age 86) Mother (Age 78) Sister 1 Alive Sister 2 (Age 57) Sister 3 Alive Sister 4 Alive Sister 5 Alive Sister 6 Alive Sister 7 Alive Social History Tobacco Use Types Packs/Day Years Used Date Smoking Tobacco: Never Smokeless Tobacco: Never Tobacco Cessation:Counseling Given: Not Answered Alcohol Use Standard Drinks/Week Comments No 0 (1 standard drink = 0.6 oz pur e alcohol) AUDIT-C Answer Date Recorded Frequency of Alcohol Consumption Never 08/10/2018 Average Number of Drinks Not on file 018 Frequency of Binge Drinking Not on file 07/30 PHQ-2 Answer Date Recorded PHQ-2 Score - If the patient scores above 3, please move on to questions 3-9 0 04/21/2022 Sex and Gender Information Value Date Recorded Sex Assigned at Not on file Legal Sex Male 6:13 PM CDT Gender Identity Not on file Sexual Orientation Not on file 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 on file Not on germaine e Last Filed Vital Signs Vital Sign Reading Time Taken Comments Blood Pressure 136/82 12/17/2022 10:56 AM CDT Pulse 78 12/17/2022 10:56 AM CDT Temperature 36.6 C (97.9 F) 06/25/2022 11:00 AM CDT Respiratory Rate 19 06/25/2022 1:40 PM CDT Oxygen Saturation 98% 12/17/2022 10:56 AM CDT Inhaled Oxygen Concentration - - Weight 78.9 kg (174 lb) 12/17/2022 10:56 AM CDT Height 176.5 cm (5' 9.5 ) 12/17/2022 10:56 AM CD T Body Mass Index 25.33 12/17/2022 10:56 AM CDT Plan of Treatment Health Maintenance Due Date Last Done Comments Annual Medicare Wellness Visit 11/30/2019 Zoster Vaccines (3 of 3) 09/12/2021 07/18/2021, 10/01 Pneumococcal Vaccine: 65+ Years (2 of 2 - PCV) 07/18/2022 07/18/2021, 07/18/2020 COVID-19 Vaccine (6 - season) 2024 06/22/2023, 03/27/2022, 10/13/2021, Additional history exists Influenza Adult (#1) 2024 PHQ-2 (Physician [place]) 08/30/2024 DTaP, Tdap and Td Vaccines (2 - Td or Tdap) 06/13/2026 06/13/2016 RSV Immunization or 60+ Years (1 - 1-dose 75+ series) 2029 Colorectal Cancer Screening Colonoscopy (10 Years) 06/25/2032 06/25/2022, 06/25/2022, 11/26/2016, Additional history exists Hepatitis C Completed 06/24/2022 Meningococcal B Vaccine Aged Out No l onger eligible based on patient's age to complete this topic Meningococcal Vaccine Aged Out No temitope opal eligible based on patient's age to complete this topic RSV Immunizations Under 20 Months Aged Out No longer eligible based on patient's age to complete this topic Procedures Procedure Name Priority Date/Time Associated Diagnosis Comments COLONOSCOPY Routine 06/25/2022 11:16 AM CDT HEP C AB W RFX TO HCV RNA/PCR W RFX TO GENOTYPE,LIPA LD Routine 06/24/2022 7:14 AM CDT from Last 3 Months or Most Recently Relevant to Health Maintenance Results * HEP C AB W RFX TO HCV RNA/PCR W RFX TO GENOTYPE,LIPA LD (06/24/2022 7:14 AM CDT) HEPATITIS C AB NON-REACTI VE NON-REACTI VE [facility] SIGNAL TO CUTOFF 0.05 <1.00 [facility] Comment: HCV antibody was non-reactive. There is no laboratory evidence of HCV infection. In most cases, no further action is required. However, if recent HCV exposure is suspected, a test for HCV RNA (test code 15180) is suggested. For additional information, please refer to http://education.PFI Acquisition/faq/MWJ706 (This link is being provided for informational/ educational purposes only.) 06/24/2022 7:14 AM CDT 06/24/2022 7:16 AM CDT us Charito Ferrell PA-C LABORATORY Final Resu lt [facility] [address] [facility] [id number] * COLONOSCOPY GENERIC (11/26/2016) 11/26/2016 Narrative 11/26/2016 Ordered by an unspecified provider. us Documents Scanned SCANNING Final Result from Last 3 Months or Most Recently Relevant to Health Maintenance Insurance MEDICARE Care Teams Chief Contract Officer Relationship Specialty Start Date End Date Charito Ferrell PA-C [address] [place] [id number] PCP - General PHYSICIAN LIP READING TEACHER 07/25/18 Erich Parker MD [facility]. [address] [address] [place] Manager Documentation CARDIOVASCULAR DISEASE 07/30/18
--- OUTSIDE RECORDS SUMMARY | 2024-11-29 09:36 | XMS_ITS | Continuity of Care Document ---
Author Organization [place] [facility] Address [address] [place] [address] Care Team Providers Care X Ray Service Engineer Name Role Phone TYRONE BURK Primary Care Provider Assessment No assessment recorded. Plan of Treatment Reminders Order Date Submit Date Provider Last Modified By Organization Details Last Modified Time Details Appointments Follow Up 15 2024 09:30A M Tyrone Burk MD Not available Not available Not available Any 15 2024 09:00A M Tyrone Burk MD Not available Not available Not available Lab None recorded. Referral None recorded. Procedures None recorded. Surgeries None recorded. Imaging XR, lumbosacr al spine, 4 or more view [address], [address] [place] [address], [id number], 11/28/2024 11:16:54 XR, sacroilia c joint(s), 3 or more view [address], [address] [place] [address], [address], 11/28/2024 11:16:54 XR, hip, unilatera l, 2 or 3 view - With Pelvis [address], [address] [place] [address], [address], 11/28/2024 11:16:54 Medication Orders cyclobenz aprine 10 mg tablet 2024 025 [id number], [address] [facility], [place], [place], [id number], 11/28/2024 11:12:29 diclofena c sodium 75 mg tablet,de layed release 2024 04/2 025 [id number], [address] [facility], [place], [place], [id number], 11/28/2024 11:12:27 Patient TargetsNo targets recorded. Patient InstructionsNo instructions recorded. Reason for Referral None Reported. Problems Name Problem SNOMED Code Status Onset Date Resolution Date Notes Provider Name and Address Organization Details Recorded Time Elevated blood-press ure reading without diagnosis of hypertensio n 997912959 Active 2022 Tyrone Burk MD [address], [place], [address], Dr. Z 3 12:01:26 Gastroesoph ageal reflux disease without esophagitis 347105040 Active 2022 Tyrone Burk MD [address], [place], [address], Dr. Z 3 12:03:18 Bronchitis 69634558 Active 2022 Tyrone Burk MD [address], [place], [address], Dr. Z 3 12:28:15 Sinusitis 39803415 Active 2022 Tyrone Burk MD [address], [place], [address], Dr. Z 3 17:24:53 Cough 39459992 Active 2022 MD [address], [place], [address], Dr. Z 3 17:25:21 Seasonal allergic rhinitis 627321260 Active 2022 MD [address], [place], [address], [place] [facility] 3 17:27:11 Sensorineur al hearing loss of bilateral ears 574709658 Active 2023 yTrone Burk MD [address], [place], [address], [place] [facility] 4 12:34:38 Hyperlipide vladimir 45360343 Active 2023 Tyrone Burk MD [address], [address], [place], [address], [place] [facility] 4 11:09:32 Hypertrigly ceridemia 962876578 Active 2023 Tyrone Burk MD [address], [place], [address], [place] [facility] 4 14:04:27 Eruption 652975121 Active 2023 Tyrone Burk MD [address], [place], [address], [facility] [place] [facility] 4 16:37:07 Tinea corporis 29914877 Active 2023 Tyrone Burk MD [address], [address], [place], [address], [place] [facility] 4 16:37:25 Sore throat 146998197 Active 2023 TASIA Sparrow [address], [address], [place], [address], [place] [facility] 4 11:04:30 Chronic cough 69342045 Active 2023 TASIA Sparrow [address], [address], [place], [address], [place] [facility] 4 11:07:28 Acute sinusitis 28562826 Active 2023 TASIA Sparrow [address], [place], [address], [place] [facility] [place] [facility] 4 09:11:16 Impacted cerumen of bilateral ears 7158724905429 108 Active 2024 Tyrone Burk MD [address], [place], [address], [place] [facility] 5 11:18:51 Prediabetes 974574757 Active 2024 Tyrone Burk MD [address], [place], [address], [facility] 5 10:31:18 Hyperbiliru binemia 06819647 Active 2024 Tyrone Burk MD [address], [place], [address], [facility] 5 10:31:46 Chronic low back pain 741293867 Active 2024 Tyrone Burk MD [address], [place], [address], [facility] 5 11:08:39 Pain in right hip joint 0983634462665 02 Active 2024 Tyrone Burk MD [address], [place], [address], [facility] [place] [facility] 5 11:09:06 Problem Notes None recorded. Procedures Surgical History Date Name Laterality Status Provider Name and Address Organization Details Recorded Time 5 Ear Irrigation completed Tyrone Burk MD [address], [place], [address], [facility] [place] [facility] 10/04/2024 10:35:45 2 colonoscopy completed Kierra Alberts RN [facility] 03/10/2023 11:49:11 5 Carpal tunnel surgery completed Kierra Alberts RN [facility] 03/10/2023 11:45:17 4 Carpal tunnel surgery completed Kierra Aristeo, RN [facility] 03/10/2023 11:45:01 0 vasectomy completed Kierra Alberts RN [facility] 03/10/2023 11:44:13 Imaging Results None recorded. Procedure Notes None recorded. Medical Equipment None [...] Updated DateTime 5 175.26 cm 24.4 kg/m2 09259.4 9 g 97.2 [degF] 98 % 98 % 68 /min 140 mm[Hg] 72 mm[Hg] Sheila Brown RN [facility] [employer] 11:04:41 Social History Question Answer Notes LastModified by Organization Details LastModified Time Tobacco Smoking Status Never Smoker Kierra Alberts RN [facility], [facility] [facility] [employer] 03/10/2023 11:46:10 Do You Have An Advance Directive? No Information not available 03/10/2023 What Is Your Level Of Alcohol Consumption? None Information not available 03/10/2023 Are You Blind Or Do You Have Difficulty Seeing? No Information not available 03/10/2023 Is Blood Transfusion Acceptable In An Emergency? Yes Information not available 03/10/2023 What Is Your Level Of Caffeine Consumption? Moderate Soda-coke, And Sunkist [place] [id number] Information not available 09/13/2024 In The 14 [...] Do You Have A Medical Power Of Rn Ambulatory? No Information not available 03/10/2023 Do You [...] available 03/10/2023 Do You Participate In Social Media? Yes Information not available 03/10/2023 Do You Feel Stressed (tense, Restless, Nervous, Or Anxious, Or Unable To Sleep At Night)? [id number] Information not available 03/10/2023 Do You Use [...] HAVE YOU BEEN HOSPITALIZED OR SEEN IN [facility] IN THE PAST YEAR ? N [...] SNOMED-CT Code Diagnosis ICD10 Code Diagnosis Note [id number] Tyrone Burk MD [facility] [address] [place] [address] 11/28/2024 10:50:55 11/28/2024 11:16:53 Chronic low back pain 814449716 M54.50 Pain in ri ght hip joint 6470508080 47868 M25.551 Health Concerns Section Related Observation LastModified by Organization Detai ls LastModified Time None Recorded Concern Status LastModified by Organization Details LastModified Time None Recorded Payers Encounter Date Sequence Insurance Name Policy Number Policy Lemon Covered Member ID Lemon Member ID Guarantor Name 11/28/2024 1 [facility] (MEDICARE REPLACEMENT/A DVANTAGE - POS) [id number] Salvatore Colbert [id number] Salvatore Colbert Notes Date Note Type Note Provider Name and Address Organization Details Recorded Time 11/28/2024 text/html ACV: C/o Rt lower back [...] pain, no other concern. Tyrone Burk MD [address] [place] [address], [place], [address], [facility] [employer] [facility] 11/28/2024 11:22:01
--- OUTSIDE RECORDS SUMMARY | 2024-11-29 09:36 | XMS_ITS | Continuity of Care Document ---
Author Name [facility] Organization [facility] Care Team Providers Care Oil Burner Installer Name Role Phone [facility] Unavailable Unavailable Problems Combined list of problems from [facility] and [facility] facilities. It does not include entries that were removed or entered in error. Problem Status Onset Date Problem Type Date of Resolution Comments Source Allergic rhinitis Active Condition [facility] G[facility] - Gastro-Esophag eal Reflux Disease ([facility] [[email or web address] [id number]) Active Condition Sep 04, 2022 Entered By: TORITO ODONNELL Comment: history of GI bleed per pt [facility] Glaucoma Active Condition [facility] Hearing loss Active Condition [facility] Pain of left shoulder joint Active Condition [facility] Medications Combined list of outpatient medications from [facility] and [facility] facilities.Medications provided include 1) outpatient medications from the last 15 months, and 2) patient-reported medications. Medication Details Route Status Patient Instructions Prescription Expires Prescription Number Last Dispense Date Ordering Provider Order Date Order Qty Source CETIRIZINE HCL 10MG TAB TAKE ONE TABLET BY MOUTH ONCE A DAY NEEDED ORAL ACTIVE ОЛЕГ ODONNELLA A 2022 [facility] FAMOTIDINE 20MG TAB TAKE ONE TABLET BY MOUTH TWICE A DAY NEEDED ORAL ACTIVE ОЛЕГ ODONNELLA A 2022 [facility] LATANOPROST 0.005% SOLN,OPH INSTILL 1 DROP IN BOTH EYES EVERY EVENING OPHTHA LMIC ACTIVE ОЛЕГ ODONNELLA A 2022 [facility] Immunizations Combined list of available immunizations from the [facility] and [facility] facilities. Immunization Series Date Given Administered By Site Reaction Lot Number CVX Code Drug Community Health Agent Status Comments Source COVID-19 (PFIZER), MRNA, LNP-S, PF, 30 MCG/0.3 ML DOSE 2021 208 complet ed [facility] COVID-19 (PFIZER), MRNA, LNP-S, PF, 30 MCG/0.3 ML DOSE 3 2021 208 complet ed [facility] COVID-19 (PFIZER), MRNA, LNP-S, PF, 30 MCG/0.3 ML DOSE 2 2020 208 complet ed [facility] COVID-19 (PFIZER), MRNA, LNP-S, PF, 30 MCG/0.3 ML DOSE 1 2020 208 complet ed [facility] Social History Combined list of available smoking, tobacco, and other social history from Department of Defense and Veterans Affairs facilities. Social History Type Response Date Comment [facility] e Tobacco smoking status [facility] NEVER USED 09/04/2022 [facility]
== END 2024-11-29 09:05 | disposition home or self-care (01) ==
PROVIDERS: PCP Family Medicine; Visit Provider Family Medicine
DX: M25.551 Pain in right hip (principal); M54.50 Low back pain, unspecified; M47.816 Spondylosis without myelopathy or radiculopathy, lumbar region
CPT/HCPCS: 72110; 72202; 73502

== ENCOUNTER 2025-04-03 10:09 | Outpatient (CLI) | payer MEDICARE, SELFPAY ==
--- NOTE | ~2025-04-03 | XR_ITS ---
EXAMINATION: XR clavicle LT DATE: 04/03/2025 10:39 INDICATION: Chronic left shoulder pain TECHNIQUE: AP and 10 degree cephalad angled AP views of the left clavicle were obtained. COMPARISON: Left shoulder radiographs dated 04/03/25 FINDINGS: Alignment is normal. No fracture. Moderate osteoarthritis at the left acromioclavicular joint with sm all inferiorly directed osteophytes. Mild left glenohumeral osteoarthritis. Visualized portions of th e upper lungs are clear. IMPRESSION: 1. 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 Reviewed, dictated and finalized at location A.
--- NOTE | ~2025-04-03 | XR_ITS ---
Cervical Spine: AP, lateral, open-mouth views Clinical History: Pain Findings: The normal lordotic curve is maintained. The vertebral bodies and posterior elements appea r intact. The intervertebral disc spaces are well maintained. Moderate facet arthropathy present at the cervical spine. Pre-vertebral soft tissues are unremarkable. Impression: Moderate facet arthropathy throughout the cervical spine. Reviewed, dictated and finalized at [facility]. Impression: Moderate facet arthropathy throughout the cervical spine.
--- NOTE | ~2025-04-03 | XR_ITS ---
Left Shoulder Technique: AP and axillary views were obtained. Clinical History: Pain Findings: No fracture or dislocation is seen. Osseous alignment is anatomic. The glenohumeral joint i s intact. There is mild AC joint degenerative change. Soft tissues are unremarkable. Impression: Mild AC joint degenerative change. Reviewed, dictated and finalized at location . Impression: Mild AC joint degenerative change.
--- OUTSIDE RECORDS SUMMARY | 2025-04-03 10:36 | XMS_ITS | Clinical Summary ---
Author Organization [facility] Address [address] [place] [address] Care Team Providers Care Civil Designer Name Role Phone Charito Ferrell PA-C Primary Care Provider [phone] Erich Parker MD Unavailable [phone] Allergies No known active allergies Medications [...] Ulcerative colitis without c omplications, unspecified location ([facility] 06/05/2022 Overview (06/05/2022): Added automatically from request for surgery [id number] Screening for colon cancer 06/05/2022 Overview (06/05/2022): Added automatically from request for surgery [id number] Gastroesophageal reflux disease without esophagi tis 03/10/2021 Allergic rhinitis, unspecifi ed seasonality, unspecified trigger 03/10/2021 Resolved Problems Problem Noted Date Diagnosed Date Resolved Date Current moderate episode of major depressive disorder without prior episode 06/25/2021 2 Immunizations Immunization Administration Dates Next Due Pneumococcal (Pneumovax 23) 07/18/2021, 0 Shingrix 07/18/2021 Tdap (Boostrix) 06/13/2016 Zoster (Zostavax) 31005 Unt/0.65Ml 10/27/2015 Family History Medical History Relation [...] 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 For additional information, please refer to http://education.[employer]/faq/RQN901 (This link is being provided for informational/ educational purposes only.) 06/24/2022 7:14 AM CDT 06/24/2022 7:16 AM CDT us Charito Ferrell PA-C LABORATORY Final Resu lt [facility] [address] [id number] * COLONOSCOPY GENERIC (11/26/2016) 11/26/2016 Narrative 11/26/2016 Ordered by an unspecified provider. us Documents Scanned SCANNING Final Result from Last 3 Months or Most Recently Relevant to Health Maintenance Insurance MEDICARE Care Teams Civil Designer Relationship Specialty Start Date End Date Charito Ferrell PA-C [address] [place] [id number] PCP - General PHYSICIAN ADVERTISING DISPATCH CLERKS SUPERVISOR 07/25/18 Erich Parker MD [facility]. [address] [address] [place] Mechanical Artist CARDIOVASCULAR DISEASE 07/30/18
--- OUTSIDE RECORDS SUMMARY | 2025-04-03 10:36 | XMS_ITS | Encounter Summary ---
Author Organization 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 file [...] Results * CBC (OUTSIDE LAB) (06/21/2019) Pathologist [facility] WBC 4.1 HGB 15.3 HCT 47.2 PLT 179 06/21/2019 us Doc [facility] Abstract LAB-OUTSIDE/ABSTRACTED Final Result * THYROID STIM HORMONE, TSH (06/21/2019) Pathologist [facility] TSH 1.68 0.40 - 4.50 06/21/2019 us Doc [facility] Abstract LABORATORY Final Result * COMPREHENSIVE METABOLIC PANEL (06/21/2019) Pathologist [facility] SODIUM S/P/B 139 POTASSIUM S/P/B 4.4 [...] Final Result * LIPID PANEL (06/21/2019) Pathologist [facility] CHOLESTEROL 184 HDL 32 TRIGLYCERIDES 179 NON HDL CHOLESTEROL 152 LDL (CALCULATED) 122 06/21/2019 us Doc [facility] Abstract LABORATORY Final Result documented in this encounter Visit Diagnoses Not on filedocumented in this encounter Additional Health Concerns Infection Onset Date Last Indicated Resolved Time COVID-19 Rule Out 09/16/2021 09/16/2021 09/16/2021 1:43 PM INSTITUTION LIBRARIAN COVID-19 Confirmed 09/16/2021 09/16/2021 2 12:32 AM INSTITUTION LIBRARIAN documented as of this encounter Care Teams Continuous Mining Machine Lode Miner Relationship Specialty Start Date End Date Charito Ferrell PA-C [address] [place] [address]. [place] [address] PCP - General PHYSICIAN ADULT LITERACY TEACHER 07/25/18 Erich Parker MD [facility]. [address] [address] [place] Continuity Person CARDIOVASCULAR DISEASE 07/30/18 documented as of this encounter
--- OUTSIDE RECORDS SUMMARY | 2025-04-03 10:36 | XMS_ITS | Continuity of Care Document ---
Author Name [facility] Organization [facility] Care Team Providers Care Supervisor Car And Yard Name Role Phone [facility] Unavailable Unavailable Problems Combined list of problems from [facility] and [facility] facilities. It does not include entries that were removed or entered in error. Problem Status Onset Date Problem Type Date of Resolution Comments Source Allergic rhinitis Active Condition [facility] GERD - Gastro-Esophag eal Reflux Disease ([facility] [id number]) Active Condition Sep 04, 2022 Entered By: TORITO ODONNELL Comment: history of GI bleed per pt [facility] Glaucoma Active Condition [facility] Hearing loss Active Condition [facility] Pain of left shoulder joint Active Condition [facility] Medications Combined list of outpatient medications from [facility] and [facility] facilities.Medications provided include 1) outpatient medications from the last 15 months, and 2) patient-reported medications. Medication Details Route Status Patient Instructions Prescription Expires Prescription Number Last Dispense Date Ordering Provider Order Date Order Qty Source CETIRIZINE HCL 10MG TAB TAKE ONE TABLET BY MOUTH ONCE A DAY NEEDED ORAL ACTIVE ОЛЕГ ODONNELLA A 2022 [facility] FAMOTIDINE 20MG TAB TAKE ONE TABLET BY MOUTH TWICE A DAY NEEDED ORAL ACTIVE ОЛЕГ ODONNELLA A 2022 [facility] LATANOPROST 0.005% SOLN,OPH INSTILL 1 DROP IN BOTH EYES EVERY EVENING OPHTHA LMIC ACTIVE ОЛЕГ ODONNELLA A 2022 [facility] Immunizations Combined list of available immunizations from the [facility] and [facility] facilities. Immunization Series Date Given Administered By Site Reaction Lot Number CVX Code Drug Still Pump Operator Status Comments Source COVID-19 (PFIZER), MRNA, LNP-S, PF, 30 MCG/0.3 ML DOSE 2021 208 complet ed HISTORICA L INFORMATI ON - FROM PARENT'S WRITTEN RECORD, [facility] COVID-19 (PFIZER), MRNA, LNP-S, PF, 30 MCG/0.3 ML DOSE 3 2021 208 complet ed HISTORICA L INFORMATI ON - FROM PARENT'S WRITTEN RECORD, [facility] COVID-19 (PFIZER), MRNA, LNP-S, PF, 30 MCG/0.3 ML DOSE 2 2020 208 complet ed HISTORICA L INFORMATI ON - FROM PARENT'S WRITTEN RECORD, [facility] COVID-19 (PFIZER), MRNA, LNP-S, PF, 30 MCG/0.3 ML DOSE 1 2020 208 complet ed HISTORICA L INFORMATI ON - FROM PARENT'S WRITTEN RECORD, [facility] Social History Combined list of available smoking, tobacco, and other social history from Department of Defense and Veterans Affairs facilities. Social History Type Response Date Comment Sourc e Tobacco smoking status [facility] NEVER USED 09/04/2022 [facility]
== END 2025-04-03 10:10 | disposition home or self-care (01) ==
PROVIDERS: PCP Family Medicine; Visit Provider Family Medicine
DX: M47.812 Spondylosis without myelopathy or radiculopathy, cervical region (principal); M19.012 Primary osteoarthritis, left shoulder
CPT/HCPCS: 72050; 73000; 73030

== ENCOUNTER 2025-06-23 09:14 | Outpatient (CLI) | payer MEDICARE, SELFPAY ==
--- OUTSIDE RECORDS SUMMARY | 2013-04-10 02:00 | XMS_ITS | Continuity of Care Document ---
Author Organization [facility] [place] Address [address] [place] [address] [address] [place] [address] Phone Care Team Providers Care Casserole Preparer Name Role Phone Yaz PT, CMPT, Alhaji Unavailable Jeanne vailable Procedures Procedure Date PT RE-EVALUATION THERAPEUTIC EXERCISES NEUROMUSCULAR RE-ED MANUAL THERAPY FUNC ACTIVITY 15 MIN HOT/COLD PACK THERAPEUTIC EXERCISES NEUROMUSCULAR RE-ED MANUAL THERAPY FUNC ACTIVITY 15 MIN HOT/COLD PACK THERAPEUTIC EXERCISES NEUROMUSCULAR RE-ED MANUAL THERAPY FUNC ACTIVITY 15 MIN HOT/COLD PACK THERAPEUTIC EXERCISES NEUROMUSCULAR RE-ED MANUAL THERAPY FUNC ACTIVITY 15 MIN THERAPEUTIC EXERCISES NEUROMUSCULAR RE-ED MANUAL THERAPY FUNC ACTIVITY 15 MIN HOT/COLD PACK THERAPEUTIC EXERCISES NEUROMUSCULAR RE-ED MANUAL THERAPY FUNC ACTIVITY 15 MIN HOT/COLD PACK THERAPEUTIC EXERCISES NEUROMUSCULAR RE-ED MANUAL THERAPY FUNC ACTIVITY 15 MIN HOT/COLD PACK THERAPEUTIC EXERCISES MANUAL THERAPY FUNC ACTIVITY 15 MIN HOT/COLD PACK THERAPEUTIC EXERCISES MANUAL THERAPY HOT/COLD PACK THERAPEUTIC EXERCISES MANUAL THERAPY HOT/COLD PACK THERAPEUTIC EXERCISES MANUAL THERAPY HOT/COLD PACK PT EVALUATION THERAPEUTIC EXERCISES MANUAL THERAPY HOT/COLD PACK Advance Directives Directive Yes / No Effective Date File Name No Information Encounters Encounter Description Practice Location Reason(s) For Visit Diagnoses Date Provider Providers Copied on Encounter [facility] [address] [place], [place] [address], [place], [place], [id number], tel:[phone] [place] No Information Carlos Mane. [address] [place] [address], [facility] [address] [place], [facility], . tel:[phone] Referring Provider: Edwin Sanchez [address], [place], [address]. tel:[phone] [address], [place], [place], [id number], tel:[phone] [place] No Information Carlos Mane. [address] [facility], [facility] [address], [place], [facility], . tel:[phone] Referring Provider: Edwin Sanchez [address], [place], [address]. tel:[phone], [place], [place], [id number], tel:[phone] [place] No Information Carlos Mane. [address] [facility], [address], [place], [facility], . tel:[phone] Referring Provider: Edwin Sanchez [address], [place], [address]. tel:[phone] [address], [place], [place], [id number], tel:[phone] [place] No Information Carlos Mane. [address] [facility], [facility] [address] [place], [facility], . tel:[phone] Referring Provider: Edwin Sanchez, Ty[address]Venita [address], [place], [address]. tel:[phone], [place], [place], [id number], tel:[phone] [place] No Information Carlos Mane. [address] [place] [address], [facility] [address] [place], [facility], . tel:[phone] Referring Provider: Edwin Sanchez TyronVenita [address], [place], [address]. tel:[phone] [place], [place] [address], [place], [place], [id number], tel:[phone] [place] No Information Carlos Mane. [address] [place] [address], [address], [facility], . tel:[phone] Referring Provider: Edwin Sanchez [address], [place], [address]. tel:[phone], [place], [place], [address], tel:[phone] [place] No Information Carlos Mane. [address] [place] [address], [address], [facility], . tel:[phone] Referring Provider: Edwin Sanchez [address]Venita [address], [place], [address]. tel:[phone] [facility] [address], [place], [place], [id number], tel:[phone] [place] No Information Carlos Mane. [address] [facility], [address], [facility], . tel:[phone] Referring Provider: Hamzah Adair [address], [place], [address]. tel:[phone] [place] [address] [address], [place], [place], [id number], tel:[phone] [place] No Information Carlos aMne. [address] [facility], [address], [place], [place], [facility], . tel:[phone] Referring Provider: [address]ah [address], [place], [address]. tel:[phone] [place] [address] [address], [place], [place], [address], [place] tel:[phone] [place] No Information Carlos Mane. [address] [facility], [address], [place], [address], [place]. tel:[phone] Referring Provider: Hamzah [address], [place], [address]. tel:[phone] [place] [address] [address], [place], [place], [id number], [place] tel:[phone] [place] No Information Carlos Mane. [address] [facility], [address], [facility], . tel:[phone] Referring Provider: Hamzah Adair [address], [place], [address]. tel:[phone], [place], [place], [address], tel:[phone] [place] Pain in joint involving lower leg Carlos Mane. [address] [facility], [address], [place], [address], [place]. tel:[phone] Referring Provider: Edwin Sanchez [address] [facility] [address], [place], [address]. tel:[phone] Family History Family Member Type Diagnosis Age At Onset No Information Payers Payer name Insurance type Covered green party ID Daniel ramirez(s) [facility] [id number] [facility] Social History Type Description Quantity Date Captured Comments Sex Male Smoking Status No Information Chief Complaint And Reason For Visit No Information Reason For Referral Reason For Referral No Information History Of Present Illness Encounter Date Complaint History Of Prese nt Illness No Information Functional Status Date Functional Assessmen t No Information Instructions Date Instruction Additional Infor mation No Information Assessments Type Assessment Date No Information Patient Care Teams Name Effective Dates (start - stop) Status Members No Information
--- NOTE | ~2025-06-23 | MR_ITS ---
EXAMINATION: MR shoulder LT wo con DATE: 06/23/2025 10:55 INDICATION: Chronic left shoulder pain TECHNIQUE: Magnetic resonance imaging (MRI) of the left shoulder was performed without intravenous contrast. Sequences included axial PD-weighted FS FSE, coronal oblique PD-weighted FS FSE, coronal oblique T2-weighted FS FSE, sagittal PD-weighted FS FSE, and sagittal T1-weighted SE. COMPARISON: None. FINDINGS: Coracoacromial arch: The acromion undersurface is curved in morphology (type II). The coracoacromial ligament is normal. Severe acromioclavicular osteoarthritis with small inferiorly directed osteophytes which exerts mass effect upon the underlying distal supraspinatus muscle belly. Rotator cuff: Mild supraspinatus tendinopathy without tear. The infraspinatus, teres minor and subscapularis tendons are normal. Normal rotator cuff muscle bulk and signal. Biceps tendon, glenoid labrum and glenohumeral cartilage: Long head of the biceps tendon is normal. There is a tear at the 4:30-7:00 position of the anteroinferior to inferior glenoid labrum. As well-defined mild amorphous increased signal consistent with mild degeneration at the 12:00-11:00 position of the posterior superior labrum. Glenohumeral cartilage is normal. Fluid: Physiologic amount of fluid in the glenohumeral joint. Mild increased fluid in the long head biceps tendon sheath consistent with mild bicipital tenosynovitis. No loose osteochondral bodies. Of mild increased fluid signal in the subacromial/subdeltoid bursa consistent with mild bursitis. Bones: Reactive marrow edema at both sides of the acromioclavicular joint. Otherwise normal marrow signal with no fracture or pathologic marrow replacing process. IMPRESSION: 1. Severe left smith clavicular osteoarthritis with inferiorly directed osteophytes exerting mass effect upon the underlying distal supraspinatus muscle belly. 2. Mild supraspinatus tendinopathy without discrete tear which could be due to impingement related to the acromioclavicular osteophytes. 3. Degeneration of the posterior superior glenoid labrum and more well-defined tear of the anteroinferior to inferior labrum. 4. Mild bicipital tenosynovitis. Reviewed, dictated and finalized at location A. IMPRESSION: 1. Severe left smith clavicular osteoarthritis with inferiorly directed osteop hytes exerting mass effect upon the underlying distal supraspinatus muscle lou y. 2. Mild supraspinatus tendinopathy without discrete tear which could be due to impingement related to the acromioclavicular osteophytes. 3. Degeneration of the posterior superior glenoid labrum and more well-defined tear of the anteroinferior to inferior labrum. 4. Mild bicipital tenosynovitis.
--- NOTE | ~2025-06-23 | MR_ITS ---
EXAMINATION: MR cervical spine wo con DATE: 06/23/2025 10:55 INDICATION: Chronic left shoulder pain with numbness and tingling. TECHNIQUE: Magnetic resonance imaging (MRI) of the cervical spine was performed without intravenous contrast. COMPARISON: Cervical spine radiographs 04/03/2025 FINDINGS: There is 2 mm anterolisthesis of C3 on C4 and C7 on T1. Vertebral body heights are normal. There is mildly decreased disc height at C5-C6 and C6-C7. The spinal cord signal intensity is normal. The following disc levels are specifically discussed: C2-C3: The disc does not extend beyond the endplate margin. There is mild left uncovertebral joint osteoarthritis. There is mild right facet joint osteoarthritis. There is ankylosis of left facet joint with moderate hypertrophy. There is mild left neural foraminal stenosis. There is no central canal stenosis. C3-C4: There is a central extrusion. There is mild bilateral uncovertebral joint osteoarthritis. There is severe bilateral facet joint osteoarthritis. There is mild right and moderate left neural foraminal stenosis. There is mild central canal stenosis with ventral indentation of the spinal cord. C4-C5: There is a central protrusion. There is mild bilateral uncovertebral joint osteoarthritis. There is severe bilateral facet joint osteoarthritis. There is mild bilateral neural foraminal stenosis. There is mild central canal stenosis. C5-C6: The disc is bulging. There is severe bilateral uncovertebral joint osteoarthritis. There is severe right and moderate left facet joint osteoarthritis. There is moderate bilateral neural foraminal stenosis. There is mild central canal stenosis with ventral indentation of the spinal cord. C6-C7: The disc is bulging. There is severe bilateral uncovertebral joint osteoarthritis. There is moderate bilateral facet joint osteoarthritis. There is moderate bilateral neural foraminal stenosis. There is moderate central canal stenosis with ventral and dorsal indentation of the spinal cord. C7-T1: There is a central extrusion. There is no uncovertebral joint osteoarthritis. There is severe bilateral facet joint osteoarthritis. There is mild bilateral neural foraminal stenosis. There is mild central canal stenosis with ventral indentation of the spinal cord. IMPRESSION: 1. Moderate cervical spondylosis. Reviewed, dictated and finalized at location E.
--- OUTSIDE RECORDS SUMMARY | 2025-06-23 09:21 | XMS_ITS | Data Portability ---
Author Organization [facility] [employer], Main Office Address [address] [place] [address] Care Team Providers Care Cut Pressman Name Role Phone TYRONE BURK Primary Care Provider TYRONE BURK Referring Provider [phone] TYRONE BURK Primary Care Provider Assessment Encounter Date Assessment Date Assessment LastModified by Organization Details LastModified Time 01/02/2025 01/02/2025 69 yo M with - PRE-DM - HYPERBILIRUBINEM IA, resolved - ELEVATED BP, stable - HLD - HTG - GERD - SEASONAL ALLERGIC RHINITIS - B/L HEARING LOSS, chronic HbA1c: 6.0(09/14/24) - 6.0(12/21/24) X-ray L-spine, SI joints, Rt hip: 11/29/24. Annual labs: 09/14/24. Annual labs: 09/14/23. CXR: 04/08/23. HbA1c, H pylori: 03/12/23. D/w pt in detail about his conditions, recent labs & imagines and further plan of care. Pt declined for any new med. Meds as directed. Diet and exercise explained. BP diary education given and call us if any concerns. Cont f/u with ENT at [facility] as per schedule. Cont f/u with Ophtho as per schedule. Cont f/u with GI as per schedule. HM: Colonoscopy - 06/20, normal as per pt. Cont f/u with GI (5 yrs) as per schedule. Flu - Pt declined. Tdap, Pneumo, Shingrix - At pharmacy/HD. F/u in 3-4 months. A1c, lipids in 04/23. Annual labs in 09/24. [email or web address] Not available 01/02/2025 10:11:50 04/03/2025 04/03/2025 69 yo M with - LT SHOULDER PAIN, chronic - CERVICAL RADICULOPATHY - PRE-DM - HYPERBILIRUBINEM IA, resolved - ELEVATED BP, stable - HLD - HTG - GERD - SEASONAL ALLERGIC RHINITIS - B/L HEARING LOSS, chronic HbA1c: 6.0(09/14/24) - 6.0(12/21/24) - 6.0(03/27/25) X-ray L-spine, SI joints, Rt hip: 11/29/24. Annual labs: 09/14/24. Annual labs: 09/14/23. CXR: 04/08/23. HbA1c, H pylori: 03/12/23. D/w pt in detail about his conditions, recent labs & imagines and further plan of care. Will do x-rays. Pt declined for any new med. Meds as directed. Ice pack as directed prn. Diet and exercise explained. BP diary education given and call us if any concerns. Cont f/u with ENT at [facility] as per schedule. Cont f/u with Ophtho as per schedule. Cont f/u with GI as per schedule. HM: Colonoscopy - 06/20, normal as per pt. Cont f/u with GI (5 yrs) as per schedule. Flu - Pt declined. Tdap, Pneumo, Shingrix - At pharmacy/HD. F/u in 3 weeks. A1c in 07/24. Annual labs in 09/24. [email or web address] Not available 04/03/2025 10:51:47 05/01/2025 05/01/2025 69 yo M with - DDD C-SPINE - LT SHOULDER OA, moderate - LT SHOULDER PAIN, chronic - CERVICAL RADICULOPATHY - PRE-DM - HYPERBILIRUBINEM IA, resolved - ELEVATED BP, stable - HLD - HTG - GERD - SEASONAL ALLERGIC RHINITIS - B/L HEARING LOSS, chronic HbA1c: 6.0(09/14/24) - 6.0(12/21/24) - 6.0(03/27/25) X-ray Lt clavicle, Lt shoulder, c-spine: 04/03/25. X-ray L-spine, SI joints, Rt hip: 11/29/24. Annual labs: 09/14/24. Annual labs: 09/14/23. CXR: 04/08/23. HbA1c, H pylori: 03/12/23. D/w pt in detail about his conditions, recent labs & imagines and further plan of care. Will refer pt to PT. Pt declined for any new med. Meds as directed. Ice pack as directed prn. Diet and exercise explained. BP diary education given and call us if any concerns. Cont f/u with ENT at [facility] as per schedule. Cont f/u with Ophtho as per schedule. Cont f/u with GI as per schedule. HM: Colonoscopy - 06/20, normal as per pt. Cont f/u with GI (5 yrs) as per schedule. Flu - Pt declined. Tdap, Pneumo, Shingrix - At pharmacy/HD. F/u in 1-2 months. A1c in 07/24. Annual labs in 09/24. [email or web address] Not available 05/01/2025 10:25:40 05/31/2025 05/31/2025 69 yo M with - DDD C-SPINE - LT SHOULDER OA, moderate - LT SHOULDER PAIN, chronic - CERVICAL RADICULOPATHY - PRE-DM - HYPERBILIRUBINEM IA, resolved - ELEVATED BP, stable - HLD - HTG - GERD - SEASONAL ALLERGIC RHINITIS - B/L HEARING LOSS, chronic HbA1c: 6.0(09/14/24) - 6.0(12/21/24) - 6.0(03/27/25) X-ray Lt clavicle, Lt shoulder, c-spine: 04/03/25. X-ray L-spine, SI joints, Rt hip: 11/29/24. Annual labs: 09/14/24. Annual labs: 09/14/23. CXR: 04/08/23. HbA1c, H pylori: 03/12/23. D/w pt in detail about his conditions, recent labs & imagines and further plan of care. Will refer pt for MRI and Ortho. Pt declined for any new med. Meds as directed. Cont Ice pack as directed prn. Diet and exercise explained. BP diary education given and call us if any concerns. F/u with Ortho as per schedule. Cont f/u with ENT at [facility] as per schedule. Cont f/u with Ophtho as per schedule. Cont f/u with GI as per schedule. HM: Colonoscopy - 06/20, normal as per pt. Cont f/u with GI (5 yrs) as per schedule. Flu - Pt declined. Tdap, Pneumo, Shingrix - At pharmacy/HD. F/u in 1.5 months. A1c in 07/24. Annual labs in 09/24. [email or web address] Not available 05/31/2025 11:10:24 06/20/2025 06/20/2025 69-year-old male presents for evaluation of his left shoulder. 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 He has a history of a clavicle fracture many years ago but now reports pain over his AC joint. This is worse with lifting overhead motions and reaching out to the side. He also complains of numbness and tingling in the hands that radiates down from his neck all the way down the arm. This has been going on for several months, getting progressively worse. He denies having any acute injury. He has tried a course of physical therapy in the past which did not help. He also has a history of a carpal tunnel release done in 2014. He is right-hand dominant. Review of systems per patient questionnaire Physical exam: he has tenderness palpation over the AC joint and also over the biceps. Range of motion 140/30/lower lumbar. He has 5/5 strength with internal external rotation elevation, negative Yolis. Positive Hamlin's and AC compression. Positive Neer and Meyer. Negative Spurling's. Positive Tinel's at the elbow and wrist, positive Phalen's X-rays of the shoulder were reviewed, demonstrating AC arthrosis, preserved glenohumeral joint space He has AC arthritis as well as possible carpal and cubital tunnel. We will begin with a course of conservative management with meloxicam and physical therapy for his shoulder. He reports that he has an MRI scheduled for later this week already. We will also order an EMG to confirm the diagnosis for his peripheral neuropathy. We will have him follow up in 6 weeks, or sooner as needed. Can discuss a cortisone injection for the shoulder or AC joint at that point if still symptomatic. [email or web address] Not available 06/20/2025 11:59:51 Plan of Treatment Reminders Order Date Submit Date Provider Last Modified By Organization Details Last Modified Time Details Appointments Any 15 2024 08:30A M Tyrone Burk MD Not available Not available Not available Any 5 2024 08:30A M Garret Retana MD Not available Not available Not available Lab glycohemo globin, total, blood 2024 025 [facility] (Lab), [address] [place], [address], 06/23/2025 03:02:23 glycohemo globin, total, blood [address] (Lab), [address] [place], [address], 03/30/2025 09:32:50 lipid panel, serum 2024 025 [facility] (Lab), [address] [place], [address], 03/28/2025 03:35:58 Referral physical therapist referral - Please see patient for L shoulder, work on ROM and strengthe kyung. Thanks 2024 025 [email or web address] [facility], [address] [place] [address], [place], [address], 06/21/2025 12:49:51 orthopedi c surgeon referral - Please call patient to schedule an appointme nt. Thank you. 2024 025 [facility], [address], [place], [address], 06/20/2025 12:01:09 physical therapist referral - Chronic neck and Lt shoulder pain, OA ++, x-rays done. 2024 025 [email or web address] [facility], [address] [place] [address], [place], [address], 06/05/2025 14:48:30 Procedures nerve conductio n study/EMG , upper extremity (PROC) - Left upper extremity 2024 [email or web address] [facility], [address] [place] [address], [address] [place] [address], [address], 06/21/2025 12:49:51 Surgeries None recorded. Imaging MRI, cervical spine, w/o contrast - Please call patient to schedule. Note from provider: Chronic neck pain with Lt UE tingling & numbness, x-ray, meds and PT done. 2024 [facility], [address] [place] [address] , [address], [place], [address], 05/31/2025 15:02:00 MRI, shoulder, w/o contrast - Please call patient to schedule. 2024 [facility], [address] [place] [address] , [address], [place], [address], 05/31/2025 15:02:00 XR, shoulder, 2 or more view 2024 [facility], [facility] [address] [place] [address], [address], 04/06/2025 08:35:38 XR, clavicle 2024 [email or web address] [facility], [facility] [address] [place] [address], [address], 04/09/2025 10:47:23 XR, cervical spine, 4 or 5 view 2024 [facility], [facility] [address] [place] [address], [address], 04/06/2025 08:34:42 Medication Orders meloxicam 15 mg tablet 2024 [email or web address], [address] [facility], [place], [place], [id number], 06/21/2025 12:49:51 fenofibra te 54 mg tablet 2024 [facility], [address] [place] [address], [address], 05/31/2025 11:04:10 atorvasta tin 10 mg tablet 2024 [facility], [address] [place], [address], 05/31/2025 11:04:11 fenofibra te 54 mg tablet [email or web address] [facility] [address] [place] [address], [address], 05/01/2025 10:15:17 atorvasta tin 10 mg tablet 2024 [facility], [address] [place] [address], [address], 05/01/2025 10:15:06 fenofibra te 54 mg tablet 2024 [facility] [address] [place], [address], 04/03/2025 10:42:43 atorvasta tin 10 mg tablet 2024 025 [facility], [address] [place] [address], [address], 04/03/2025 10:42:43 Medrol (Christian) 4 mg tablets in a dose pack 2024 025 [email or web address] [facility], [address], [place], [id number], 06/20/2025 09:21:15 fenofibra te 54 mg tablet 2024 025 [facility] [address] [place], [address], 01/02/2025 10:04:59 atorvasta tin 10 mg tablet 2024 025 [facility]6047, [address] [place], [address], 01/02/2025 10:04:58 Patient TargetsNo targets recorded. Patient Instructions Encounter Date Encounter Id Patient Instructions Last Modified By Organization Details Last Modified Time 01/02/2025 [id number] dash diet: care instructions [email or web address] Not available 01/02/2025 10:04:55 learning about high blood pressure [email or web address] Not available 01/02/2025 10:04:55 prediabetes: car e instructions [email or web address] Not available 01/02/2025 10:04:55 high cholesterol : care instructions [email or web address] Not available 01/02/2025 10:04:55 04/03/2025 [id number] dash diet: care instructions [email or web address] Not available 04/03/2025 10:42:40 learning about high blood pressure [email or web address] Not available 04/03/2025 10:42:40 prediabetes: car e instructions [email or web address] Not available 04/03/2025 10:42:40 high cholesterol : care instructions [email or web address] Not available 04/03/2025 10:42:40 05/01/2025 [id number] dash diet: care instructions [email or web address] Not available 05/01/2025 10:15:01 learning about high blood pressure [email or web address] Not available 05/01/2025 10:15:01 prediabetes: car e instructions Not available 05/01/2025 10:15:00 high cholesterol : care instructions [email or web address] Not available 05/01/2025 10:15:00 05/31/2025 [id number] dash diet: care instructions Not available 05/31/2025 11:04:07 learning about high blood pressure [email or web address] Not available 05/31/2025 11:04:07 prediabetes: car e instructions [email or web address] Not available 05/31/2025 11:04:07 high cholesterol : care instructions Not available 05/31/2025 11:04:07 Reason for Referral Physical Therapist Referral for Chronic pain of left upper limb Chronic neck and Lt shoulder pain, OA ++, x-rays done. Referring Physician: Tyrone Burk, [facility], Encounter Date: 05/01/2025 Orthopedic Surgeon Referral for Chronic pain of left upper limb Please call patient to schedule an appointment. Thank you. Referring Physician: Tyrone Burk, [facility], Encounter Date: 05/31/2025 Physical Therapist Referral for Pain of left shoulder region L shoulder Please see patient for L shoulder, work on ROM and strengthening. Thanks Referring Physician: Garret Retana, Orthopedic Surgery, Encounter Date: 06/20/2025 Results Created Date Observation Date Name Description Value Unit Range Abnormal Flag Note LastModifiedBy Organization Detail LastModifiedTime 03/27/2003/28/2025 LIPID PANEL , STAND HUGO cholesterol, total 148 mg/dL <200 normal Not Available [address] [address] [place], [address], 03/28/2025 03:35:58 03/27/2003/28/2025 LIPID PANEL , STAND HUGO HDL cholesterol 39 mg/dL > or = 40 low Not Available [facility] [address] [address] [place], [address], 03/28/2025 03:35:58 03/27/2003/28/2025 LIPID PANEL , STAND HUGO triglyceride s 94 mg/dL <150 normal Not Available [facility] [address] [address] [place], [address], 03/28/2025 03:35:58 03/27/2003/28/2025 LIPID PANEL , STAND HUGO LDL-choleste rol 90 mg/dL _(laci c) normal Refer ence range : <100 Richelle able range <100 mg/dL for prima ry preve ntion ; <70 mg/dL for patie nts with CHD or diabe tic patie nts with > or = 2 CHD risk facto rs. LDL-C is now calcu lated using the Merlene n-Hop kins calcu tres n, which is a valid ated novel metho d provi sandor campo r accur acy than the Fried sammie equat ion in the estim ation of LDL-C . Merlene n SS et al. CAROLINE. 2013; 310(1 9): 2061- 2068 (http ://ed ucati on.Hawk connolly HereOrThere. com/f aq/FA Q164) Not Available [facility] [address] [address] [place], [address], 03/28/2025 03:35:58 03/27/2003/28/2025 LIPID PANEL , STAND HUGO chol/HDLC ratio 3.8 (calc ) <5.0 normal Not Available [facility] [address] [place], [address], 03/28/2025 03:35:58 03/27/2003/28/2025 LIPID PANEL , STAND HUGO non HDL cholesterol 109 mg/dL _(laci c) <130 normal For patie nts with diabe igor plus 1 major ASCVD risk facto r, treat ing to a non-H DL-C goal of <100 mg/dL (LDL- C of <70 mg/dL ) is consi dered a thera peuti c optio n. Not Available [facility] [address] [address] [facility] [place], [address], 03/28/2025 03:35:58 03/27/2003/28/2025 HEMOG LOBIN A1C hemoglobin A1C 6.0 %_of_ total _HGB <5.7 high For someo ne witho ut known diabe igor, a hemog lobin A1c value betwe en 5.7% and 6.4% is consi stent with predi abete s and shoul d be confi rmed with a follo w-up test. For someo ne with known diabe igor, a value <7% indic ates that their diabe igor is well contr olled . A1c targe ts shoul d be indiv idual ized based on durat ion of diabe igor, age, comor bid condi tions , and other consi derat ions. This assay resul t is consi stent with an incre ased risk of diabe igor. Curre ntly, no conse nsus exist s regar ding use of hemog lobin A1c for diagn osis of diabe igor for child rylie. Not Available [facility] [address] [address], [place], [address], 03/28/2025 03:35:59 04/06/20 25 04/03/2025 XR, cervi laci spine , 4 or 5 view No observ ation record ed. [address] [facility], [place], [address], 05/01/2025 10:12:53 04/06/2004/03/2025 XR, shoul ana m, 2 or more view No observ ation record ed. [address] [facility], [place], [address], 05/01/2025 10:12:53 04/06/20 25 04/03/2025 XR, cervi laci spine , 4 or 5 view No observ ation record ed. [address] [facility], [place], [address], 05/01/2025 10:12:53 04/07/2004/03/2025 XR, clavi jermain No observ ation record ed. [address] [place] [address] Route [facility], [place], [address], 05/01/2025 10:12:53 Result Notes None recorded. Problems Name Problem SNOMED Code Status Onset Date Resolution Date Notes Provider Name and Address Organization Details Recorded Time Elevated blood-press ure reading without diagnosis of hypertensio n 429247097 Active 2022 Tyrone Burk MD [address], [place], [address], [facility] [employer] 10:54:27 Gastroesoph ageal reflux disease without esophagitis 861962352 Active 2022 Tyrone Burk MD [address], [place], [address], [facility] [employer] 5 10:54:27 Bronchitis 10332473 Active 2022 Tyrone Burk MD [address], [place], [address], [facility] [employer] [facility] [employer] [facility] 3 12:28:15 Sinusitis 80501263 Active 2022 Tyrone Burk MD [address], [place], [address], [facility] [place] [employer] [facility] [employer] [facility] 3 17:24:53 Cough 57593931 Active 2022 Tyrone Burk MD [address], [place], [address], [id number] [facility] [employer] [facility] 3 17:25:21 Seasonal allergic rhinitis 289287601 Active 2022 Tyrone Burk MD [address], [place], [address], [facility] [employer] [facility] [employer] [facility] 5 10:54:27 Sensorineur al hearing loss of bilateral ears 707294971 Active 2023 Tyrone Burk MD [address], [place], [address], [facility] [employer] [facility] [employer] [facility] 5 10:54:28 Hyperlipide vladimir 64136166 Active 2023 Tyrone Burk MD [address], [place], [address], [facility] [employer] [facility] [employer] [facility] 5 10:54:27 Hypertrigly ceridemia 222277245 Active 2023 Tyrone Burk MD [address], [place], [address], [facility] [employer] [facility] [employer] [facility] 5 10:54:27 Eruption 264537602 Active 2023 Tyrone Burk MD [address], [place], [address], [facility] [employer] [facility] [employer] [facility] 4 16:37:07 Tinea corporis 19063105 Active 2023 Tyrone Burk MD [address], [place], [address], [facility] [employer] 4 16:37:25 Sore throat 805793010 Active 2023 TASIA Sparrow [address], [place], [address], [facility] [employer] 4 11:04:30 Chronic cough 86184355 Active 2023 TASIA Sparrow [address], [place], [address], [facility] [employer] 4 11:07:28 Acute sinusitis 37150600 Active 2023 TASIA Sparrow [address], [place], [address], [facility] [employer] 4 09:11:16 Impacted cerumen of bilateral ears 5644610292445 108 Active 2024 Tyrone Burk MD [address], [place], [address], [facility] [employer] [facility] [employer] 5 11:18:51 Prediabetes 430084433 Active 2024 Tyrone Burk MD [address], [place], [address], [facility] [employer] [facility] [employer] 5 10:54:27 Hyperbiliru binemia 83459052 Active 2024 Tyrone Burk MD [address], [place], [address], [facility] [place] [facility] [employer] 5 10:54:27 Chronic low back pain 340003582 Active 2024 Tyrone Burk MD [address], [place], [address], [facility] [employer] 5 11:08:39 Pain of right hip joint 7735089769892 02 Active 2024 Tyrone Burk MD [address], [place], [address], [facility] 5 11:09:06 Lumbar spondylosis 559438986 Active 2024 Tyrone Burk MD [address], [place], [address], [facility] [facility] 5 10:36:27 Degeneratio n of lumbar interverteb ral disc 30397965 Active 2024 Tyrone Burk MD [address], [place], [address], [facility] 5 10:36:34 Chronic pain of left upper limb 5593875427415 9103 Active 2024 Tyrone Burk MD [address], [place], [address], [id number] [facility] 5 10:43:02 Left cervical root neuropathy 1516270672942 9106 Active 2024 Tyrone Burk MD [address], [place], [address], [facility] [facility] 5 10:44:23 Degeneratio n of cervical interverteb ral disc 99631107 Active 2024 Tyrone Burk MD [address], [place], [address], [facility] [employer] [facility] 5 10:25:51 Osteoarthri tis of joint of left shoulder region 8101193349215 08 Active 2024 Tyrone Burk MD [address], [place], [address], [facility] 5 10:26:04 Pain of left shoulder region Active 2024 BELLA Bahena null, [facility] 09:24:14 Problem Notes Documentation Provider Name and Address Organization Details Recorded Time Orthopedic Surgeon Consult Note : [facility] [address] [facility] [place] [address]ANNPTTW, Salvatore (id #[id number], : 1955) Documents sent via fax will include the following message: This fax may contain sensitive and confidential personal health information that is being sent for the sole use of the intended recipient. Unintended recipients are directed to securely destroy any materials received. You are hereby notified that the unauthorized disclosure or other unlawful use of this fax or any personal health information is prohibited. To the extent patient information contained in this fax is subject to 42 CFR Part 2, this regulation prohibits unauthorized disclosure of these records. If you received this fax in error, please visit [email or web address] to notify the sender and confirm that the information will be destroyed. If you do not have internet access, please call to notify the sender and confirm that the information will be destroyed. Thank you for your attention and cooperation. [ID:[id number]] , Date: 06/20/2025RE: Marcel Rg MD, I would like to thank you for referring Salvatore Filemon to me for consultation and evaluation of Left Shoulder Pain , on 06/20/2025. I have enclosed a copy of the office assessment and plan for your records. Once again, thank you for allowing me to participate in the care of this patient. Sincerely, Electronically Signed by: GARRET RETANA MD Assessment/[id number] d male presents for evaluation of his left shoulder. 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 He has a history of a clavicle fracture many years ago but now reports pain over his AC joint. This is worse with lifting overhead motions and reaching out to the side. He also complains of numbness and tingling in the hands that radiates down from his neck all the way down the arm. This has been going on for several months, getting progressively worse. He denies having any acute injury. He has tried a course of physical therapy in the past which did not help. He also has a history of a carpal tunnel release done in 2014. He is right-hand dominant. Review of systems per patient questionnaire Physical exam: he has tenderness palpation over the AC joint and also over the biceps. Range of motion 140/30/lower lumbar. He has 5/5 strength with internal external rotation elevation, negative Yolis. Positive Hamlin's and AC compression. Positive Neer and Meyer. Negative Spurling's. Positive Tinel's at the elbow and wrist, positive Phalen's X-rays of the shoulder were reviewed, demonstrating AC arthrosis, preserved glenohumeral joint space He has AC arthritis as well as possible carpal and cubital tunnel. We will begin with a course of conservative management with meloxicam and physical therapy for his shoulder. He reports that he has an MRI scheduled for later this week already. We will also order an EMG to confirm the diagnosis for his peripheral neuropathy. We will have him follow up in 6 weeks, or sooner as needed. Can discuss a cortisone injection for the shoulder or AC joint at that point if still symptomatic. 1.Left shoulder pain, unspecified [id number]: Pain in left shoulder meloxicam 15 mg tablet - Take 1 tablet(s) every day by oral route. Qty: (30) tablet Refills: 2 Pharmacy: [id number] PHYSICAL THERAPIST REFERRAL - Schedule Within: provider's discretion Note to Provider: Please see patient for L shoulder, work on ROM and strengthening. Thanks Reason for Referral: L shoulder Evaluate & Treat: Per PT Side: LEFT # of requested visits: 12 NERVE CONDUCTION STUDY/EMG, UPPER EXTREMITY (PROC) - Note to Provider: Left upper extremity Side: LEFT Anatomical Site: upper extremity Return to Office Tyrone Burk MD for Any 15 at [facility] on 07/25/2025 at 08:30 AM Garret Retana MD for Any 5 at [facility] on 08/01/2025 at 08:30 AM to see Tyrone Burk MD for Physical/Annual Wellness 30 at [facility] on or around 09/13/2025 Not Available [employer] 06/20/2025 12:01:14 Procedures Surgical History Date Name Laterality Status Provider Name and Address Organization Details Recorded Time 5 Ear Irrigation completed Tyrone Burk MD [address], [facility] [address], [place], [address], [facility] [employer] [facility] 10/04/2024 10:35:45 2 colonoscopy completed Kierra Alberts RN [facility] [employer] [facility] 03/10/2023 11:49:11 5 Carpal tunnel surgery completed Kierra Alberts RN [facility] [employer] [facility] 03/10/2023 11:45:17 4 Carpal tunnel surgery completed Kierra Alberts RN [facility] [employer] [facility] 03/10/2023 11:45:01 0 vasectomy completed Kierra Alberts RN [facility] [employer] [facility] 03/10/2023 11:44:13 Imaging Results None recorded. Procedure Notes None recorded. Medical Equipment None Reported. Allergies No known drug allergies Medications Name Sig Start Date Stop Date Status Note LastModified by Organization Details LastModified Time cyclobenzap rine 10 mg tablet Take 1 tablet every 12 hours by oral route as needed for 30 days. 06/20 completed Not Available Not Available Not Available amoxicillin 500 mg capsule TAKE 1 CAPSULE BY MOUTH 3 TIMES A DAY UNTIL FINISHED 03/10 completed Not Available Not Available Not Available latanoprost 0.005 % eye drops INSTILL 1 DROP INTO BOTH EYES AT BEDTIME 06/20 completed Not Available Not Available Not Available prednisone 10 mg tablet TAKE 1 [...] Not Available Not Available Not Available meloxicam 15 mg tablet Take 1 tablet every day by oral route. 2024 active Not Available Not Available Not Avai lable prednisone 20 mg tablet TAKE 3 TABLETS BY MOUTH DAILY FOR 3 DAYS, 2 TABS DAILY FOR 2 DAYS, 1 TAB DAILY FOR 2 DAYS 08/11 completed Not Available Not Available Not Available Debrox 6.5 % ear drops INSTILL 4 DROPS INTO AFFECTED EAR(S) BY OTIC ROUTE 2 TIMES PER DAY 01/02 completed Not Available Not Available Not Available metronidazo le 500 mg tablet TAKE [...] THE MORNING AND EVENING X 2 WEEKS 06/20 completed Not Available Not Available Not Available diclofenac sodium 75 mg tablet,roro yed release Take 1 tablet every 12 hours by oral route as needed for 30 days. 06/20 completed Not Available Not Available Not Available ranitidine 150 mg capsule 01/18 completed Not Available Not Available Not Available azelastine 137 mcg (0.1 %) nasal spray ADMINISTE R 1 SPRAY IN EACH NOSTRIL TWICE A DAY 06/20 completed Not Available Not Available Not Available methylpredn isolone 4 mg tablets in a dose pack DIRECTED 06/20 completed Not Available Not Available Not Available albuterol sulfate HFA 90 mcg/actuati on aerosol inhaler INHALE 2 PUFFS EVERY 4 HOURS FOR 15 DAYS 06/20 completed Not Available Not Available Not Available fluticasone propionate 50 mcg/actuati on nasal spray,suspe nsion 1 SPRAY INTRANASA LLY TWICE A DAY ADMINISTE R INTO EACH NOSTRIL 06/20 completed Not Available Not Available Not Available amoxicillin 875 mg-potassiu m clavulanate 125 [...] 1 TABLET BY MOUTH EVERY DAY DIRECTED 06/20 completed Not Available Not Available Not Available fenofibrate 54 mg tablet Take 1 tablet every day by oral route in the morning for 90 days. 2024 active Not Available Not Available Not Avai lable Vitals Date Recorded Body height Body mass index (BMI) Body weight Body temperature Oxygen saturation Oxygen saturation in Arterial blood by Pulse oximetry Heart rate Systolic And Diastolic Provider Name and Address Organization Details Last Updated DateTime 5 175.26 cm 24.4 kg/m2 41671.8 9 g 97.5 [degF] 98 % 98 % 74 /min 140/80 mm[Hg] Sheila Brown RN [facility] [employer] 5 09:57:23 Date Recorded Body height Body mass index (BMI) Body weight Body temperature Oxygen saturation Oxygen saturation in Arterial blood by Pulse oximetry Heart rate Systolic And Diastolic Provider Name and Address Organization Details Last Updated DateTime 5 175.26 cm 23.8 kg/m2 12570.4 7 g 98.1 [degF] 95 % 95 % 56 /min 140/70 mm[Hg] Sheila Brown RN [facility] [employer] 10:40:39 Date Recorded Body height Body mass index (BMI) Body weight Body temperature Oxygen saturation Oxygen saturation in Arterial blood by Pulse oximetry Heart rate Systolic And Diastolic Provider Name and Address Organization Details Last Updated DateTime 175.26 cm 23.9 kg/m2 48116.3 1 g 97.4 [degF] 99 % 99 % 65 /min 130/70 mm[Hg] Sheila Brown RN [facility] [employer] [facility] 10:10:38 Date Recorded Body height Body mass index (BMI) Body weight Body temperature Oxygen saturation Oxygen saturation in Arterial blood by Pulse oximetry Heart rate Systolic And Diastolic Provider Name and Address Organization Details Last Updated DateTime 175.26 cm 23.8 kg/m2 46847.1 2 g 98 [degF] 96 % 96 % 57 /min 120/64 mm[Hg] Sheila Brown RN [facility] [employer] [facility] 10:59:04 Date Recorded Body height Body mass index (BMI) Body weight Pain severity - 0-10 verbal numeric rating [Score] - Reported Provider Name and Address Organization Details Last Updated DateTime 06/20/2025 175.26 cm 25 kg/m2 68019.11 g 6 Chelsea Gunter Allen [facility] [employer] [facility] 06/20/2025 09:19:48 Social History Question Answer Notes LastModified by Organization Details LastModified Time Tobacco Smoking Status Never Smoker Kierra Alberts RN [facility] [employer] [facility] 03/10/2023 11:46:10 Do You Have An Advance Directive? No Information not available 03/10/2023 Are You Blind Or Do You Have Difficulty Seeing? No Information not available 03/10/2023 Is Blood Transfusion Acceptable In An Emergency? Yes Information not available 03/10/2023 What Is Your Level Of Caffeine Consumption? Moderate Soda-coke, And Sunkist [place] [id number] Information not available 09/13/2024 In The 14 Days Before Symptom Onset, Have You Had Close Contact With A [facility] While That Case Was Ill? No Information not available 08/11/2024 In The 14 Days Before Symptom Onset, Have You Had Close Contact With A Person Who Is Under Investigation For COVID-19 While That Person Was Ill? No Information not available 08/11/2024 Are You Deaf Or Do You Have [...] Do You Have A Medical Power Of [employer]? No Information not available 03/10/2023 What Was The Date Of Your Most Recent Tobacco Screening? 06/20/2025 Information not available 06/20/2025 Do You Have Any Pets? Yes Information [...] Traveled Abroad? No Information not available 08/11/2024 Do You Have Difficulty Walking Or Climbing Stairs? No Information not available 03/10/2023 Sex: Unknown Functional Status Question Answer Note LastModified by Organizat ion Details LastModified Time What is your level of alcohol consumption? None Information not available 03/10/2023 Are you currently employed? No Information not available 03/10/2023 Do you have transportation difficulties? No Information not available 03/10/2023 Are you able to walk independently without assistance or assistive devices? YESWOREST Information not available 03/10/2023 Do you have difficulty doing errands alone? No Information not available 03/10/2023 Are you able to care for yourself independently? Yes Information not available 03/10/2023 Do you have difficulty dressing, bathing, grooming, or toileting? No Information not available 03/10/2023 What is your exercise level? None Information not available 03/10/2023 Mental Status Question Answer Note LastModified by Organizat ion Details LastModified Time Do you feel stressed (tense, restless, nervous, or anxious, or unable to sleep at night)? [id number] Information not available 03/10/2023 Do you have difficulty concentrating, remembering or making decisions? No Information no t available 03/10/2023 Family History Relationship Description Onset Age of this Age Resolved Age Notes LastModified by Organization Details LastModified Time Sister Diabetes mellitus [email or web address] Not available 2024 09:21:37 Medical History Condition Response BLINDNESS N RHEUMATIC [...] VISION/EYE PROBLEMS N LIVER DISEASE N HYPERTENSION Y TOURETTE'S N ANXIETY DISORDER N BLOOD TRANSFUSION N ANEMIA/BLOOD DISORDER N CHRONIC EAR INFECTIONS N BRONCHITIS N TUBERCULOSIS N GLAUCOMA N FOOT PROBLEM N DIVERTICULITIS N SLEEP APNEA N CHICKENPOX N BACK INJECTIONS N ALLERGIES/HAYFEVER N INFECTIOUS DISEASE N PROSTATE N HEART ARRHYTHMIA N INSOMNIA N ESRD N HIGH CHOLESTEROL / HYPERLIPIDEMIA N HYPERTHYROIDISM N EYE PROBLEMS N PVD N EATING DISORDER N EDEMA N CHRONIC PAIN SYNDROME N CONSTIPATION N CAROTID BLOCKAGE N BACK / NECK PROBLEMS N HAVE YOU BEEN HOSPITALIZED OR SEEN IN [facility] ER IN THE PAST YEAR ? N ATHEROSCLEROSIS [...] DISORDER N ALZHEIMER'S DISEASE N PAIN N HERPES N DEMENTIA N SEIZURES/EPILEPSY N HEADACHES/MIGRAINES N VASCULAR DISEASE N PACEMAKER N DIZZINESS N KIDNEY DISEASE N HEART DISEASE/HEART PROBLEMS N SCARLET FEVER N MULTIPLE SCLEROSIS N MENTAL DISORDER/ILLNESS N DEVELOPMENTAL OR BEHAVIORAL DISORDERS N NEUROPSYCHOLOGICAL N CARDIAC ARRHYTHMIA N CANCER: SPECIFY N PNEUMONIA N Gall Stones N ATRIAL FIBRILLATION N PULMONARY EMBOLISM N AUTOIMMUNE DISEASE N Past Encounters Encounter ID Performer Location Encounter Start Date Encounter Closed Date Diagnosis/Indication Diagnosis SNOMED-CT Code Diagnosis ICD10 Code Diagnosis IMO Codes Diagnosis Note [id number] Tyrone Burk MD [address] [address] 03/10/2023 11:28:43 03/10/2023 12:14:20 Adult health examination 372921120 Z00.00 Anemia screening 1730384 07 Z13.0 Diabetes m ellitus screening 839596575 Z13.1 Hyperlipid emia screening 759249450 Z13.220 Nephropathy screening 17 2068463 Z13.89 Screening for malignant neoplasm of prostate 865746241 Z12.5 Thyroid di sorder screening 882849414 Z13.29 Elevated blood-pressure reading without diagnosis of hypertension 840015113 R03.0 Gastroesop hageal reflux disease without esophagitis 746219461 K21.9 [id number] Tyrone Burk MD [facility] [address] 03/30/2023 12:07:15 03/30/2023 12:34:06 Elevated blood-pressure reading without diagnosis of hypertension 528233902 R03.0 Gastroesop hageal reflux disease without esophagitis 035956931 K21.9 Bronchitis 78380513 J40 [id number] Tyrone Burk MD [address] [address] 04/07/2023 17:10:53 04/07/2023 17:34:40 Sinusitis 48312916 J32.9 Cough 10232982 R05.9 Seasonal a llergic rhinitis 027574331 J30.2 [id number] Tyrone Burk MD [address] [address] 1 09/13/2023 12:16:51 09/13/2023 12:52:27 Gastroesophageal reflux disease without esophagitis 121931650 K21.9 Elevated blood-pressure reading without diagnosis of hypertension 866683085 R03.0 Anemia screening 6365981 07 Z13.0 Diabetes m ellitus screening 701395936 Z13.1 Hyperlipid emia screening 075555627 Z13.220 Nephropathy screening 17 5651596 Z13.89 Screening for malignant neoplasm of prostate 204544715 Z12.5 Seasonal a llergic rhinitis 200965590 J30.2 Sensorineu ral hearing loss of bilateral ears 823983053 H90.3 chronic Adult [facility] th examination 680047529 Z00.00 [id number] Tyrone Burk MD [address] [address] 09/14/2023 11:06:12 09/14/2023 17:39:16 [id number] Tyrone Burk MD [address] [address] 10/06/2023 10:49:41 10/06/2023 11:19:50 Gastroesophageal reflux disease without esophagitis 669054556 K21.9 Elevated blood-pressure reading without diagnosis of hypertension 527699439 R03.0 Seasonal a llergic rhinitis 242354313 J30.2 Sensorineu ral hearing loss of bilateral ears 251962984 H90.3 chronic Hyperlipidemia 39812187 E78.5 [id number] Tyrone Burk MD [address] [address] 01/27/2024 14:19:33 01/27/2024 14:44:45 Hyperlipidemia 25622914 E78.5 Gastroesop hageal reflux disease without esophagitis 588085868 K21.9 Elevated blood-pressure reading without diagnosis of hypertension 400538724 R03.0 Seasonal a llergic rhinitis 615847208 J30.2 Sensorineu ral hearing loss of bilateral ears 864447597 H90.3 chronic Hypertriglyceridemia 302 404109 E78.2 [id number] Tyrone Burk MD [address] [address] 1 04/18/2024 16:19:48 04/18/2024 17:02:26 Eruption 382820430 R21 Lt knee Tinea corporis 03248796 B35.4 [id number] Tyrone Burk MD [address] [address] 04/27/2024 17:15:58 04/27/2024 17:49:00 Hyperlipidemia 19317100 E78.5 Hypertriglyceridemia 302 101346 E78.2 Gastroesop hageal reflux disease without esophagitis 647421546 K21.9 Elevated blood-pressure reading without diagnosis of hypertension 162135694 R03.0 Seasonal a llergic rhinitis 996192236 J30.2 Sensorineu ral hearing loss of bilateral ears 267205470 H90.3 chronic History an d physical examination, pre-employment 671129922 Z02.1 [id number] Tyrone Burk MD [address] [address] 05/08/2024 09:40:06 05/08/2024 11:04:58 [id number] Tyrone Burk MD [address] [address] 05/17/2024 10:48:54 05/17/2024 11:18:24 Hyperlipidemia 85934413 E78.5 Hypertriglyceridemia 302 601396 E78.2 Gastroesop hageal reflux disease without esophagitis 498559681 K21.9 Elevated blood-pressure reading without diagnosis of hypertension 248822978 R03.0 Seasonal a llergic rhinitis 048486838 J30.2 Sensorineu ral hearing loss of bilateral ears 827148218 H90.3 chronic [id number] Tyrone Burk MD [address] [address] 08/11/2024 10:42:30 08/11/2024 11:12:57 Sore throat 554094946 J02.9 Cough 14749555 R05.9 Pt expresses concens with no abx prescripti on today, discussed abx stewardshi p, pt agreeable. [id number] Tyrone Burk MD [address] [address] 09/13/2024 10:48:29 09/13/2024 11:28:59 Hypertriglyceridemia 957015697 E78.2 Hyperlipidemia 44530267 E78.5 Gastroesop hageal reflux disease without esophagitis 918190109 K21.9 Elevated blood-pressure reading without diagnosis of hypertension 324869458 R03.0 Seasonal a llergic rhinitis 380334133 J30.2 Sensorineu ral hearing loss of bilateral ears 986069428 H90.3 chronic Screening for malignant neoplasm of prostate 263176765 Z12.5 Impacted c erumen of bilateral ears 6560974845 132705 H61.23 [id number] Tyrone Burk MD [address] [address] 09/14/2024 10:54:12 09/14/2024 16:16:11 [id number] Tyrone Burk MD [address] [address] 10/04/2024 10:19:51 10/04/2024 10:43:36 Hypertriglyceridemia 940068091 E78.2 Hyperlipidemia 96858803 E78.5 Gastroesop hageal reflux disease without esophagitis 118443560 K21.9 Elevated blood-pressure reading without diagnosis of hypertension 330687492 R03.0 Seasonal a llergic rhinitis 475701304 J30.2 Sensorineu ral hearing loss of bilateral ears 306841972 H90.3 chronic Impacted c erumen of bilateral ears 6095776545 482158 H61.23 Prediabetes 754242275 R7 3.03 Hyperbilirubinemia 21151 006 E80.6 [id number] Tyrone Burk MD [address] [address] 11/28/2024 10:50:55 11/28/2024 11:16:53 Chronic low back pain 009890065 M54.50 Pain of ri ght hip joint 2478612162 44288 M25.804 [id number] Tyrone Burk MD [address] [address] 12/12/2024 10:22:42 12/12/2024 10:38:18 Chronic low back pain 648966086 M54.50 Improved Pain of ri ght hip joint 7728102162 63000 M25.551 Resolved Lumbar spondylosis 93924 0009 M47.896 Pt declined for PT at this time. Degenerati on of lumbar intervertebral disc 64619045 M51.930 [id number] Tyrone Burk MD [address] [address] 12/21/2024 09:50:58 12/21/2024 10:09:08 [id number] Tyrone Burk MD [address] [address] 01/02/2025 09:50:44 01/02/2025 10:19:20 Prediabetes 618136169 R73.03 Hypertriglyceridemia 302 068615 E78.2 Hyperlipidemia 63747836 E78.5 Gastroesop hageal reflux disease without esophagitis 936015754 K21.9 Elevated blood-pressure reading without diagnosis of hypertension 714818271 R03.0 Seasonal a llergic rhinitis 398206023 J30.2 Sensorineu ral hearing loss of bilateral ears 636187135 H90.3 chronic Hyperbilirubinemia 47337 006 E80.6 resolved [id number] Tyrone Burk MD [place] [address] 1 04/03/2025 10:18:02 04/03/2025 10:51:58 Hyperbilirubinemia 77928740 E80.6 resolved Prediabetes 665825867 R7 3.03 Hyperlipidemia 90733288 E78.5 Hypertriglyceridemia 302 700988 E78.2 Elevated blood-pressure reading without diagnosis of hypertension 254915341 R03.0 Gastroesop hageal reflux disease without esophagitis 989019933 K21.9 Seasonal a llergic rhinitis 880590356 J30.2 Sensorineu ral hearing loss of bilateral ears 773507921 H90.3 chronic Chronic pa in of left upper limb 4509298314 6218614 M25.512 G89.29 061376 Left cervi laci root neuropathy 7412053066 1386521 M54.12 19427424 [id number] Tyrone Burk MD [place] [address] 1 05/01/2025 09:47:21 05/01/2025 12:06:42 Hyperlipidemia 17316270 E78.5 Hypertriglyceridemia 302 543303 E78.2 Prediabetes 081951314 R7 3.03 Hyperbilirubinemia 58694 006 E80.6 resolved Elevated blood-pressure reading without diagnosis of hypertension 281721471 R03.0 Gastroesop hageal reflux disease without esophagitis 934615225 K21.9 Seasonal a llergic rhinitis 894178419 J30.2 Sensorineu ral hearing loss of bilateral ears 861410859 H90.3 chronic Chronic pa in of left upper limb 9894989144 1411248 M25.512 G89.29 687477 Left cervi laci root neuropathy 2926851640 2837961 M54.12 47708608 Degenerati on of cervical intervertebral disc 57183890 M50.30 785795 Osteoarthr itis of joint of left shoulder region 9832972445 25556 M19.127 3059317 [id number] Tyrone Burk MD [facility] [address] [place] [address] 05/31/2025 10:51:11 05/31/2025 11:13:49 Chronic pain of left upper limb 2725551433 6595669 M25.512 G89.29 793419 Left cervi laci root neuropathy 9929989655 9110336 M54.12 75901273 Hyperlipidemia 49718750 E78.5 Hypertriglyceridemia 302 345224 E78.2 Prediabetes 396214022 R7 3.03 Hyperbilirubinemia 92853 006 E80.6 resolved Elevated blood-pressure reading without diagnosis of hypertension 518650381 R03.0 Gastroesop hageal reflux disease without esophagitis 858396880 K21.9 Seasonal a llergic rhinitis 782703001 J30.2 Sensorineu ral hearing loss of bilateral ears 960341212 H90.3 chronic Degenerati on of cervical intervertebral disc 38085356 M50.30 968564 Osteoarthr itis of joint of left shoulder region 2041094692 81282 M19.218 [id number] Garret Retana MD [facility] [address] [place] [address] 06/20/2025 08:50:17 06/20/2025 09:50:37 Pain of left shoulder region 7472941039 M25.512 93640322 Health Concerns Section Related Observation LastModified by Organization Detai ls LastModified Time None Recorded Concern Status LastModified by Organization Details LastModified Time None Recorded Advance Directives Directive N: Payers Insurance Date Sequence Insurance Name Policy Number Policy Lemon Covered Member ID Lemon Member ID Guarantor Name 06/20/2025 1 [facility] [id number] Salvatore Colbert [id number] Salvatore Colbert 06/20/2025 1 [place] Salvatore Colbert [id number] Salvatore Colbert 06/20/2025 1 [facility] (MEDICARE REPLACEMENT/A DVANTAGE - HMO) [id number] Salvatore Colbert [id number] Salvatore Colbert 06/20/2025 2 [place] Salvatore Rutledgett [id number] Salvatore Colbert 06/20/2025 [facility] (MEDICARE REPLACEMENT/A DVANTAGE - HMO) [id number] Salvatore Hoyosgitt [id number] Salvatore Colbert 06/20/2025 1 [facility] (MEDICARE REPLACEMENT/A DVANTAGE - POS) [id number] Salvatore Colbert [id number] Salvatore Colbert Notes Date Note Type Note Provider Name and Address Organization Details Recorded Time 01/02/2025 text/html Pt is here for f/u on his labs and chronic conditions. Doing overall well. Denies any problem with meds. Denies any new concern. Pt is not checking his BP at home. No concern with it.Pt is f/u with ENT at for his chronic b/l hearing loss and he has hearing aids too. Tyrone Burk MD [address] [facility], [place] [address], [place], [address], [facility] 01/02/2025 10:12:39 04/03/2025 text/html FUV + ACV: C/o Lt shoulder area pain with Lt UE radiations for last few years, but for last few months, its bothering him more. Pt had injury about 50 yrs ago to his Lt clavicle, but no surgery needed at that time. No other area pain. Pt does lift heavy stuffs upto 50 lbs at his work, but denies any workman's comp. Pt is here for f/u on his labs and chronic conditions. Doing overall well. Denies any problem with meds. Pt is not checking his BP at home. No concern with it.Pt is f/u with ENT at for his chronic b/l hearing loss and he has hearing aids too. Tyrone Burk MD [address], [facility] [address], [place], [address], [facility] 04/03/2025 10:52:21 05/01/2025 text/html Pt is here for f/u on his x-rays and pain. Doing overall better. Denies any problem with meds. C/o Lt shoulder area pain with Lt UE radiations for last few years, but for last few months, its bothering him more. Pt had injury about 50 yrs ago to his Lt clavicle, but no surgery needed at that time. No other area pain. Pt does lift heavy stuffs upto 50 lbs at his work, but denies any workman's comp. Pt is not checking his BP at home. No concern with it.Pt is f/u with ENT at for his chronic b/l hearing loss and he has hearing aids too. Tyrone Burk MD [address] [facility], [facility] [address], [place], [address], [employer] 05/01/2025 10:26:28 05/31/2025 text/html Pt is here for f/u on his pain. Doing overall better. Denies any problem with meds. Denies any new concern. Pt has finished his his PT yesterday. Got little better with it. Still has pain, tingling & numbness ++. So he would like to go for more testing. C/o Lt shoulder area pain with Lt UE radiations for last few years, but for last few months, its bothering him more. Pt had injury about 50 yrs ago to his Lt clavicle, but no surgery needed at that time. No other area pain. Pt does lift heavy stuffs upto 50 lbs at his work, but denies any workman's comp. Pt is not checking his BP at home. No concern with it.Pt is f/u with ENT at for his chronic b/l hearing loss and he has hearing aids too. Tyrone Burk MD [address], [facility] [address], [place], [address], [facility] 05/31/2025 11:10:43
--- OUTSIDE RECORDS SUMMARY | 2025-06-23 09:21 | XMS_ITS | Clinical Summary ---
Author Organization [facility] Address [address] [place] [address] Care Team Providers Care Personal Injury Paralegal Name Role Phone Charito Ferrell PA-C Primary Care Provider [phone] Erich Parker MD Unavailable [phone] Allergies No known active allergies Medications [...] Ulcerative colitis without c omplications, unspecified location 06/05/2022 Overview (06/05/2022): Added automatically from request for surgery [id number] Screening for colon cancer 06/05/2022 Overview (06/05/2022): Added automatically from request for surgery [id number] Gastroesophageal reflux disease without esophagi tis 03/10/2021 Allergic rhinitis, unspecifi ed seasonality, unspecified trigger 03/10/2021 Resolved Problems Problem Noted Date Diagnosed Date Resolved Date Current moderate episode of major depressive disorder without prior episode 06/25/2021 2 Immunizations Immunization Administration Dates Next Due Pneumococcal (Pneumovax 23) 07/18/2021, 0 Shingrix 07/18/2021 Tdap (Boostrix) 06/13/2016 Zoster (Zostavax) 83235 Unt/0.65Ml 10/27/2015 Family History Medical History Relation [...] Job Start Date Job End Date [employer]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 Not on file Not on file [...] of 2 - PCV) 07/18/2022 07/18/2021, 07/18/2020 PHQ-2 (Physician [place]) 08/30/2024 COVID-19 Vaccine ( season) 2025 06/22/2023, 03/27/2022, 10/13/2021, Additional history exists Influenza Adult (#1) 2025 DTaP, Tdap and Td Vaccines (2 - Td or Tdap) 06/13/2026 06/13/2016 RSV Immunization or 60+ Years (1 - 1-dose 75+ series) 2029 Colorectal Cancer Screening Colonoscopy (10 Years) 06/25/2032 06/25/2022, 06/25/2022, 11/26/2016, Additional history exists Hepatitis C Completed 06/24/2022 Hepatitis A Vaccines Aged Out No long er eligible based on patient's age to complete this topic Meningococcal B Vaccine Aged Out No l [...] a test for HCV RNA (test code 88370) is suggested. For additional information, please refer to http://education.DNage/faq/GIE462 (This link is being provided for informational/ educational purposes only.) 06/24/2022 7:14 AM CDT 06/24/2022 7:16 AM CDT us Charito Ferrell PA-C LABORATORY Final Resu lt [facility] [id number] [address] [id number] * COLONOSCOPY GENERIC (11/26/2016) 11/26/2016 Narrative 11/26/2016 Ordered by an unspecified provider. 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. [address] [address] [employer] [employer] Former CARDIOVASCULAR DISEASE 07/30/18
--- OUTSIDE RECORDS SUMMARY | 2025-06-23 09:21 | XMS_ITS | Encounter Summary ---
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 Not on file Not on file [...] Results * CBC (OUTSIDE LAB) (06/21/2019) Pathologist [facility] WBC 4.1 HGB 15.3 HCT 47.2 PLT 179 06/21/2019 us Doc [facility] Abstract LAB-OUTSIDE/ABSTRACTED Final Result * THYROID STIM HORMONE, TSH (06/21/2019) Pathologist [facility] TSH 1.68 0.40 - 4.50 06/21/2019 us Doc [facility] Abstract LABORATORY Final Result * COMPREHENSIVE METABOLIC PANEL (06/21/2019) Pathologist [facility] SODIUM S/P/B 139 POTASSIUM S/P/B 4.4 CO2 [...] Final Result * LIPID PANEL (06/21/2019) Pathologist [facility] CHOLESTEROL 184 HDL 32 TRIGLYCERIDES 179 NON HDL CHOLESTEROL 152 LDL (CALCULATED) 122 06/21/2019 us Doc [facility] Abstract LABORATORY Final Result documented in this encounter Visit Diagnoses Not on filedocumented in this encounter Additional Health Concerns Infection Onset Date Last Indicated Resolved Time COVID-19 Rule Out 09/16/2021 09/16/2021 09/16/2021 1:43 PM OPEN CLAIMS REPRESENTATIVE COVID-19 Confirmed 09/16/2021 09/16/2021 2 12:32 AM OPEN CLAIMS REPRESENTATIVE documented as of this encounter Care Teams General Farmworker Relationship Specialty Start Date End Date Charito Ferrell PA-C [address] [place] [address]. [place] [address] PCP - General PHYSICIAN SOFTWARE DEVELOPER CONSULTANT 07/25/18 Erich Parker MD [facility]. [address] [address] [place] [employer] Wh[employer] CARDIOVASCULAR DISEASE 07/30/18 documented as of this encounter
== END 2025-06-23 09:15 | disposition home or self-care (01) ==
LOC: CHSIMG 09:18
PROVIDERS: PCP Family Medicine; Visit Provider Family Medicine
DX: M25.512 Pain in left shoulder (principal); M50.30 Other cervical disc degeneration, unspecified cervical region; G89.29 Other chronic pain; M19.012 Primary osteoarthritis, left shoulder; M77.8 Other enthesopathies, not elsewhere classified; S46.812A Strain of other muscles, fascia and tendons at shoulder and upper arm level, left arm, initial encounter; M75.22 Bicipital tendinitis, left shoulder; M43.02 Spondylolysis, cervical region
CPT/HCPCS: 72141; 73221

== ENCOUNTER 2025-08-27 16:26 | Emergency (ER) | payer MEDICARE, SELFPAY ==
--- NOTE | ~2025-08-27 | XR_ITS ---
EXAMINATION: XR chest 2V 08/27/2025 17:26 INDICATION: Cough for 8 days. Fever. PROCEDURE: 2 view chest COMPARISON: Comparison to multiple prior studies sequentially, with oldest reviewed study dated 10/02/2021. FINDINGS: The lungs are clear. The cardiomediastinal silhouette is within normal limits. There are no pleural effusions. There is no pneumothorax suspected. IMPRESSION: 1: NO ACUTE CARDIOPULMONARY DISEASE. Reviewed, dictated and finalized at location O. R OPERATOR
--- OUTSIDE RECORDS SUMMARY | 2025-08-27 16:29 | XMS_ITS | Continuity of Care Document ---
Author Organization [place] - [facility] Family [facility] Address [address] [address] Care Team Providers Care Hydraulics Teacher Name Role Phone TYRONE BURK Primary Care Provider [phone] TYRONE BURK Referring Provider TYRONE BURK Primary Care Provider Assessment Encounter Date Assessment Date Assessment LastModified by Organization Details LastModified Time 07/25/2025 07/25/2025 69 yo M with - CHEST TIGHTNESS - CERVICAL SPONDYLSOSIS, moderate - DDD C-SPINE - LT SHOULDER OA, moderate - LT SHOULDER PAIN, chronic - CERVICAL RADICULOPATHY - PRE-DM - HYPERBILIRUBINEM IA, resolved - ELEVATED BP, stable - HLD - HTG - GERD - SEASONAL ALLERGIC RHINITIS - B/L HEARING LOSS, chronic HbA1c: 6.0(09/14/24) - 6.0(12/21/24) - 6.0(03/27/25) - 5.6(07/19/25) MRI Lt shoulder wo: 06/23/25. MRI c-spine wo: 06/23/25. X-ray Lt clavicle, Lt shoulder, c-spine: 04/03/25. X-ray L-spine, SI joints, Rt hip: 11/29/24. Annual labs: 09/14/24. Annual labs: 09/14/23. CXR: 04/08/23. HbA1c, H pylori: 03/12/23. D/w pt in detail about his conditions, recent labs & imagines and further plan of care. Will refer pt to Cardio and Pain clinic. Pt declined for any new med at this time. Educated pt about alarming symptoms to monitor at home. Meds as directed. Risks Vs benefits of Aspirin 81mg po QOD with food explained. Pt agreed. Cont Ice pack as directed prn. Diet and exercise explained. BP diary education given and call us if any concerns. F/u with Cardio as per schedule. F/u with Pain clinic as per schedule. Cont f/u with Ortho as per schedule. Cont f/u with ENT at [facility] as per schedule. Cont f/u with Ophtho as per schedule. Cont f/u with GI as per schedule. HM: Colonoscopy - 06/20, normal as per pt. Cont f/u with GI (5 yrs) as per schedule. Flu - Pt declined. Tdap - 2018. Pneumo - 2021. Shingrix - Pt had 2 doses. F/u in 2 months. Annual labs in 09/24. [email or web address] Not available 07/25/2025 09:51:51 Plan of Treatment Reminders Order Date Submit Date Provider Last Modified By Organization Details Last Modified Time Details Appointments Physical/ Annual Wellness 30 2025 09:00A Mable Burk MD Not available Not available Not available Lab None recorded. Referral cardiolog ist referral - Please call patient to schedule an appointme nt. Thank you. 2024 025 [email or web address] [facility] Referral Fax Line, [address], [address], [place], [address], 08/27/2025 12:40:01 pain managemen t referral - Please call patient to schedule an appointme nt. Thank you. 2024 025 [email or web address] Mayra Hernandez MD, [address], [address], [place], [address], 08/27/2025 14:20:15 Procedures None recorded. Surgeries None recorded. Imaging None recorded. Medication Orders fenofibra te 54 mg tablet 2024 025 [facility]/Pharmacy #[id number], [address] [place], [address], 07/25/2025 09:38:54 atorvasta tin 10 mg tablet 2024 025 [facility]/Pharmacy #[id number], [address] [place], [address], 07/25/2025 09:38:54 Patient TargetsNo targets recorded. Patient Instructions Encounter Date Encounter Id Patient Instructions Last Modified By Organization Details Last Modified Time 07/25/2025 [id number] dash diet: care instructions [email or web address] Not available 07/25/2025 09:38:52 learning about high blood pressure [email or web address] Not available 07/25/2025 09:38:52 prediabetes: car e instructions Not available 07/25/2025 09:38:52 high cholesterol : care instructions [email or web address] Not available 07/25/2025 09:38:52 Reason for Referral Pain Management Referral for Cervical spondylosis Chronic neck pain, abnormal MRI c-spine wo. Please call patient to schedule an appointment. Thank you. Referring Physician: Tyrone Burk [facility], Encounter Date: 07/25/2025 Manifold Operator Referral for Ti ght chest Please call patient to schedule an appointment. Thank you. Referring Physician: Tyrone Burk [facility], Encounter Date: 07/25/2025 Results Created Date Observation Date Name Description Value Unit Range Abnormal Flag Note LastModifiedBy Organization Detail LastModifiedTime 07/19/20 25 07/19/2025 HEMOG LOBIN A1C hemoglobin A1C 5.6 %_of_ total _HGB <5.7 normal For the purpo se of navjot tracey for the prese nce of diabe igor: <5.7% Consi stent with the absen ce of diabe igor 5.7-6 .4% Consi stent with incre ased risk for diabe igor (pred iabet es) > or =6.5% Consi stent with diabe igor This assay resul t is consi stent with a decre ased risk of diabe igor. Curre ntly, no conse nsus exist s pedro patten use of hemog lobin A1c for diagn osis of diabe igor in child rylie. Accor ding to Ameri can Diabe igor Assoc iatio n (ADA) guide lines , hemog lobin A1c <7.0% repre sents optim al contr ol in non-p regna nt diabe tic patie nts. Diffe rent juan cs may apply to speci fic patie nt popul ation s. Stand ards of Medic al Care in Diabe igor(A DA). Not Available [facility] [address], [place], [address], 07/19/2025 16:46:39 06/24/2006/23/2025 MRI, cervi laci spine , w/o contr ast No observ ation record ed. [email or web address] [facility] [address] [place], [address], 07/25/2025 09:32:55 06/25/2006/23/2025 MRI, shoul ana m, w/o contr ast No observ ation record ed. [email or web address] [place] [address] [address] [place], [address], 07/25/2025 09:32:55 Result Notes None recorded. Problems Name Problem SNOMED Code Status Onset Date Resolution Date Notes Provider Name and Address Organization Details Recorded Time Elevated blood-press ure reading without diagnosis of hypertensio n 604284905 Active 2022 Tyrone Burk MD [address], [address], [place], [address], [employer] 5 10:54:27 Gastroesoph ageal reflux disease without esophagitis 865347294 Active 2022 Tyrone Burk MD [address], [address], [place], [address], [employer] 5 10:54:27 Bronchitis 01802770 Active 2022 Tyrone Burk MD [address], [address], [place], [address], [employer] 3 12:28:15 Sinusitis 82072247 Active 2022 Tyrone Burk MD [address], [address], [place], [address], [facility] [place] [facility] [facility] 3 17:24:53 Cough 40246160 Active 2022 Tyrone Burk MD [address], [address], [place], [address], [facility] [place] [facility] [employer] [facility] 3 17:25:21 Seasonal allergic rhinitis 767105298 Active 2022 Tyrone Burk MD [address], [address], [place], [address], [employer] [facility] [place] [facility] [employer] [facility] 5 10:54:27 Sensorineur al hearing loss of bilateral ears 052686065 Active 2023 Tyrone Burk MD [address], [place], [address], [employer] [facility] [place] [facility] [employer] [facility] 5 10:54:28 Hyperlipide vladimir 56212714 Active 2023 Tyrone Burk MD [address], [address], [place], [address], [employer] [facility] [place] [employer] [facility] 5 10:54:27 Hypertrigly ceridemia 975057235 Active 2023 Tyrone Burk MD [address], [place], [address], [employer] [facility] [place] [employer] [facility] 5 10:54:27 Eruption 358737197 Active 2023 Tyrone Burk MD [address], [address], [place], [address], [employer] [facility] [place] [employer] [facility] 4 16:37:07 Tinea corporis 71407564 Active 2023 Tyrone Burk MD [address], [address], [place], [address], [employer] [facility] [place] [employer] [facility] 4 16:37:25 Sore throat 437609297 Active 2023 TASIA Sparrow [address], [address], [place], [address], [place] [facility] 4 11:04:30 Chronic cough 36022373 Active 2023 TASIA Sparrow [address], [address], [place], [address], [place] [facility] 4 11:07:28 Acute sinusitis 69727016 Active 2023 TASIA Sparrow [address], [address], [place], [address], [place] [facility] 4 09:11:16 Impacted cerumen of bilateral ears 4672156885188 108 Active 2024 Tyrone Burk MD [address], [address], [place], [address], [place] [facility] 5 11:18:51 Prediabetes 191795167 Active 2024 Tyrone Burk MD [address], [address], [place], [address], [place] [facility] 5 10:54:27 Hyperbiliru binemia 63062493 Active 2024 Tyrone Burk MD [address], [address], [place], [address], [place] [facility] 5 10:54:27 Chronic low back pain 721393613 Active 2024 Tyrone Burk MD [address], [address], [place], [address], [place] [facility] 5 11:08:39 Pain of right hip joint 1276631782417 02 Active 2024 Tyrone Burk MD [address], [address], [place], [address], [place] [facility] 5 11:09:06 Lumbar spondylosis 703642261 Active 2024 Tyrone Burk MD [address], [address], [place], [address], [place] [facility] [place] [facility] 5 10:36:27 Degeneratio n of lumbar interverteb ral disc 54358500 Active 2024 Tyrone Burk MD [address], [place], [address], [place] [facility] [place] [facility] 5 10:36:34 Chronic pain of left upper limb 9116351236042 9103 Active 2024 Tyrone Burk MD [address], [place], [address], [place] [facility] [place] [facility] 5 10:43:02 Left cervical root neuropathy 7302571866308 9106 Active 2024 Tyrone Burk MD [address], [place], [address], [place] [facility] [place] [facility] 5 10:44:23 Degeneratio n of cervical interverteb ral disc 63637442 Active 2024 Tyrone Burk MD [address], [place], [address], [place] [facility] [place] [facility] 5 10:25:51 Osteoarthri tis of joint of left shoulder region 2970490798255 08 Active 2024 Tyrone Burk MD [address], [place], [address], [place] [facility] [place] [facility] 5 10:26:04 Pain of left shoulder region Active 2024 BELLA Bahena null, [place] [facility] [place] [facility] 5 09:24:14 Cervical spondylosis 028260802 Active 2024 Tyrone Burk MD [address], [place], [address], [place] [facility] [place] [facility] 5 09:36:35 Tight chest 05912124 Active 2024 Tyrone Burk MD [address], [place], [address], [facility] [employer] [facility] 5 09:39:56 Problem Notes None recorded. Procedures Surgical History Date Name Laterality Status Provider Name and Address Organization Details Recorded Time 5 Ear Irrigation completed Tyrone Burk MD [address], [address], [place], [address], [facility] [employer] [facility] 10/04/2024 10:35:45 2 colonoscopy completed Kierra Alberts RN [facility] 03/10/2023 11:49:11 5 Carpal tunnel surgery completed Kierra Alberts RN [facility] 03/10/2023 11:45:17 4 Carpal tunnel surgery completed Kierra Alberts RN [facility] 03/10/2023 11:45:01 0 vasectomy completed Kierra Alberts RN [facility] 03/10/2023 11:44:13 Imaging Results None recorded. Procedure [...] Available Not Available meloxicam 15 mg tablet TAKE 1 TABLET BY MOUTH EVERY DAY active Not Available Not Available No t Available prednisone 20 mg tablet TAKE 3 [...] Available Not Available fenofibrate 54 mg tablet TAKE 1 TABLET BY MOUTH EVERY MORNING 2024 active Not Available Not Available Not Avai lable Vitals Date Recorded Systolic And Diastolic Provider Name and Address Organization Details Last Updated DateTime 07/25/2025 148/80 mm[Hg] Mable Saeed [address] [place] [address], [facility] [address], [place], [address], [place] [employer] [facility] Anonymous You 07/25/2025 09:49:51 Date Recorded Body height Body mass index (BMI) Body weight Body temperature Oxygen saturation Heart rate Provider Name and Address Organization Details Last Updated DateTime 175.26 cm 24.4 kg/m2 29098.7 9 g 97.6 [degF] 97 % 61 /min Sheila Brown RN [facility] Anonymous You 09:30:03 Social History Question Answer Notes LastModified by Organization Details LastModified Time Tobacco Smoking Status Never Smoker Kierra Alberts RN null, [place] [employer] [facility] Anonymous You 03/10/2023 11:46:10 Do You Have An Advance Directive? No Information not available 03/10/2023 Are You Blind Or Do You Have Difficulty Seeing? No Information not available 03/10/2023 Is Blood Transfusion Acceptable In An Emergency? Yes Information not available 03/10/2023 What Is Your Level Of Caffeine Consumption? Moderate Soda-coke, And Sunkist [place] [email or web address] Information not available 09/13/2024 In The 14 [...] Do You Have A Medical Power Of Combination Building Inspector? No Information not available 03/10/2023 What Was The Date Of Your Most Recent Tobacco Screening? 06/20/2025 [email or web address] Information not available 06/20/2025 Do You Have [...] Status Question Answer Note LastModified by Organizat [employer] Details LastModified Time What is your level [...] Status Question Answer Note LastModified by Organizat [employer] Details LastModified Time Do you feel stressed (tense, restless, nervous, or anxious, or unable to sleep at night)? [id number] Information not available 03/10/2023 Do you have difficulty concentrating, remembering or making decisions? No Information no t available 03/10/2023 Family History Relationship Description Onset Age of this Age Resolved Age Notes LastModified by Organization Details LastModified Time Sister Diabetes mellitus [email or web address] Not available 2024 09:21:37 Medical History Condition [...] HAVE YOU BEEN HOSPITALIZED OR SEEN IN [facility] IN THE PAST YEAR ? N [...] ICD10 Code Diagnosis IMO Codes Diagnosis Note [id number] Tyrone Burk MD [facility] [address] [address] 07/25/2025 09:19:07 07/25/2025 09:44:24 Chronic pain of left upper limb 1985085380 9852227 M25.512 G89.29 240547 Left cervi laci root neuropathy 0978006257 3877266 M54.12 81785521 Hyperlipidemia 86686777 E78.5 Hypertriglyceridemia 302 943562 E78.2 Prediabetes 845315694 R7 3.03 Diet controlled Hyperbilirubinemia 42258 006 E80.6 resolved Elevated blood-pressure reading without diagnosis of hypertension 990429228 R03.0 Gastroesop hageal reflux disease without esophagitis 690081484 K21.9 Seasonal a llergic rhinitis 243166969 J30.2 Sensorineu ral hearing loss of bilateral ears 563926723 H90.3 chronic Degenerati on of cervical intervertebral disc 50015047 M50.30 052122 Osteoarthr itis of joint of left shoulder region 8752284796 24294 M19.304 7906120 Cervical spondylosis 387 084540 M47.22 184185 Tight chest 47075937 R07 .89 [id number] Health Concerns Section Related Observation LastModified by Organization Detai ls LastModified Time None Recorded Concern Status LastModified by Organization Details LastModified Time None Recorded Payers Encounter Date Sequence Insurance Name Policy Number Policy Lemon Covered Member ID Lemon Member ID Guarantor Name 07/25/2025 1 [facility] (MEDICARE REPLACEMENT/A DVANTAGE - POS) [id number] Salvatore Colbert [id number] Salvatore Colbert Notes Date Note Type Note Provider Name and Address Organization Details Recorded Time 07/25/2025 text/html FUV + ACV: C/o chest tightness for last 3-4 months. Pt says it happens whenever he watches football and it lasts for few hrs at a time. Denies any sweating/SOB episode with it. He takes rest and it gets better. Pt never had any heart testing done in the past. Denies any symptoms in the office. Pt is here for f/u on his lab and MRI. Doing overall better. Denies any problem with meds. Pt is f/u with Ortho for his chronic Lt shoulder pain and will be getting EMG done with them. C/o Lt shoulder area pain with Lt [...] and he has hearing aids too. Tyrone Bruk MD [address] [place] [address] [address], [place], [address], [place] [facility] [place] [facility] 07/25/2025 09:51:54
--- OUTSIDE RECORDS SUMMARY | 2025-08-27 16:29 | XMS_ITS | Clinical Summary ---
Author Organization [facility] Address [address] [place] [address] Care Team Providers Care Technical Associate Name Role Phone Charito Ferrell PA-C Primary Care Provider [phone] Erich Parker MD Unavailable [phone] Allergies No known active allergies Medications [...] (06/05/2022): Added automatically from request for surgery [id number] Screening for colon cancer 06/05/2022 Overview (06/05/2022): Added automatically from request for surgery [id number] Gastroesophageal reflux disease without esophagi tis 03/10/2021 Allergic rhinitis, unspecifi ed seasonality, unspecified trigger 03/10/2021 Resolved Problems Problem Noted Date Diagnosed Date Resolved Date Current moderate episode of major depressive disorder without prior episode 06/25/2021 2 Encounters Date Type Department Care Team Description 07/09/[address] 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 For additional information, please refer to http://education.[employer]/faq/JKV953 (This link is being provided for informational/ educational purposes only.) 06/24/2022 7:14 AM CDT 06/24/2022 7:16 AM CDT us Charito Ferrell PA-C LABORATORY Final Resu lt [facility] [address] [place] [address] * COLONOSCOPY GENERIC (11/26/2016) 11/26/2016 Narrative 11/26/2016 Ordered by an unspecified provider. us Documents Scanned SCANNING Final Result from Last 3 Months or Most Recently Relevant to Health Maintenance Insurance MEDICARE Care Teams Technical Associate Relationship Specialty Start Date End Date Charito Ferrell PA-C [address] [facility] [place] [address] PCP - General PHYSICIAN HISTORIC INTERPRETER 07/25/18 rEich Parker MD [facility]. [address] [place] [address] [place] CARDIOVASCULAR DISEASE 07/30/18
--- OUTSIDE RECORDS SUMMARY | 2025-08-27 16:29 | XMS_ITS | Encounter Summary ---
Author Organization 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 [place] [address] PCP - General PHYSICIAN BIT SHARPENER OPERATOR 07/25/18 Erich Parker MD [facility]. [address] [address] [place] [employer] CARDIOVASCULAR DISEASE 07/30/18 documented as of this encounter
--- OUTSIDE RECORDS SUMMARY | 2025-08-27 16:29 | XMS_ITS | Continuity of Care Document ---
Author Organization [place] - [facility], [facility] Address [address] [place] [address] Care Team Providers Care Needle Loom Operator Name Role Phone TYRONE BURK Primary Care Provider TYRONE BURK Referring Provider TYRONE BURK Primary Care Provider Assessment Encounter Date Assessment Date Assessment LastModified by Organization Details LastModified Time 06/20/2025 06/20/2025 69-year-old male presents for evaluation of his left shoulder. 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 He has a history of a [...] of a carpal tunnel release done in 2015. He is right-hand dominant. Review of systems per patient questionnaire Physical exam: he has tenderness palpation over the AC joint and also over the biceps. Range of motion 140/30/lower lumbar. He has 5/5 strength with internal external rotation elevation, negative Yolis. Positive Tioga's and AC compression. Positive Neer and Meyer. [...] Modified Time Details Appointments Physical/ Annual Wellness 2025 09:00A M Tyrone Burk MD Not available Not available Not available Lab None recorded. Referral physical therapist referral - Please see patient for L shoulder, work on ROM and strengthe kyung. Thanks 2024 [email or web address] [place], [address], [place], [address], 07/20/2025 08:02:18 Procedures nerve conductio n study/EMG , upper extremity (PROC) - Left upper extremity 2024 025 [email or web address] [facility] Scheduling, [address] [facility] [address], [place], [address], 07/25/2025 09:32:55 Surgeries None recorded. Imaging None recorded. Medication Orders meloxicam 15 mg tablet 2024 025 [id number], [address], [place], [id number], 06/21/2025 12:49:51 Patient TargetsNo targets recorded. Patient InstructionsNo instructions recorded. Reason for Referral Physical Therapist Referral for Pain of left shoulder region L shoulder Please see patient for L shoulder, work on ROM and strengthening. Thanks Referring Physician: Osvaldo Dill, Orthopedic Surgery, Encounter Date: 06/20/2025 Results Created Date Observation Date Name Description Value Unit Range Abnormal Flag Note LastModifiedBy Organization Detail LastModifiedTime 06/24/2006/23/2025 MRI, cervi laci spine , w/o contr ast No observ ation record ed. [email or web address] [facility] [address] [place], [address], 07/25/2025 09:32:55 06/25/2006/23/2025 MRI, shoul ana m, w/o contr ast No observ ation record ed. [email or web address] [facility] [address] [place], [address], 07/25/2025 09:32:55 Result Notes None recorded. Problems Name Problem SNOMED Code Status Onset Date Resolution Date Notes Provider Name and Address Organization Details Recorded Time Elevated blood-press ure reading without diagnosis of hypertensio n 332590095 Active 2022 Tyrone Burk MD [address], [place], [address], [employer] 5 10:54:27 Gastroesoph ageal reflux disease without esophagitis 820120565 Active 2022 Tyrone Burk MD [address], [place], [address], [employer] 5 10:54:27 Bronchitis 28298155 Active 2022 Tyrone Burk MD [address], [place], [address], [employer] 3 12:28:15 Sinusitis 20206622 Active 2022 Tyrone Burk MD [address], [place], [address], [employer] 3 17:24:53 Cough 78257322 Active 2022 Tyrone Burk MD [address], [place], [address], [employer] 3 17:25:21 Seasonal allergic rhinitis 133530153 Active 2022 Tyrone Burk MD [address], [place], [address], [employer] 5 10:54:27 Sensorineur al hearing loss of bilateral ears 818555356 Active 2023 Tyrone Burk MD [address], [place], [address], [employer] 5 10:54:28 Hyperlipide vladimir 90655962 Active 2023 Tyrone Burk MD [address], [place], [address], [employer] 5 10:54:27 Hypertrigly ceridemia 946786765 Active 2023 Tyrone Burk MD [address], [place], [address], [employer] 5 10:54:27 Eruption 253450846 Active 2023 Tyrone Burk MD [address], [place], [address], [employer] 4 16:37:07 Tinea corporis 71481470 Active 2023 Tyrone Burk MD [address], [place], [address], [employer] 4 16:37:25 Sore throat 471815903 Active 2023 TASIA Sparrow [address], [place], [address], [employer] 4 11:04:30 Chronic cough 49266932 Active 2023 TASIA Sparrow [address], [place], [address], [employer] 4 11:07:28 Acute sinusitis 44622781 Active 2023 TASIA Sparrow [address], [place], [address], [place] [facility] 4 09:11:16 Impacted cerumen of bilateral ears 2975314534465 108 Active 2024 Tyrone Burk MD [address], [place], [address], [place] [facility] 5 11:18:51 Prediabetes 558539608 Active 2024 Tyrone Burk MD [address], [place], [address], [place] [facility] 5 10:54:27 Hyperbiliru binemia 68098443 Active 2024 Tyrone Burk MD [address], [place], [address], [place] [facility] 5 10:54:27 Chronic low back pain 404502140 Active 2024 Tyrone Burk MD [address], [place], [address], [place] [facility] 5 11:08:39 Pain of right hip joint 4772316695539 02 Active 2024 Tyrone Burk MD [address], [place], [address], [place] [facility] 5 11:09:06 Lumbar spondylosis 214362434 Active 2024 Tyrone Burk MD [address], [place], [address], [place] [facility] 5 10:36:27 Degeneratio n of lumbar interverteb ral disc 52134428 Active 2024 Tyrone Burk MD [address], [place], [address], [place] [facility] 5 10:36:34 Chronic pain of left upper limb 3090768462792 9103 Active 2024 Tyrone Burk MD [address], [place], [address], [employer] 5 10:43:02 Left cervical root neuropathy 1421702370785 9106 Active 2024 Tyrone Burk MD [address], [place], [address], [employer] 5 10:44:23 Degeneratio n of cervical interverteb ral disc 66448394 Active 2024 Tyrone Burk MD [address], [place], [address], [employer] 5 10:25:51 Osteoarthri tis of joint of left shoulder region 8476501250252 08 Active 2024 Tyrone Burk MD [address], [place], [address], [employer] 5 10:26:04 Pain of left shoulder region Active 2024 Chelsea Gunter Allen null, [employer] 5 09:24:14 Cervical spondylosis 478971970 Active 2024 Tyrone Burk MD [address], [place], [address], [employer] 5 09:36:35 Tight chest 58608700 Active 2024 Tyrone Burk MD [address], [place], [address], [employer] 5 09:39:56 Problem Notes None recorded. Procedures Surgical History Date Name Laterality Status Provider Name and Address Organization Details Recorded Time 5 Ear Irrigation completed Tyrone Burk MD [address], [place], [address], [employer] 10/04/2024 10:35:45 2 colonoscopy completed Kierra Alberts RN [facility] 03/10/2023 11:49:11 5 Carpal tunnel surgery completed Kierra Alberts RN [facility] 03/10/2023 11:45:17 4 Carpal tunnel surgery completed Kierra Alberts RN [facility] 03/10/2023 11:45:01 0 vasectomy completed Kierra Alberts RN [facility] 03/10/2023 11:44:13 Imaging Results None recorded. Procedure [...] Updated DateTime 06/20/2025 175.26 cm 25 kg/m2 35083.11 g 6 Chelsea Gunter [facility] [employer] [facility] [employer] 06/20/2025 09:19:48 Social History Question Answer Notes LastModified by Organization Details LastModified Time Tobacco Smoking Status Never Smoker Kierra Alberts RN [facility], [employer] [facility] [employer] 03/10/2023 11:46:10 Do You Have An Advance Directive? No Information not available 03/10/2023 Are You Blind Or Do You Have Difficulty Seeing? No Information not available 03/10/2023 Is Blood Transfusion Acceptable In An Emergency? Yes Information not available 03/10/2023 What Is Your Level Of Caffeine Consumption? Moderate Soda-coke, And [employer] [email or web address] Information not available 09/13/2024 In The 14 [...] Do You Have A Medical Power Of Burr Grinder? No Information not available 03/10/2023 What Was [...] anxious, or unable to sleep at night)? [id number] Information not available 03/10/2023 Do you have difficulty concentrating, remembering or making decisions? No Information no t available 03/10/2023 Family History Relationship Description Onset Age of this Age Resolved Age Notes LastModified by Organization Details LastModified Time Sister Diabetes mellitus [email or web address] Not available 2024 09:21:37 Medical History Condition [...] HAVE YOU BEEN HOSPITALIZED OR SEEN IN [facility] IN THE PAST YEAR ? N [...] ICD10 Code Diagnosis IMO Codes Diagnosis Note [id number] Tyrone Burk MD [facility] [address] [address] 05/31/2025 10:51:11 05/31/2025 11:13:49 Chronic pain of left upper limb 2286718117 [id number] M25.512 G89.29 346339 Left cervi laci root neuropathy 3205184779 5856693 M54.12 [id number] Hyperlipidemia 17169050 E78.5 Hypertriglyceridemia 302 685333 E78.2 Prediabetes 867083692 R7 3.03 Hyperbilirubinemia 34145 006 E80.6 resolved Elevated blood-pressure reading without diagnosis of hypertension 336121599 R03.0 Gastroesop hageal reflux disease without esophagitis 142156505 K21.9 Seasonal a llergic rhinitis 226030544 J30.2 Sensorineu ral hearing loss of bilateral ears 362129373 H90.3 chronic Degenerati on of cervical intervertebral disc 93924555 M50.30 806900 Osteoarthr itis of joint of left shoulder region 0188303221 15868 M19.543 [id number] Osvaldo Dill MD [facility] [address] [place] [address] 06/20/2025 08:50:17 06/20/2025 09:50:37 Pain of left shoulder region 0113501218 M25.512 [id number] Health Concerns Section Related Observation LastModified by Organization Detai ls LastModified Time None Recorded Concern Status LastModified by Organization Details LastModified Time None Recorded Payers Encounter Date Sequence Insurance Name Policy Number Policy Lemon Covered Member ID Lemon Member ID Guarantor Name 06/20/2025 1 [facility] (MEDICARE REPLACEMENT/A DVANTAGE - POS) [id number] Salvatore Colbert [id number] Salvatore Colbert
--- OUTSIDE RECORDS SUMMARY | 2025-08-27 16:29 | XMS_ITS | Continuity of Care Document ---
Author Organization [place] - [facility], [facility] Family [facility] Address [address] [place] [address] Care Team Providers Care Management Intern Name Role Phone TYRONE BURK Primary Care Provider [phone] TYRONE BURK Referring Provider TYRONE BURK Primary Care Provider [phone] Assessment Encounter Date Assessment Date Assessment LastModified by Organization Details LastModified Time 05/31/2025 05/31/2025 69 yo M with - [...] A1c in 07/24. Annual labs in 09/24. [email or web address] Not available 05/31/2025 11:10:24 Plan of Treatment Reminders Order Date Submit Date Provider Last Modified By Organization Details Last Modified Time Details Appointments Physical/ Annual Wellness 2025 09:00A M Tyrone Burk MD Not available Not available Not available Lab None recorded. Referral orthopedi c surgeon referral - Please call patient to schedule an appointme nt. Thank you. 2024 [email or web address] [facility], [address], [place], [address], 06/25/2025 14:19:57 Procedures None recorded. Surgeries None recorded. Imaging MRI, cervical spine, w/o contrast - Please call patient to schedule. Note from provider: Chronic neck pain with Lt UE tingling & numbness, x-ray, meds and PT done. 2024 025 [email or web address] [facility], [address] [place] [address] , [address], [place], [address], 06/25/2025 10:30:53 MRI, shoulder, w/o contrast - Please call patient to schedule. 2024 [facility], [address] [place] [address] , [address], [place], [address], 06/26/2025 09:05:38 Medication Orders fenofibra te 54 mg tablet 2024 025 [place] [facility]/Pharmacy #[id number], [address] [place], [address], 05/31/2025 11:04:10 atorvasta tin 10 mg tablet 2024 025 [facility]acy #[id number], [address] [place], [address], 05/31/2025 11:04:11 Patient TargetsNo targets recorded. Patient Instructions Encounter Date Encounter Id Patient Instructions Last Modified By Organization Details Last Modified Time 05/31/2025 [id number] dash diet: care instructions [email or web address] Not available 05/31/2025 11:04:07 learning about high blood pressure [email or web address] Not available 05/31/2025 11:04:07 prediabetes: car e instructions Not available 05/31/2025 11:04:07 high cholesterol : care instructions [email or web address] Not available 05/31/2025 11:04:07 Reason for Referral Orthopedic Surgeon Referral for Chronic pain of left upper limb Please call patient to schedule an appointment. Thank you. Referring Physician: Tyrone Burk, Family Medicine, Encounter Date: 05/31/2025 Results Created Date Observation Date Name Description Value Unit Range Abnormal Flag Note LastModifiedBy Organization Detail LastModifiedTime 06/24/2006/23/2025 MRI, cervi laci spine , w/o contr ast No observ ation record ed. [address] [place], [address], 07/25/2025 09:32:55 06/25/2006/23/2025 MRI, shoul ana m, w/o contr ast No observ ation record ed. [address] [place], [address], 07/25/2025 09:32:55 Result Notes None recorded. Problems Name Problem SNOMED Code Status Onset Date Resolution Date Notes Provider Name and Address Organization Details Recorded Time Elevated blood-press ure reading without diagnosis of hypertensio n 894682142 Active 2022 Tyrone Burk MD [address] [facility], [facility] [address], [place], [address], [facility] [employer] 10:54:27 Gastroesoph ageal reflux disease without esophagitis 350465931 Active 2022 Tyrone Burk MD [address], [address], [place], [address], [employer] 10:54:27 Bronchitis 99836926 Active 2022 Tyrone Burk MD [address], [address], [place], [address], [employer] 12:28:15 Sinusitis 28921194 Active 2022 Tyrone Burk MD [address], [address], [place], [address], [employer] 3 17:24:53 Cough 74352193 Active 2022 Tyrone Burk MD [address], [address], [place], [address], [employer] 3 17:25:21 Seasonal allergic rhinitis 896577938 Active 2022 Tyrone Burk MD [address], [address], [place], [address], [employer] 5 10:54:27 Sensorineur al hearing loss of bilateral ears 771682879 Active 2023 Tyrone Burk MD [address], [address], [place], [address], [employer] 5 10:54:28 Hyperlipide vladimir 42261293 Active 2023 Tyrone Burk MD [address], [address], [place], [address], [employer] 5 10:54:27 Hypertrigly ceridemia 451471045 Active 2023 Tyrone Burk MD [address], [address], [place], [address], [employer] 5 10:54:27 Eruption 840259427 Active 2023 Tyrone Burk MD [address], [address], [place], [address], [employer] [place] [facility] [employer] 4 16:37:07 Tinea corporis 34758948 Active 2023 Tyrone Burk MD [address], [address], [place], [address], [employer] [facility] [place] [facility] [employer] 4 16:37:25 Sore throat 548577832 Active 2023 ATSIA Sparrow [address], [address], [place], [address], [employer] [facility] [employer] 4 11:04:30 Chronic cough 93385744 Active 2023 TASIA Sparrow [address], [address], [place], [address], [employer] [facility] [employer] 4 11:07:28 Acute sinusitis 61504908 Active 2023 TASIA Sparrow [address], [address], [place], [address], [employer] [facility] [employer] 4 09:11:16 Impacted cerumen of bilateral ears 8194653982367 108 Active 2024 Tyrone Burk MD [address], [address], [place], [address], [employer] [facility] [employer] 5 11:18:51 Prediabetes 086697722 Active 2024 Tyrone Burk MD [address], [address], [place], [address], [employer] [facility] [employer] 5 10:54:27 Hyperbiliru binemia 93293663 Active 2024 Tyrone Burk MD [address], [address], [place], [address], [place] [facility] [place] [employer] [facility] [employer] 5 10:54:27 Chronic low back pain 248638488 Active 2024 Tyrone Burk MD [address], [address], [place], [address], [employer] [facility] 5 11:08:39 Pain of right hip joint 3119147079410 02 Active 2024 Tyrone Burk MD [address], [address], [place], [address], [employer] [facility] 5 11:09:06 Lumbar spondylosis 423007737 Active 2024 Tyrone Burk MD [address], [address], [place], [address], [employer] 10:36:27 Degeneratio n of lumbar interverteb ral disc 95971352 Active 2024 Tyrone Burk MD [address], [address], [place], [address], [employer] 5 10:36:34 Chronic pain of left upper limb 4592960928915 9103 Active 2024 Tyrone Burk MD [address], [address], [place], [address], [employer] 5 10:43:02 Left cervical root neuropathy 2188516145391 9106 Active 2024 Tyrone Burk MD [address], [address], [place], [address], [employer] 5 10:44:23 Degeneratio n of cervical interverteb ral disc 02781686 Active 2024 Tyrone Burk MD [address], [address], [place], [address], [employer] 5 10:25:51 Osteoarthri tis of joint of left shoulder region 5550661179965 08 Active 2024 Tyrone Burk MD [address], [address], [place], [address], [facility] [employer] [facility] 5 10:26:04 Pain of left shoulder region Active 2024 Chelsea Gunter, Shola null, [facility] 5 09:24:14 Cervical spondylosis 015767399 Active 2024 Tyrone Burk MD [address] [facility], [address], [place], [address], [facility] [employer] [facility] 5 09:36:35 Tight chest 27525945 Active 2024 Tyrone Burk MD [address] [facility], [address], [place], [address], [facility] [employer] [facility] 5 09:39:56 Problem Notes None recorded. Procedures Surgical History Date Name Laterality Status Provider Name and Address Organization Details Recorded Time 5 Ear Irrigation completed Tyrone Burk MD [address] [facility], [address], [place], [address], [facility] [employer] [facility] 10/04/2024 10:35:45 2 colonoscopy completed Kierra Alberts RN [facility] 03/10/2023 11:49:11 5 Carpal tunnel surgery completed Kierra Alberts RN [facility] 03/10/2023 11:45:17 4 Carpal tunnel surgery completed Kierra Alberts RN [facility] 03/10/2023 11:45:01 0 vasectomy completed Kierra Alberts RN [facility] 03/10/2023 11:44:13 Imaging Results None [...] Available Not Available diclofenac sodium 75 mg tablet,rroo yed release Take 1 tablet every 12 [...] weight Body temperature Oxygen saturation Heart rate Systolic And Diastolic Provider Name and Address Organization Details Last Updated DateTime 175.26 cm 23.8 kg/m2 81551.1 2 g 98 [degF] 96 % 57 /min 120/64 mm[Hg] Sheila Brown RN [facility] [employer] 10:59:04 Social History Question Answer Notes LastModified by Organization Details LastModified Time Tobacco Smoking Status Never Smoker Kierra Alberts RN [facility], [facility] [employer] 03/10/2023 11:46:10 Do You Have An Advance Directive? No Information not available 03/10/2023 Are You Blind Or Do You Have Difficulty Seeing? No Information not available 03/10/2023 Is Blood Transfusion Acceptable In An Emergency? Yes Information not available 03/10/2023 What Is Your Level Of Caffeine Consumption? Moderate Soda-coke, And Sunkist [place] [email or web address] Information not available 09/13/2024 In The 14 [...] Do You Have A Medical Power Of Naturopathic Physician? No Information not available 03/10/2023 What Was [...] anxious, or unable to sleep at night)? [id number] Information not available 03/10/2023 Do you have difficulty concentrating, remembering or making decisions? No Information no t available 03/10/2023 Family History Relationship Description Onset Age of this Age Resolved Age Notes LastModified by Organization Details LastModified Time Sister Diabetes mellitus [email or web address] Not available 2024 09:21:37 Medical History Condition [...] HAVE YOU BEEN HOSPITALIZED OR SEEN IN [facility] IN THE PAST YEAR ? N ATHEROSCLEROSIS [...] ICD10 Code Diagnosis IMO Codes Diagnosis Note [id number] Tyrone Burk MD [address] [address] 05/01/2025 09:47:21 05/01/2025 12:06:42 Hyperlipidemia 47689833 E78.5 Hypertriglyceridemia 302 778045 E78.2 Prediabetes 239967848 R7 3.03 Hyperbilirubinemia 61554 006 E80.6 resolved Elevated blood-pressure reading without diagnosis of hypertension 517539300 R03.0 Gastroesop hageal reflux disease without esophagitis 900274597 K21.9 Seasonal a llergic rhinitis 284550313 J30.2 Sensorineu ral hearing loss of bilateral ears 632195436 H90.3 chronic Chronic pa in of left upper limb 7719199411 2242287 M25.512 G89.29 535312 Left cervi laci root neuropathy 8455966865 8354954 M54.12 96745170 Degenerati on of cervical intervertebral disc 81804853 M50.30 348073 Osteoarthr itis of joint of left shoulder region 6918431814 55342 M19.404 [id number] Tyrone Burk MD [address] [address] 05/31/2025 10:51:11 05/31/2025 11:13:49 Chronic pain of left upper limb 4893159540 6346055 M25.512 G89.29 499215 Left cervi laci root neuropathy 1530555777 4965463 M54.12 43303405 Hyperlipidemia 74214215 E78.5 Hypertriglyceridemia 302 760086 E78.2 Prediabetes 425343673 R7 3.03 Hyperbilirubinemia 89933 006 E80.6 resolved Elevated blood-pressure reading without diagnosis of hypertension 250242133 R03.0 Gastroesop hageal reflux disease without esophagitis 436671929 K21.9 Seasonal a llergic rhinitis 512374882 J30.2 Sensorineu ral hearing loss of bilateral ears 947856799 H90.3 chronic Degenerati on of cervical intervertebral disc 57239353 M50.30 221588 Osteoarthr itis of joint of left shoulder region 5410008451 30635 M19.868 [id number] Health Concerns Section Related Observation LastModified by Organization Detai ls LastModified Time None Recorded Concern Status LastModified by Organization Details LastModified Time None Recorded Payers Encounter Date Sequence Insurance Name Policy Number Policy Lemon Covered Member ID Lemon Member ID Guarantor Name 05/31/2025 1 [facility] (MEDICARE REPLACEMENT/A DVANTAGE - POS) [id number] Salvatore Colbert [id number] Salvatore Colbert Notes Date Note Type Note Provider Name and Address Organization Details Recorded Time 05/31/2025 text/html Pt is here for f/u [...] has hearing aids too. Tyrone Burk MD [address] [place] [address], [facility] [address], [place], [address], [facility] [employer] 05/31/2025 11:10:43
--- OUTSIDE RECORDS SUMMARY | 2025-08-27 16:29 | XMS_ITS | Encounter Summary ---
Author Organization [facility] Address [address] [place] [address] Care Team Providers Care Hat Trimmer Name Role Phone Charito Ferrell PA-C Primary Care Provider [phone] Erich Parker MD Unavailable [phone] Encounter Details Date Type Department Care Team (Late st Contact Info) Description 07/09/2025 Orders Only [facility] Outpatient Therapy THREE [facility] [address] [place] [address] Batool Murguia MD [address] [place] [address] Social History Tobacco Use Types Packs/Day Years [...] Job Start Date Job End Date [employer]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 [address] PCP - General PHYSICIAN THERMAL TECHNICIAN 07/25/18 Erich Parker MD Three [facility]. [address] [place] [address] Tyrone Chuck Boner CARDIOVASCULAR DISEASE 07/30/18 documented as of this encounter
--- OUTSIDE RECORDS SUMMARY | 2025-08-27 16:29 | XMS_ITS | Data Portability ---
Author Organization [facility] [employer], Main Office Address [address] [place] [address] Care Team Providers Care Library Clerk Talking Books Name Role Phone TYRONE BURK Primary Care Provider TYRONE BURK Referring Provider TYRONE BURK Primary Care Provider Assessment Encounter Date Assessment Date Assessment LastModified by Organization Details LastModified Time 04/03/2025 04/03/2025 69 yo M with - [...] A1c in 07/24. Annual labs in 09/24. [email or web address] Not available 04/03/2025 10:51:47 05/01/2025 05/01/2025 69 [...] A1c in 07/24. Annual labs in 09/24. Not available 05/01/2025 10:25:40 05/31/2025 05/31/2025 69 [...] A1c in 07/24. Annual labs in 09/24. [email or web address] Not available 05/31/2025 11:10:24 06/20/2025 06/20/2025 69-year-old male presents for evaluation of his left shoulder. 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 He has a history of a [...] internal external rotation elevation, negative Yolis. Positive Hardy's and AC compression. Positive Neer and Meyer. [...] still symptomatic. [email or web address] Not available 06/20/2025 11:59:51 07/25/2025 07/25/2025 69 yo M with - [...] in 2 months. Annual labs in 09/24. [email or web address] Not available 07/25/2025 09:51:51 Plan of Treatment Reminders Order Date Submit Date Provider Last Modified By Organization Details Last Modified Time Details Appointments Physical/ Annual Wellness 30 2025 09:00A M Tyrone Burk MD Not available Not available Not available Lab glycohemo globin, total, blood 2024 025 [email or web address] [facility] (Lab), [address] [place], [address], 07/02/2025 10:25:17 Referral cardiolog ist referral - Please call patient to schedule an appointme nt. Thank you. 2024 025 [email or web address] [facility] Referral Fax Line, [address] [facility], [facility] [address], [place], [address], 08/27/2025 12:40:01 pain managemen t referral - Please call patient to schedule an appointme nt. Thank you. 2024 025 [email or web address] Mayra Hernandez MD, [address] [facility], [facility] [address], [place], [address], 08/27/2025 14:20:15 physical therapist referral - Please see patient for L shoulder, work on ROM and strengthe kyung. Thanks 2024 025 [email or web address] [facility], [address] [place] [address], [address], 07/20/2025 08:02:18 orthopedi c surgeon referral - Please call patient to schedule an appointme nt. Thank you. 2024 [email or web address] [facility], [address] [facility] [address] [facility] [address], [place], [address], 06/25/2025 14:19:57 physical therapist referral - Chronic neck and Lt shoulder pain, OA ++, x-rays done. 2024 [email or web address] [facility], [address], [place], [address], 06/05/2025 14:48:30 Procedures nerve conductio n study/EMG , upper extremity (PROC) - Left upper extremity 2024 [email or web address] [facility] Scheduling, [address] [facility], [place], [address], 07/25/2025 09:32:55 Surgeries None recorded. Imaging MRI, cervical spine, w/o contrast - Please call patient to schedule. Note from provider: Chronic neck pain with Lt UE tingling & numbness, x-ray, meds and PT done. 2024 [email or web address] [facility], [address] [place] [address] [address], [place], [address], 06/25/2025 10:30:53 MRI, shoulder, w/o contrast - Please call patient to schedule. 2024 [email or web address] [facility], [address] [place] [address] [address], [place], [address], 06/26/2025 09:05:38 XR, shoulder, 2 or more view 2024 025 [facility], [address], [place], [address], 04/06/2025 08:35:38 XR, clavicle 2024 025 [email or web address] [facility], [address] [address], [place], [address], 04/09/2025 10:47:23 XR, cervical spine, 4 or 5 view 2024 025 [facility], [address] [facility] [address], [address], 04/06/2025 08:34:42 Medication Orders fenofibra te 54 mg tablet 2024 025 [facility]2510, [address] [place], [address], 07/25/2025 09:38:54 atorvasta tin 10 mg tablet 2024 025 [facility]25[facility], [address] [place], [address], 07/25/2025 09:38:54 meloxicam 15 mg tablet 2024 025 [email or web address] [facility], [address] [place], [id number], 06/21/2025 12:49:51 fenofibra te 54 mg tablet 2024 025 [facility]25[facility], [address] [place], [address], 05/31/2025 11:04:10 atorvasta tin 10 mg tablet 2024 025 [facility]25[facility], [address] [place], [address], 05/31/2025 11:04:11 fenofibra te 54 mg tablet 2024 025 [email or web address] [facility]acy #2510, [address] [place], [address], 05/01/2025 10:15:17 atorvasta tin 10 mg tablet 2024 025 [facility]25[facility], [address] [place], [address], 05/01/2025 10:15:06 fenofibra te 54 mg tablet 2024 025 [facility]25[facility], [address] [place], [address], 04/03/2025 10:42:43 atorvasta tin 10 mg tablet 2024 025 [facility]2510, [address] [place], [address], 04/03/2025 10:42:43 Medrol (Christian) 4 mg tablets in a dose pack [address] [facility], [address] [place] [address], [place], [id number], 06/20/2025 09:21:15 Patient TargetsNo targets recorded. Patient Instructions Encounter Date Encounter Id Patient Instructions Last Modified By Organization Details Last Modified Time 04/03/2025 [id number] dash diet: care instructions [email or web address] Not available 04/03/2025 10:42:40 learning about high blood pressure [email or web address] Not available 04/03/2025 10:42:40 prediabetes: car e instructions [email or web address] Not available 04/03/2025 10:42:40 high cholesterol : care instructions [email or web address] Not available 04/03/2025 10:42:40 05/01/2025 [id number] dash diet: care instructions Not available 05/01/2025 10:15:01 learning about high blood pressure [email or web address] Not available 05/01/2025 10:15:01 prediabetes: car e instructions [email or web address] Not available 05/01/2025 10:15:00 high cholesterol : care instructions [email or web address] Not available 05/01/2025 10:15:00 05/31/2025 [id number] dash diet: care instructions [email or web address] Not available 05/31/2025 11:04:07 learning about high blood pressure [email or web address] Not available 05/31/2025 11:04:07 prediabetes: car e instructions [email or web address] Not available 05/31/2025 11:04:07 high cholesterol : care instructions [email or web address] Not available 05/31/2025 11:04:07 07/25/2025 [id number] dash diet: care instructions [email or web address] Not available 07/25/2025 09:38:52 learning about high blood pressure Not available 07/25/2025 09:38:52 prediabetes: car e instructions [email or web address] Not available 07/25/2025 09:38:52 high cholesterol : care instructions Not available 07/25/2025 09:38:52 Reason for Referral Physical Therapist Referral for Chronic pain of left upper limb Chronic neck and Lt shoulder pain, OA ++, x-rays done. Referring Physician: Tyrone Burk [facility], Encounter Date: 05/01/2025 Orthopedic Surgeon Referral for Chronic pain of left upper limb Please call patient to schedule an appointment. Thank you. Referring Physician: Tyrone Burk [facility] Medicine, Encounter Date: 05/31/2025 Physical Therapist Referral for Pain of left shoulder region L shoulder Please see patient for L shoulder, work on ROM and strengthening. Thanks Referring Physician: Osvaldo Dill, Orthopedic Surgery, Encounter Date: 06/20/2025 Pain Management Referral for Cervical spondylosis Chronic neck pain, abnormal MRI c-spine wo. Please call patient to schedule an appointment. Thank you. Referring Physician: Tyrone Burk [facility] Medicine, Encounter Date: 07/25/2025 Geologist Referral for Ti ght chest Please call patient to schedule an appointment. Thank you. Referring Physician: Tyrone Burk [facility], Encounter Date: 07/25/2025 Results Created Date Observation Date Name Description Value Unit Range Abnormal Flag Note LastModifiedBy Organization Detail LastModifiedTime 03/27/20 25 03/28/2025 LIPID PANEL , STAND HUGO cholesterol, total 148 mg/dL <200 normal Not Available [employer] [address] [address] [place], [address], 03/28/2025 03:35:58 03/27/2003/28/2025 LIPID PANEL , STAND HUGO HDL cholesterol 39 mg/dL > or = 40 low Not Available [facility] [address] [address] [place], [address], 03/28/2025 03:35:58 03/27/2003/28/2025 LIPID PANEL , STAND HUGO triglyceride s 94 mg/dL <150 normal Not Available [facility] [address] [address] [place], [address], 03/28/2025 03:35:58 03/27/2003/28/2025 LIPID PANEL , STAND HUGO LDL-choleste rol 90 mg/dL _(laci c) normal Refer ence range : <100 Richelle able range <100 mg/dL for prima ry preve ntion ; <70 mg/dL for patie nts with CHD or diabe tic patie nts with > or = 2 CHD risk facto rs. LDL-C is now calcu lated using the Merlene n-Hop kins robiu tres n, which is a valid ated novel meliza carmen than the Fried sammie equat ion in the estim ation of LDL-C . Merlene millan SS et al. CAROLINE. 2013; 310(1 9): 2061- 2068 (http ://ed ucati on.Qu Piotr wades. com/f aq/FA Q164) Not Available [facility] [address] [place], [address], 03/28/2025 03:35:58 03/27/2003/28/2025 LIPID PANEL , STAND HUGO chol/HDLC ratio 3.8 (calc ) <5.0 normal Not Available [facility] [address] [place], [address], 03/28/2025 03:35:58 03/27/2003/28/2025 LIPID PANEL , STAND HUGO non HDL cholesterol 109 mg/dL _(laci c) <130 normal For patie nts with diabe igor plus 1 major ASCVD risk facto r, treat ing to a non-H DL-C goal of <100 mg/dL (LDL- C of <70 mg/dL ) is consi kennethd a chia pefatoui c optio n. Not Available [facility] [address] [place], [address], 03/28/2025 03:35:58 03/27/20 25 03/28/2025 HEMOG LOBIN A1C hemoglobin A1C 6.0 %_of_ [...] diabe igor for child rylie. Not Available [facility] [address] [place], [address], 03/28/2025 03:35:59 07/19/20 25 07/19/2025 HEMOG LOBIN A1C hemoglobin [...] nt diabe tic patie nts. Diffe rent metri cs may apply to speci fic patie nt popul ation s. Stand ards of Medic al Care in Diabe igor(A DA). Not Available [facility] [address] [address] , [place], [address], 07/19/2025 16:46:39 04/06/20 25 04/03/2025 XR, cervi laci spine , 4 or 5 view No observ ation record ed. [address], [address], 05/01/2025 10:12:53 04/06/20 25 04/03/2025 XR, shoul ana m, 2 or more view No observ ation record ed. [address] [address], [place], [address], 05/01/2025 10:12:53 04/06/20 25 04/03/2025 XR, cervi laci spine , 4 or 5 view No observ ation record ed. [address], [address], 05/01/2025 10:12:53 04/07/20 25 04/03/2025 XR, clavi jermain No observ ation record ed. [address], [address], 05/01/2025 10:12:53 06/24/20 25 06/23/2025 MRI, cervi laci spine , w/o contr ast No observ ation record ed. [address] [place], [address], 07/25/2025 09:32:55 06/25/2006/23/2025 MRI, christi viramontes, w/o contr ast No observ ation record ed. [email or web address] [facility] [address] [place], [address], 07/25/2025 09:32:55 Result Notes None recorded. Problems Name Problem SNOMED Code Status Onset Date Resolution Date Notes Provider Name and Address Organization Details Recorded Time Elevated blood-press ure reading without diagnosis of hypertensio n 144053061 Active 2022 Tyrone Burk MD [address], [place], [address], [employer] 5 10:54:27 Gastroesoph ageal reflux disease without esophagitis 031141480 Active 2022 Tyrone Burk MD [address], [place], [address], [employer] 10:54:27 Bronchitis 11036690 Active 2022 Tyrone Burk MD [address], [place], [address], [employer] 3 12:28:15 Sinusitis 90463853 Active 2022 Tyrone Burk MD [address], [place], [address], [employer] 3 17:24:53 Cough 81487850 Active 2022 MD [address], [address], [employer] 3 17:25:21 Seasonal allergic rhinitis 824347077 Active 2022 Tyrone Burk MD [address], [place], [address], [employer] 5 10:54:27 Sensorineur al hearing loss of bilateral ears 308884701 Active 2023 Tyrone Burk MD [address], [place], [address], [employer] 5 10:54:28 Hyperlipide vladimir 63957143 Active 2023 Tyrone Burk MD [address], [place], [address], [employer] 5 10:54:27 Hypertrigly ceridemia 881290611 Active 2023 Tyrone Burk MD [address], [place], [address], [employer] 5 10:54:27 Eruption 932667064 Active 2023 Tyrone Burk MD [address], [address], [place], [address], [employer] 4 16:37:07 Tinea corporis 48396796 Active 2023 Tyrone Burk MD [address], [address], [place], [address], [employer] 4 16:37:25 Sore throat 353771462 Active 2023 TASIA Sparrow [address], [place], [address], [employer] 4 11:04:30 Chronic cough 64634899 Active 2023 TASIA Sparrow [address], [place], [address], [employer] 4 11:07:28 Acute sinusitis 37544788 Active 2023 TASIA Sparrow [address], [place], [address], [employer] 4 09:11:16 Impacted cerumen of bilateral ears 8010940732292 108 Active 2024 Tyrone Burk MD [address], [place], [address], [facility] [employer] [facility] 5 11:18:51 Prediabetes 787098048 Active 2024 Tyrone Burk MD [address], [address], [place], [address], [facility] [employer] [facility] 5 10:54:27 Hyperbiliru binemia 38592246 Active 2024 Tyrone Burk MD [address], [place], [address], [facility] [employer] [facility] 5 10:54:27 Chronic low back pain 825036826 Active 2024 Tyrone Burk MD [address], [address], [place], [address], [employer] [facility] [employer] [facility] 5 11:08:39 Pain of right hip joint 7155645095517 02 Active 2024 Tyrone Burk MD [address], [address], [place], [address], [facility] [employer] [facility] 5 11:09:06 Lumbar spondylosis 813546424 Active 2024 Tyrone Burk MD [address], [address], [place], [address], [facility] [employer] [facility] 5 10:36:27 Degeneratio n of lumbar interverteb ral disc 37887639 Active 2024 Tyrone Burk MD [address], [place], [address], [facility] [employer] [facility] 5 10:36:34 Chronic pain of left upper limb 0133837954222 9103 Active 2024 Tyrone Burk MD [address], [address], [place], [address], [facility] [employer] [facility] [employer] [facility] 5 10:43:02 Left cervical root neuropathy 1137675814235 9106 Active 2024 Tyrone Burk MD [address], [place], [address], [facility] [employer] [facility] 5 10:44:23 Degeneratio n of cervical interverteb ral disc 73405762 Active 2024 Tyrone Burk MD [address], [place], [address], [facility] [employer] [facility] 5 10:25:51 Osteoarthri tis of joint of left shoulder region 2337879466827 08 Active 2024 Tyrone Burk MD [address], [place], [address], [facility] [employer] [facility] [employer] [facility] 5 10:26:04 Pain of left shoulder region Active 2024 Chelsea Gunter Allen null, [facility] [employer] [facility] 5 09:24:14 Cervical spondylosis 446656727 Active 2024 Tyrone Burk MD [address], [place], [address], [facility] [employer] [facility] 5 09:36:35 Tight chest 83936442 Active 2024 Tyrone Burk MD [address], [place], [address], [facility] [employer] [facility] [employer] [facility] 5 09:39:56 Problem Notes None recorded. Procedures Surgical History Date Name Laterality Status Provider Name and Address Organization Details Recorded Time 5 Ear Irrigation completed MD Tasha Sae[address], [place], [address], [facility] [employer] [facility] 10/04/2024 10:35:45 2 colonoscopy completed Kierra Alberts RN [facility] [employer] [facility] 03/10/2023 11:49:11 5 Carpal tunnel surgery completed Kierra Alberts RN [facility] 03/10/2023 11:45:17 4 Carpal tunnel surgery completed Kierra Alberts RN [facility] 03/10/2023 11:45:01 0 vasectomy completed Kierra Alberts RN [facility] 03/10/2023 11:44:13 Imaging Results None recorded. Procedure [...] Available Not Available Not Available amoxicillin 500 mg-carolu m clavulanate 125 mg tablet TAKE 1 [...] Updated DateTime 5 175.26 cm 23.8 kg/m2 74773.4 7 g 98.1 [degF] 95 % 56 /min 140/70 mm[Hg] Sheila Brown RN [facility] [employer] [facility] 5 10:40:39 Date Recorded Body height Body mass index (BMI) Body weight Body temperature Oxygen saturation Heart rate Systolic And Diastolic Provider Name and Address Organization Details Last Updated DateTime 5 175.26 cm 23.9 kg/m2 75255.3 1 g 97.4 [degF] 99 % 65 /min 130/70 mm[Hg] Sheila Brown RN [facility] [employer] 10:10:38 Date Recorded Body height Body mass index (BMI) Body weight Body temperature Oxygen saturation Heart rate Systolic And Diastolic Provider Name and Address Organization Details Last Updated DateTime 5 175.26 cm 23.8 kg/m2 22639.1 2 g 98 [degF] 96 % 57 /min 120/64 mm[Hg] Sheila Brown RN [facility] [employer] [facility] 5 10:59:04 Date Recorded Body height Body mass index (BMI) Body weight Pain severity - 0-10 verbal numeric rating [Score] - Reported Provider Name and Address Organization Details Last Updated DateTime 06/20/2025 175.26 cm 25 kg/m2 62432.11 g 6 BELLA Bahena [facility] 06/20/2025 09:19:48 Date Recorded Systolic And Diastolic Provider Name and Address Organization Details Last Updated DateTime 07/25/2025 148/80 mm[Hg] Mable Saeed [address], [facility] [address], [place], [address], [facility] 07/25/2025 09:49:51 Date Recorded Body height Body mass index (BMI) Body weight Body temperature Oxygen saturation Heart rate Provider Name and Address Organization Details Last Updated DateTime 175.26 cm 24.4 kg/m2 17123.7 9 g 97.6 [degF] 97 % 61 /min Sheila Brown RN [facility] 09:30:03 Social History Question Answer Notes LastModified by Organization Details LastModified Time Tobacco Smoking Status Never Smoker Kierra Alberts RN [facility], [facility] 03/10/2023 11:46:10 Do You Have An Advance Directive? No Information not available 03/10/2023 Are You Blind Or Do You Have Difficulty Seeing? No Information not available 03/10/2023 Is Blood Transfusion Acceptable In An Emergency? Yes Information not available 03/10/2023 What Is Your Level Of Caffeine Consumption? Moderate Soda-coke, And Sunkist [place] [email or web address] Information not available 09/13/2024 In The 14 [...] Do You Have A Medical Power Of Seam Steamer? No Information not available 03/10/2023 What Was The Date Of Your Most Recent Tobacco Screening? 06/20/2025 [email or web address] Information not available 06/20/2025 Do You Have [...] anxious, or unable to sleep at night)? [id number] Information not available 03/10/2023 Do you have difficulty concentrating, remembering or making decisions? No Information no t available 03/10/2023 Family History Relationship Description Onset Age of this Age Resolved Age Notes LastModified by Organization Details LastModified Time Sister Diabetes mellitus [email or web address] Not available 2024 09:21:37 Medical History Condition Response BLINDNESS N RHEUMATIC FEVER N BLADDER PROBLEMS N KIDNEY STONES N MRSA N OTHER # 1 N POLIO N LUNG DISEASE/DISORDER N HISTORY OF DRUG ABUSE N RADIATION / CHEMOTHERAPY N COPD N Other # 2 N BLOOD DISEASES N SURGERY N EAR OR HEARING PROBLEMS N MUMPS N SHINGLES N BOWEL PROBLEMS N DEPRESSION (INCLUDING POST ) N FEMALE PROBLEMS / INFECTIONS N FAILED BACK SYNDROME N STROKE/TIA N [...] HAVE YOU BEEN HOSPITALIZED OR SEEN IN TH E ER IN THE PAST YEAR ? N [...] ICD10 Code Diagnosis IMO Codes Diagnosis Note [id number] Tyrone Burk MD [address] [address] 03/10/2023 11:28:43 03/10/2023 12:14:20 Adult health examination 497717565 Z00.00 Anemia screening 6564431 07 Z13.0 Diabetes m ellitus screening 664811797 Z13.1 Hyperlipid emia screening 783040472 Z13.220 Nephropathy screening 17 8565043 Z13.89 Screening for malignant neoplasm of prostate 369430118 Z12.5 Thyroid di sorder screening 665820916 Z13.29 Elevated blood-pressure reading without diagnosis of hypertension 017968680 R03.0 Gastroesop hageal reflux disease without esophagitis 018648579 K21.9 [id number] Tyrone Burk MD [address] [address] 03/30/2023 12:07:15 03/30/2023 12:34:06 Elevated blood-pressure reading without diagnosis of hypertension 688415339 R03.0 Gastroesop hageal reflux disease without esophagitis 782445270 K21.9 Bronchitis 93492257 J40 [id number] Tyrone Burk MD [address] [address] 04/07/2023 17:10:53 04/07/2023 17:34:40 Sinusitis 92940356 J32.9 Cough 71499810 R05.9 Seasonal a llergic rhinitis 438679174 J30.2 [id number] Tyrone Burk MD [address] [address] 09/13/2023 12:16:51 09/13/2023 12:52:27 Gastroesophageal reflux disease without esophagitis 704087332 K21.9 Elevated blood-pressure reading without diagnosis of hypertension 191063918 R03.0 Anemia screening 5035008 07 Z13.0 Diabetes m ellitus screening 677699085 Z13.1 Hyperlipid emia screening 530963961 Z13.220 Nephropathy screening 17 4948763 Z13.89 Screening for malignant neoplasm of prostate 526697861 Z12.5 Seasonal a llergic rhinitis 990454127 J30.2 Sensorineu ral hearing loss of bilateral ears 402280108 H90.3 chronic Adult heal th examination 302669050 Z00.00 [id number] Tyrone Burk MD [address] [address] 09/14/2023 11:06:12 09/14/2023 17:39:16 [id number] Tyrone Burk MD [address] [address] 10/06/2023 10:49:41 10/06/2023 11:19:50 Gastroesophageal reflux disease without esophagitis 090539229 K21.9 Elevated blood-pressure reading without diagnosis of hypertension 108292041 R03.0 Seasonal a llergic rhinitis 996163001 J30.2 Sensorineu ral hearing loss of bilateral ears 644413950 H90.3 chronic Hyperlipidemia 97646409 E78.5 [id number] Tyrone Burk MD [address] [address] 01/27/2024 14:19:33 01/27/2024 14:44:45 Hyperlipidemia 24579716 E78.5 Gastroesop hageal reflux disease without esophagitis 973497730 K21.9 Elevated blood-pressure reading without diagnosis of hypertension 709286783 R03.0 Seasonal a llergic rhinitis 252703149 J30.2 Sensorineu ral hearing loss of bilateral ears 464564372 H90.3 chronic Hypertriglyceridemia 302 228234 E78.2 [id number] Tyrone Burk MD [address] [address] 04/18/2024 16:19:48 04/18/2024 17:02:26 Eruption 802627175 R21 Lt knee Tinea corporis 17582519 B35.4 [id number] Tyrone Burk MD [address] [address] 04/27/2024 17:15:58 04/27/2024 17:49:00 Hyperlipidemia 17258777 E78.5 Hypertriglyceridemia 302 132272 E78.2 Gastroesop hageal reflux disease without esophagitis 845886211 K21.9 Elevated blood-pressure reading without diagnosis of hypertension 282704366 R03.0 Seasonal a llergic rhinitis 063921925 J30.2 Sensorineu ral hearing loss of bilateral ears 781059518 H90.3 chronic History an d physical examination, pre-employment 601946492 Z02.1 [id number] Tyrone Burk MD [address] [address] 05/08/2024 09:40:06 05/08/2024 11:04:58 [id number] Tyrone Burk MD [address] [address] 05/17/2024 10:48:54 05/17/2024 11:18:24 Hyperlipidemia 17552786 E78.5 Hypertriglyceridemia 302 080296 E78.2 Gastroesop hageal reflux disease without esophagitis 517473706 K21.9 Elevated blood-pressure reading without diagnosis of hypertension 234336430 R03.0 Seasonal a llergic rhinitis 138656706 J30.2 Sensorineu ral hearing loss of bilateral ears 501348100 H90.3 chronic [id number] Tyrone Burk MD [place] [address] 1 08/11/2024 10:42:30 08/11/2024 11:12:57 Sore throat 182325256 J02.9 Cough 50206170 R05.9 Pt expresses concens with no abx prescripti on today, discussed abx stewardshi p, pt agreeable. [id number] Tyrone Burk MD [place] [address] 1 09/13/2024 10:48:29 09/13/2024 11:28:59 Hypertriglyceridemia 624930726 E78.2 Hyperlipidemia 28889152 E78.5 Gastroesop hageal reflux disease without esophagitis 320144641 K21.9 Elevated blood-pressure reading without diagnosis of hypertension 732117304 R03.0 Seasonal a llergic rhinitis 753382167 J30.2 Sensorineu ral hearing loss of bilateral ears 609928744 H90.3 chronic Screening for malignant neoplasm of prostate 584836070 Z12.5 Impacted c erumen of bilateral ears 1996585938 202675 H61.23 [id number] Tyrone Burk MD [place] [address] 1 09/14/2024 10:54:12 09/14/2024 16:16:11 [id number] Tyrone Burk MD [place] [address] 1 10/04/2024 10:19:51 10/04/2024 10:43:36 Hypertriglyceridemia 538667858 E78.2 Hyperlipidemia 59952819 E78.5 Gastroesop hageal reflux disease without esophagitis 448235911 K21.9 Elevated blood-pressure reading without diagnosis of hypertension 110423347 R03.0 Seasonal a llergic rhinitis 490533880 J30.2 Sensorineu ral hearing loss of bilateral ears 223233407 H90.3 chronic Impacted c erumen of bilateral ears 3130265142 012639 H61.23 Prediabetes 948120065 R7 3.03 Hyperbilirubinemia 36752 006 E80.6 [id number] Tyrone Burk MD [address] [address] 11/28/2024 10:50:55 11/28/2024 11:16:53 Chronic low back pain 954140128 M54.50 Pain of ri ght hip joint 7016971524 03525 M25.130 [id number] Tyrone Burk MD [address] [address] 12/12/2024 10:22:42 12/12/2024 10:38:18 Chronic low back pain 462936636 M54.50 Improved Pain of ri ght hip joint 7712306245 44962 M25.551 Resolved Lumbar spondylosis 53046 0009 M47.896 Pt declined for PT at this time. Degenerati on of lumbar intervertebral disc 00331331 M51.400 [id number] Tyrone Burk MD [address] [address] 12/21/2024 09:50:58 12/21/2024 10:09:08 [id number] Tyrone Burk MD [address] [address] 01/02/2025 09:50:44 01/02/2025 10:19:20 Prediabetes 086056235 R73.03 Hypertriglyceridemia 302 324689 E78.2 Hyperlipidemia 43342503 E78.5 Gastroesop hageal reflux disease without esophagitis 189440326 K21.9 Elevated blood-pressure reading without diagnosis of hypertension 133936981 R03.0 Seasonal a llergic rhinitis 742291736 J30.2 Sensorineu ral hearing loss of bilateral ears 005993706 H90.3 chronic Hyperbilirubinemia 89733 006 E80.6 resolved [id number] Tyrone Burk MD [address] [address] 04/03/2025 10:18:02 04/03/2025 10:51:58 Hyperbilirubinemia 97739811 E80.6 resolved Prediabetes 498008654 R7 3.03 Hyperlipidemia 77696668 E78.5 Hypertriglyceridemia 302 086095 E78.2 Elevated blood-pressure reading without diagnosis of hypertension 535274393 R03.0 Gastroesop hageal reflux disease without esophagitis 111162423 K21.9 Seasonal a llergic rhinitis 463604660 J30.2 Sensorineu ral hearing loss of bilateral ears 463063022 H90.3 chronic Chronic pa in of left upper limb 4956683691 8248941 M25.512 G89.29 907975 Left cervi laci root neuropathy 4510460836 4529497 M54.12 38373975 [id number] Tyrone Burk MD [address] [address] 05/01/2025 09:47:21 05/01/2025 12:06:42 Hyperlipidemia 54109643 E78.5 Hypertriglyceridemia 302 916631 E78.2 Prediabetes 972468232 R7 3.03 Hyperbilirubinemia 47916 006 E80.6 resolved Elevated blood-pressure reading without diagnosis of hypertension 501358169 R03.0 Gastroesop hageal reflux disease without esophagitis 282358720 K21.9 Seasonal a llergic rhinitis 633441325 J30.2 Sensorineu ral hearing loss of bilateral ears 435127785 H90.3 chronic Chronic pa in of left upper limb 1475068653 6910705 M25.512 G89.29 589562 Left cervi laci root neuropathy 0978587411 7997636 M54.12 41666673 Degenerati on of cervical intervertebral disc 33343499 M50.30 790722 Osteoarthr itis of joint of left shoulder region 1229890324 58803 M19.058 0270328 [id number] Tyrone Burk MD [address] [address] 05/31/2025 10:51:11 05/31/2025 11:13:49 Chronic pain of left upper limb 0211190058 7676716 M25.512 G89.29 006739 Left cervi laci root neuropathy 9912103003 3174507 M54.12 12478702 Hyperlipidemia 81092706 E78.5 Hypertriglyceridemia 302 681025 E78.2 Prediabetes 526102609 R7 3.03 Hyperbilirubinemia 70714 006 E80.6 resolved Elevated blood-pressure reading without diagnosis of hypertension 459457768 R03.0 Gastroesop hageal reflux disease without esophagitis 584591399 K21.9 Seasonal a llergic rhinitis 709748950 J30.2 Sensorineu ral hearing loss of bilateral ears 864169964 H90.3 chronic Degenerati on of cervical intervertebral disc 09619191 M50.30 342983 Osteoarthr itis of joint of left shoulder region 9519511273 08065 M19.297 9863536 [id number] Osvaldo Dill MD [facility] [address] [place] [address] 06/20/2025 08:50:17 06/20/2025 09:50:37 Pain of left shoulder region 5479258748 M25.512 95470378 [id number] Tyrone Burk MD [facility] [address] 07/25/2025 09:19:07 07/25/2025 09:44:24 Chronic pain of left upper limb 0806176065 3336391 M25.512 G89.29 913059 Left cervi laci root neuropathy 6102230175 6944387 M54.12 48754000 Hyperlipidemia 16719921 E78.5 Hypertriglyceridemia 302 481038 E78.2 Prediabetes 149206453 R7 3.03 Diet controlled Hyperbilirubinemia 01765 006 E80.6 resolved Elevated blood-pressure reading without diagnosis of hypertension 513723946 R03.0 Gastroesop hageal reflux disease without esophagitis 395592675 K21.9 Seasonal a llergic rhinitis 646217861 J30.2 Sensorineu ral hearing loss of bilateral ears 569744442 H90.3 chronic Degenerati on of cervical intervertebral disc 69703800 M50.30 204971 Osteoarthr itis of joint of left shoulder region 0116002263 78735 M19.142 4883210 Cervical spondylosis 387 565737 M47.22 473959 Tight chest 74140766 R07 .89 121649 Health Concerns Section Related Observation LastModified by Organization Detai ls LastModified Time None Recorded Concern Status LastModified by Organization Details LastModified Time None Recorded Advance Directives Directive N: Payers Insurance Date Sequence Insurance Name Policy Number Policy Lemon Covered Member ID Lemon Member ID Guarantor Name 06/20/2025 1 [facility] [id number] Salvatore L Haggitt [id number] Salvatore Sohagitt 06/20/2025 1 [place] Salvatore L Haggitt [id number] Salvatore Sohagitt 06/20/2025 1 [facility] (MEDICARE REPLACEMENT/A DVANTAGE - HMO) [id number] Salvatore L Haggitt [id number] Salvatore Sohagitt 06/20/2025 2 [place] Salvatore L Haggitt [id number] Salvatore Sohagitt 06/20/2025 [facility] (MEDICARE REPLACEMENT/A DVANTAGE - HMO) [id number] Salvatore L Haggitt [id number] Salvatore Sohagitt 07/30/2025 1 [facility] (MEDICARE REPLACEMENT/A DVANTAGE - POS) [id number] Salvatore L Haggitt [id number] [facility] File[employer] Notes Date Note Type Note Provider Name and Address Organization Details Recorded Time 04/03/2025 text/html FUV + ACV: C/o Lt [...] has hearing aids too. Tyrone Burk MD [address] [place] [address], [place] [address], [place], [address], [facility] [employer] [facility] [employer] 04/03/2025 10:52:21 05/01/2025 text/html Pt is here [...] hearing aids too. Tyrone Burk MD [address] [facility], [place] [address], [place], [address], [facility] [employer] [facility] [employer] 05/01/2025 10:26:28 05/31/2025 text/html Pt is here [...] hearing aids too. Tyrone Burk MD [address] [facility], [facility] [address], [place], [address], [facility] [employer] 05/31/2025 11:10:43 07/25/2025 text/html FUV + ACV: C/o chest [...] has hearing aids too. Tyrone Burk MD [address] [place] [address], [facility] [address], [place], [address], [place] [facility] 07/25/2025 09:51:54
[2025-08-27 16:37] VITALS: BP 156/77; PULSE 99; RESP 24; TEMP 38.4; O2SAT 100
[2025-08-27 17:19] LABS: EDCOVIDSCREEN Negative (Negative); EDINFLUASCREEN Negative (Negative); EDINFLUBSCREEN Negative (Negative)
--- NOTE | 2025-08-27 17:21 | ED.URI ---
HPI - URI/Sore Throat General Chief Complaint: Upper Respiratory Infection Stated Complaint: Cough / Ear Pain Time Seen by Provider: 08/27/25 17:15 Source: patient and RN notes reviewed Mode of arrival: ambulatory Limitations: no limitations History of Present Illness HPI Narrative: 69-year-old male patient presents today complaining of an 8 day history of cough cough body aches, chills. Reports sore throat and ear pain that started yesterday. Does report some chronic chest tightness and shortness of breath, but this is not new and he is scheduled for follow up testing regarding these symptoms. He has been taking Advil and NyQuil with some improvement. No history of asthma or COPD. He is a nonsmoker. Related Data Home Medications ?Medication ?Instructions ?Recorded ?Confirmed ?Last Taken ?Type cetirizine 10 mg tablet 10 mg PO DAILY 08/17/19 12/04/23 Unknown History famotidine 20 mg tablet 20 mg BID 10/09/20 12/04/23 Unknown History atorvastatin 10 mg tablet 10 mg PO HS 12/04/23 12/04/23 Unknown History latanoprost 0.005 % eye drops 1 drp EACH EYE HS 12/04/23 12/04/23 Unknown History Allergies Allergy/AdvReac Type Severity Reaction Status Date / Time No Known Allergies Allergy Verified 08/27/25 16:28 [facility] Past Medical History Medical History Right carpal tunnel syndrome Laceration of middle finger with tendon involvement Vision loss Hearing loss Surgical History Surgical History History of carpal tunnel surgery of right wrist History of carpal tunnel surgery of left wrist H/O: vasectomy Family History Family History Other Arthritis Cancer Diabetes mellitus Hypertension Social History Social History Smoking status: Never smoker Alcohol intake: former Alcohol use details: No alcohol since Jun 1978 Occupation/Education: occupation Additional occupation/education comments: [employer] Gender identity (if verbalized by the patient): Male Comments At time of signature, I have reviewed and agree with nursing past medical, surgical, social and family history unless otherwise noted. Please see nursing chart for further information. There is no relevant family history pertinent to the presenting complaint Exam Narrative: GENERAL: Mildly ill-appearing, well-nourished, and in no acute distress. HEAD: Normocephalic, atraumatic. EYES: EOMI. No redness or drainage. Conjunctivae normal. ENT: Mucous membranes pink and moist. Nares clear. No rhinorrhea. TMs normal bilaterally. Throat normal. Uvula midline. NECK: Normal AROM. Supple. No lymphadenopathy. CHEST: No respiratory distress. Slight crackling in the bilateral lower lobes, otherwise clear. HEART: Regular rate and rhythm. No murmur appreciated. EXTREMITIES: Normal range of motion. No edema. SKIN: Warm, dry, no rash. Capillary refill normal. Normal skin turgor. NEURO: No focal deficits. Alert and oriented x3. Gait steady. PSYCH: Normal affect. No signs of depression or anxiety. Course Course Level of Care: Express Care Visit Vital Signs Vital signs: Vital Signs Temperature 101.1 F H 08/27/25 16:37 Pulse Rate 99 08/27/25 16:37 Respiratory Rate 24 H 08/27/25 16:37 Blood Pressure 156/77 H 08/27/25 16:37 Pulse Oximetry 100 08/27/25 16:37 Oxygen Delivery Room Air 08/27/25 16:37 Temperature 100.3 F H 08/27/25 18:04 Pulse Rate 99 08/27/25 16:37 Respiratory Rate 24 H 08/27/25 16:37 Blood Pressure 156/77 H 08/27/25 16:37 Pulse Oximetry 100 08/27/25 16:37 Oxygen Delivery Room Air 08/27/25 16:37 Reviewed. Recheck of temp with extra layers of clothing removed. MDM MDM Narrative Medical decision making narrative: 69-year-old male patient presents today complaining of an 8 day history of cough cough body aches, chills. Reports sore throat and ear pain that started yesterday. Does report some chronic chest tightness and shortness of breath, but this is not new and he is scheduled for follow up testing regarding these symptoms. He has been taking Advil and NyQuil with some improvement. No history of asthma or COPD. He is a nonsmoker. Upon exam, patient is mildly ill appearing with slight crackling of bilateral lobe. Chest x-ray negative, influenza negative, COVID negative, rapid strep negative. Strep culture pending. Symptoms likely viral in etiology. Discussed [id number] medication use and duration of illness. No prescription medications indicated at this time. Anticipatory guidance given.VSS. Recheck of temp from arrival, without extra layers of clothing and stocking cap on, down to 100.3 from 101.1, unlikely to be true fever. Differential Diagnosis Differential Diagnosis: URI, bronchitis, viral syndrome, pneumonia, COVID, influenza Lab Data [facility] Lab Attestation statement: I personally reviewed the patient's lab results. Labs: Lab Results 08/27/25 08/27/25 Range/Units 17:17 17:54 POC Influenza A Ag Negative (Negative) POC Influenza B Ag Negative (Negative) POC SARS CoV-2 Ag Negative (Negative) POC Grp A Strep Screen Negative (Negative) Imaging Data Radiologist's impression: ITS Impressions Chest X-Ray 08/27/25 17:27 IMPRESSION: 1: NO ACUTE CARDIOPULMONARY DISEASE. Critical Care Time Critical Care Time Critical Care Time: No Discharge Plan Discharge Clinical Impression: Upper respiratory infection Qualifiers: URI type: unspecified URI Qualified Code(s): J06.9 - Acute upper respiratory infection, unspecified Patient Disposition: Home Condition: Stable Instructions: Antibiotic Form, Upper Respiratory Infection (DC) Additional Instructions: Your influenza, COVID-19, rapid strep, and chest x-ray are all negative today. Your symptoms are likely due to a viral illness, which is not treated with antibiotics. Virus symptoms can last for up to 7-14 days. Take Tylenol for pain or fever. Take the prednisone and Tessalon Perles as prescribed. Rest and stay hydrated. Follow up with your PCP in 5 days if symptoms are not improving. Go to the ER immediately if you develop shortness of breath, difficulty swallowing, or any other concerning symptoms. Patient Language: Macedonian Prescriptions: New benzonatate 200 mg capsule 200 mg PO TID PRN (Reason: cough) Qty: 20 0RF prednisone 20 mg tablet 40 mg PO DAILY 5 Days Qty: 10 0RF No Action famotidine 20 mg tablet 20 mg BID atorvastatin 10 mg tablet 10 mg PO HS latanoprost 0.005 % drops 1 drp EACH EYE HS fluticasone propionate [Flonase Allergy Relief] 50 mcg/actuation spray,suspension 1 spray intranasal BID Qty: 16 0RF Rx Instructions: administer into each nostril prednisone 20 mg tablet See Rx Instructions .Route .COMPLEX Qty: 9 0RF Rx Instructions: Take 40 mg daily for 3 days, 20 mg daily for 3 days cetirizine 10 mg tablet 10 mg PO DAILY Follow-up/Referrals: Wm,MD Tyrone [Primary Care Provider, Unknown] Time of Disposition: 18:15
[2025-08-27 17:56] LABS: EDSTREPNEGPOS1 Negative (Negative)
[2025-08-27 18:04] VITALS: TEMP 37.9
== END 2025-08-27 18:16 | disposition home or self-care (01) ==
PROVIDERS: Emergency Provider Nurse Practitioner; PCP Family Medicine
DX: J06.9 Acute upper respiratory infection, unspecified (principal); Z20.822 Contact with and (suspected) exposure to COVID-19
CPT/HCPCS: 71046; 87426; 87804; 87880; 99213; G0463